=== PATIENT | male | born 1935 | race Caucasian/White ===

== ENCOUNTER → 2020-01-14 13:47 | Outpatient (BNVA) | payer MEDICARE, OTHER, SELFPAY | PROVIDERS: Family Provider Family Medicine; PCP Family Medicine; Visit Provider Urology | DX: N39.0 Urinary tract infection, site not specified (principal); N40.1 Benign prostatic hyperplasia with lower urinary tract symptoms | CPT/HCPCS: 81001 ==

== ENCOUNTER 2021-03-27 06:41 | Emergency (ER) | payer MEDICARE, OTHER, SELFPAY ==
[2021-03-27] VITALS (9 sets, daily range): BP systolic 136–164; BP diastolic 73–96; PULSE 59–72; RESP 16–23; TEMP 36.6–36.7; O2SAT 98–99; BMI 31.8
--- NOTE | 2021-03-27 06:57 | ED_ITS ---
HPI - Chest Pain General: Chief Complaint: Chest Pain Stated Complaint: CP: TOOK NITRO RECEIVED SOME RELIEF Time Seen by Provider: 03/27/21 06:43 History of Present Illness: HPI narrative: 86-year-old male presents emergency room with complaint of chest pain. Patient has a known history of coronary artery disease had a bypass in 1989. Chest pain woke him from sleep at around 4 AM this morning. He took a sublingual nitro and had complete relief of pain wi thin about 5 minutes. He had no recurrence since then. He is a known history of aortic stenosis for which she sees x ray inspector in [place] and gets yearly echocardiograms. Patient denies any other recent episodes of chest pain. He did have some associated shortness of breath no radiation of pain no nausea or diaphoresis. MD complaint: chest pain Pertinent past history: coronary artery disease and CABG Onset (ago): hour(s) Timing of current episode: episodic Prior episodes: Yes Onset: during rest Pain location: substernal and left chest Pain radiation: none Severity: moderate Quality: tightness and heaviness Relieving factors: nitroglycerin Exacerbating factors: nothing Associated symptoms: Reports dyspnea; Deny abdominal pain, diaphoresis, fever(s), leg edema, nausea, palpitations, sense of impending doom, syncope or vomiting Treatment prior to arrival: none Review of Systems Const: Denies: fever(s) or diaphoresis ENMT: Denies: throat pain, ear or mastoid pain, nasal discharge or nasal c ongestion Card: Denies: palpitations or syncope Resp: Reports: dyspnea GI: Denies: abdominal pain, nausea or vomiting : Denies: flank pain, dysuria, urinary frequency or urinary urgency Skin/Breast: Denies: rash or pruritus PFSH ED PFSH: Medical History (Updated 03/27/21 @ 10:09 by Arnold Lee DO) BPH loc w urin obs/LUTS Recurrent UTI Surgical History H/O colostomy H/O hernia repair H/O major abdominal surgery H/O shoulder surgery Hx of CABG Family History Family/Other Cancer CAD (coronary artery disease) Diabetes Social History Smoking and tobacco status: never smoked Alcohol intake: never Marital status: Physical Exam Const: COMMON NORMALS: no acute distress GENERAL APPEARANCE: cooperative and comfortable ORIENTATION/CONSCIOUSNESS: Yes awake, Yes oriented to person, Yes oriented to place and Yes oriented to time HENMT: COMMON NORMALS: normocephalic, atraumatic and hearing grossly normal bilaterally HEAD & SCALP: normocephalic and atraumatic Neck/C-Spine: COMMON NORMALS: no JVD Resp: COMMON NORMALS: normal respiratory effort, No retractions, No use of accessory muscles and clear to auscultation bilaterally AUSCULTATION: clear to auscultation bilaterally Cardio: COMMON NORMALS: no JVD, regular rate, regular rhythm and No murmurs present (Cardio) RATE: regular rate RHYTHM: regular rhythm GI: COMMON NORMALS: Soft to palpation and No hepatosplenomegaly present AUSCULTATION: Yes normoactive bowel sounds PALPATION: Yes Soft to palpation, No Tenderness to palpation present (GI), No Guarding due to palpation present (GI) and Yes No hepatosplenomegaly present Extremity: COMMON NORMALS: normal to inspection, capillary refill normal, no clubbing, cyanosis or edema, no calf tenderness and no pedal edema Neuro: SENSORIUM/ORIENTATION: Yes oriented to person, Yes oriented to place and Yes oriented to time Skin: COMMON NORMALS: no rashes or lesions noted GENERAL SKIN EXAM: no rashes or lesions noted Course Vital Signs: Vital signs: Vital Signs Temperature 98.1 F 03/27/21 08:53 Pulse Rate 67 03/27/21 10:25 Respiratory Rate 20 H 03/27/21 10:25 Blood Pressure 150/76 03/27/21 10:25 Pulse Oximetry 99 03/27/21 10:25 MDM - Chest Pain MDM Narrative: Medical decision making narrative: Labs x-rays and EKGs reviewed as on the chart. No acute changes noted. Reviewed the findings with the patient. I recommended that he be placed on observation for 6-hour troponin and further evaluation he does not want to do that and instead prefers to go home. Unknown start on isosorbide mononitrate did DC his hydrochlorothiazide continue baby aspirin daily. If he has any worsening symptoms return additionally we gave him a prescription for sublingual nitro. Lab Data: Labs: Lab Results 03/27/21 03/27/21 03/27/21 06:46 06:46 06:46 WBC 7.3 10^3/uL 10^3/ uL (4.0-10.0) RBC 4.50 10^6/uL 10^6 /uL (4.1-5.3) Hgb 10.9 g/dL L g/dL (11.7-16.6) Hct 36.1 % L % (42.0-52.0) MCV 80.2 fl fl (80-94) MCH 24.2 pg L pg (28.0-34.0) MCHC 30.2 g/dL g/dL (30.0-36.0) RDW 15.2 % H % (12.1-15.1) Plt Count 250 10^3/cmm 10^3 /cmm (130-400) MPV 9.1 fL fL (7.4-10.4) Neut % (Auto) 65.1 % % Lymph % (Auto) 19.5 % % Tucker % (Auto) 10.5 % % Eos % (Auto) 4.2 % % Baso % (Auto) 0.4 % % Neut # (Auto) 4.77 10^3/uL 10^3 /uL (1.8-7.7) Lymph # (Auto) 1.4 10^3/uL 10^3/ uL (0.8-4.8) Tucker # (Auto) 0.8 10^3/uL 10^3/ uL (0.2-0.9) Eos # (Auto) 0.3 10^3/uL 10^3/ uL (0.0-0.8) Baso # (Auto) 0.0 10^3/uL 10^3/ uL (0.0-0.1) Nucleated RBC % (a uto) 0 % % Nucleated RBCs # 0.0 /100WBC /100W BC Sodium 138 mmol/L mmol/L (136-145) Potassium 4.0 mmol/L mmol/L (3.5-5.1) Chloride 103 mmol/L mmol/L (98-107) Carbon Dioxide 28 mmol/L mmol/L (22-29) Anion Gap 11.0 (5-19) BUN 14 mg/dL mg/dL (8-23) Creatinine 0.7 mg/dL mg/dL (0.7-1.2) GFR Calculation Not Reportable Glucose 89 mg/dL mg/dL (65-115) Calculated Osmolal ity 286 mOsm/kg mOsm/ kg (285-295) Calcium 9.0 mg/dL mg/dL (8.5-10.5) Total Bilirubin 0.4 mg/dL mg/dL (0.15-1.2) AST 17 U/L U/L (0-40) ALT 11 U/L U/L (0-41) Alkaline Phosphata se 70 IU/L IU/L (40-130) Troponin T Baselin e 16 ng/L H ng/L (0-15) Troponin T 120 Min [place] Troponin T Total Protein 6.9 g/dL g/dL (6.6-8.7) Albumin 3.9 g/dL g/dL (3.5-5.2) Globulin 3.0 g/dL g/dL (1.3-4.6) 03/27/21 09:01 WBC RBC Hgb Hct MCV MCH MCHC RDW Plt Count MPV Neut % (Auto) Lymph % (Auto) Tucker % (Auto) Eos % (Auto) Baso % (Auto) Neut # (Auto) Lymph # (Auto) Tucker # (Auto) Eos # (Auto) Baso # (Auto) Nucleated RBC % (a uto) Nucleated RBCs # Sodium Potassium Chloride Carbon Dioxide Anion Gap BUN Creatinine GFR Calculation Glucose Calculated Osmolal ity Calcium Total Bilirubin AST ALT Alkaline Phosphata se Troponin T Baselin e Troponin T 120 Min [place] 14.09 ng/L ng/L (0-15) Delta Troponin T -1.91 ABS# L ABS# (0-10) Total Protein Albumin Globulin Discharge Plan Discharge Patient Disposition: Home Clinical Impression: Chest pain Condition: Stable Prescriptions: New isosorbide mononitrate 30 mg tablet extended release 24 hr 30 mg PO DAILY Qty: 30 RF: 0 Discontinued hydrochlorothiazide 25 mg tablet 25 mg PO DAILY RF: 0 No Action potassium chloride 10 mEq capsule, extended release 20 meq PO DAILY RF: 0 finasteride 5 mg tablet 5 mg PO DAILY RF: 0 aspirin [Aspir-81] 81 mg tablet,delayed release (DR/EC) 81 mg PO DAILY RF: 0 omeprazole 10 mg capsule,delayed release(DR/EC) 10 mg PO DAILY RF: 0 simvastatin 80 mg tablet 80 mg PO DAILY RF: 0 metoprolol succinate 25 mg capsule,sprinkle,ER 24hr 25 mg PO DAILY RF: 0 tamsulosin 0.4 mg capsule See Rx Instructions .ROUTE .COMPLEX Qty: 30 RF: 3 Discharge Orders: Discharge ED (Routine); Ordered 03/27/21 Ordered By: Arnold Lee Referrals: Franko Tavarez MD [Primary Care Provider] - Discharge Diet: Usual diet Discharge Activity: Limit activity as instructed Patient Instructions: Opioid Safety Activity Restrictions/Additional Instructions: Case management will make arrangements for you to have a Lexiscan sestamibi stress test and a follow-up appointment with cardiology. Coding Level of Care Code ED Pointer Machine Operator for Malik Fwrosalind Exam Comprehensive
--- NOTE | 2021-03-27 06:58 | ECG_ITS ---
[facility] Test Date: 2021-03-27 Pat Name: José uLis Castaneda Department: Room: Gender: Male Bundle Clerk: : 1935 Requested By: Arnold Armas Order Number: [id number] Henok MD: Ameya Recinos M.D. Measurements Intervals [place] Rate: 75 P: 24 OR: 214 QRS: 41 QRSD: 95 T: 69 QT: 371 QTc: 415 Interpretive Statements SINUS RHYTHM WITH FIRST DEGREE AV BLOCK WITH OCCASIONAL SUPRAVENTRICULAR PREMATURE COMPLEXES NONSPECIFIC T-WAVE ABNORMALITY Compared to ECG 05/15/2019 14:07:56 Possible ischemia no longer present T-wave abnormality still present Electronically Signed On 03-27-2021 21:09:49 CDT by Ameya Recinos M.D. [email or web address] [facility].[email or web address]/store/[id number]
--- NOTE | 2021-03-27 06:58 | XRR_ITS ---
PROCEDURE INFORMATION: Exam: XR Chest Exam date and time: 03/27/2021 6:58 AM Age: 86 years old Clinical indication: Sternal or substernal pain; Prior surgery; Surgery date: 6+ months; Additional info: Chest pain TECHNIQUE: Imaging protocol: XR of the chest. Views: 1 view. COMPARISON: CR Chest 1 [place] [id number] 05/15/2019 7:55 AM FINDINGS: Lungs: Unremarkable. No consolidation. Pleural spaces: Unremarkable. No pleural effusion. No pneumothorax. Heart/Mediastinum: The patient has undergone coronary bypass surgery. The heart is not enlarged for the AP projection. Bones/joints: Bilateral shoulder prostheses are present. XR/XR chest 1V portable [id number] IMPRESSION: No acute cardiopulmonary abnormality.
[2021-03-27] MEDS: aspirin 81 mg Chew Tablet 324 MG PO (07:04)
[2021-03-27 07:08] LABS: Basophils % 0.4 %; Eosinophils # 0.3 10^3/uL (0.0-0.8); Eosinophils % 4.2 %; Hematocrit 36.1 % (42.0-52.0); Hemoglobin 10.9 g/dL (11.7-16.6); Lymphocytes # 1.4 10^3/uL (0.8-4.8); Lymphocytes % 19.5 %; Mean Corpuscular HGB Conc 30.2 g/dL (30.0-36.0); Mean Corpuscular Hemoglobin 24.2 pg (28.0-34.0); Mean Corpuscular Volume 80.2 fl (80-94); Mean Platelet Volume 9.1 fL (7.4-10.4); Monocytes # 0.8 10^3/uL (0.2-0.9); Monocytes % 10.5 %; Neutrophils # 4.77 10^3/uL (1.8-7.7); Neutrophils % 65.1 %; Nucleated Red Blood Cells % 0 %; Platelet Count 250 10^3/cmm (130-400); Red Cell Distribution Width 15.2 % (12.1-15.1); White Blood Count 7.3 10^3/uL (4.0-10.0)
[2021-03-27 07:27] LABS: Troponin(5th) Baseline 16 ng/L (0-15)
[2021-03-27 07:30] LABS: Alanine Aminotransferase 11 U/L (0-41); Albumin Level 3.9 g/dL (3.5-5.2); Alkaline Phosphatase 70 IU/L (40-130); Aspartate Amino Transferase 17 U/L (0-40); Blood Urea Nitrogen 14 mg/dL (8-23); Carbon Dioxide 28 mmol/L (22-29); Chloride 103 mmol/L (98-107); Glucose 89 mg/dL (65-115); Osmolality Calculated 286 mOsm/kg (285-295); Sodium 138 mmol/L (136-145); Total Bilirubin 0.4 mg/dL (0.15-1.2); Total Protein 6.9 g/dL (6.6-8.7)
--- NOTE | 2021-03-27 08:58 | ECG_ITS ---
[facility] Test Date: 2021-03-27 Pat Name: José Luis Castaneda Department: Room: Gender: Male Rcis: : 1935 Requested By: Arnold Armas Order Number: [id number] Henok MD: Ameya Recinos M.D. Measurements Intervals [place] Rate: 69 P: 14 SC: 218 QRS: 49 QRSD: 100 T: 90 QT: 414 QTc: 445 Interpretive Statements SINUS RHYTHM WITH FIRST DEGREE AV BLOCK WITH OCCASIONAL VENTRICULAR PREMATURE COMPLEXES NONSPECIFIC T-WAVE ABNORMALITY Compared to ECG 03/27/2021 06:47:12 Ventricular premature complex(es) now present T-wave abnormality still present Electronically Signed On 03-27-2021 21:13:37 CDT by Ameya Recinos M.D. [email or web address] [email or web address] community hospitalApplication [facility]thol[facility].[employer]/store/OM/[id number]
[2021-03-27 09:47] LABS: Troponin 5 2HR 14.09 ng/L (0-15)
[2021-03-27 09:48] LABS: Troponin 5 2HR Delta -1.91 ABS# (0-10)
--- NOTE | 2021-03-30 09:18 | DCPLANNER ---
Addendum entered by Nicole Cotto 07/22/21 17:39: Patient had a follow up appointment scheduled with [facility] - this appointment was cancelled. Original Note: auto specialty services manager had message to schedule a follow up appointment for patient with heart care and an outpatient stress test. auto specialty services manager called heart care, spoke with Mary, gave clinic patients information. A follow up appointment was scheduled for April at 10:[address] Nava. auto specialty services manager called patient and gave patient the appointment information. auto specialty services manager also called patients daughter and gave her the appointment information. 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 Daughter is unsure if patient wants to still see the special class welder in [place] or if he wants to see someone in [place]. Patient is going to keep the scheduled appointment at this time, if patient wants to continue to see his special class welder in [place], daughter will call and cancel the appointment with [facility] in [place]. As far as the stress test is concerned, nurse outreach case manager is waiting to hear back from patients daughter to see if stress test will be scheduled in [place], or if it will be scheduled in [place]. Patients daughter stated that she would call nurse outreach case manager back and inform nurse outreach case manager where the stress test will be scheduled at.
== END 2021-03-27 10:25 | disposition home or self-care (01) ==
PROVIDERS: Emergency Provider Family Medicine; PCP Family Medicine
DX: R07.9 Chest pain, unspecified (principal); Z79.82 Long term (current) use of aspirin; Z95.1 Presence of aortocoronary bypass graft
CPT/HCPCS: 71045; 80053; 84484; 85025; 93005; 99284

== ENCOUNTER 2022-05-03 13:28 | Outpatient (RCR) | payer MEDICARE, OTHER, SELFPAY | END 2022-06-01 23:59 | disposition home or self-care (01) | LOC: CR 13:28 | PROVIDERS: PCP Family Medicine; Referring Provider Internal Medicine Cardiovascular Disease; Visit Provider Family Medicine | DX: Z95.2 Presence of prosthetic heart valve (principal) | CPT/HCPCS: 93798 ==

== ENCOUNTER 2022-05-27 15:36 | Outpatient (CLI) | payer MEDICARE, OTHER, SELFPAY ==
--- NOTE | 2022-05-27 | CT_ITS ---
WS: [id number] CT HEAD NONCONTRAST HISTORY: AMNESIA TECHNIQUE: Contiguous axial imaging performed through the brain in 2.5 mm imaging. Bone and soft tiss ue windows. Sagittal and coronal reformats reviewed. All CT scans at [facility] use at least one of these dose optimization techniques: automated exposure control; mA and/or kV adjustment per pa tient size (includes targeted exams where dose is matched to clinical indication); or iterative recon struction. DLP: 1003.98 mGy.cm COMPARISON: 07/15/2008 No acute intracranial hemorrhage, midline shift or mass effect. Moderate atrophy is symmetric bilaterally. Moderate bilateral small vessel ischemic disease. There is also moderate bilateral cerebellar atrophy. There is been a significant progression of atrophy and s mall vessel ischemic disease since 2008. Ventricles: Ventricles and extra-axial spaces are dilated on the basis of the atrophy. No inferior displacement of the cerebellar tonsils. Paranasal sinuses: As visualized are clear. Mastoid air cells: Well pneumatized. Calvarium and scalp: Skull is intact with no soft tissue edema or swelling. CT/CT head wo con* [id number] IMPRESSION: 1. No acute intracranial hemorrhage or edema. 2. Significant progression of cerebellar and cerebral atrophy and small vessel ischemic disease since 2008.
== END 2022-05-27 15:37 | disposition home or self-care (01) ==
LOC: RAD 15:36
PROVIDERS: PCP Nurse Practitioner Family; Visit Provider Nurse Practitioner Family
DX: R41.3 Other amnesia (principal)
CPT/HCPCS: 70450

== ENCOUNTER 2022-06-02 11:09 | Outpatient (RCR) | payer MEDICARE, OTHER, SELFPAY | END 2022-07-02 23:59 | disposition home or self-care (01) | LOC: CR 11:09 | PROVIDERS: PCP Nurse Practitioner Family; Referring Provider Internal Medicine Cardiovascular Disease; Visit Provider Family Medicine | DX: Z95.2 Presence of prosthetic heart valve (principal) | CPT/HCPCS: 93798 ==

== ENCOUNTER 2022-08-10 06:00 | Outpatient (RCR) | payer MEDICARE, OTHER, SELFPAY | END 2022-08-30 23:59 | disposition home or self-care (01) | LOC: TPS 06:00 | PROVIDERS: PCP Nurse Practitioner Family; Visit Provider Psychiatry & Neurology Neurology | DX: I69.30 Unspecified sequelae of cerebral infarction (principal) | CPT/HCPCS: 92507; 92523; 97110; 97116; 97161 ==

== ENCOUNTER 2022-08-15 23:37 | Emergency (ER) | payer MEDICARE, OTHER, SELFPAY ==
--- NOTE | 2022-08-15 23:38 | XRR_ITS ---
PROCEDURE INFORMATION: Exam: XR Chest Exam date and time: 08/15/2022 11:48 PM Age: 87 years old Clinical indication: Chest pressure; Prior surgery; Surgery type: Cabg. Tavr; Patient HX: C/O chest pain. ; Additional info: Cp TECHNIQUE: Imaging protocol: Radiologic exam of the chest. Views: 1 view. COMPARISON: CR XR chest 1V portable [id number] 03/27/2021 7:17 AM FINDINGS: Lungs: Visualized portions of the lungs are clear. Pleural spaces: Unremarkable. No pleural effusion. No pneumothorax. Heart/Mediastinum: Heart is within normal limits of size. Bones/joints: Sternotomy wires and mediastinal surgical clips are present, consistent with previous coronary arterial bypass grafting. There are bilateral shoulder replacements. XR/XR chest 1V portable [id number] IMPRESSION: No acute infiltrate.
--- NOTE | 2022-08-15 23:42 | ECG_ITS ---
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 Measurements Intervals [place] Rate: 69 P: -19 CT: 233 QRS: 3 QRSD: 96 T: 78 QT: 378 QTc: 406 Interpretive Statements SINUS RHYTHM WITH MARKED SINUS ARRHYTHMIA WITH FIRST DEGREE AV BLOCK POSSIBLE ANTERIOR MYOCARDIAL INFARCTION , OF INDETERMINATE AGE [30 ms Q WAVE IN V3/V4, OR R < 0.2 mV IN V4] Compared to ECG 03/27/2021 08:33:38 Myocardial infarct finding now present T-wave abnormality no longer present Electronically Signed On 08-16-2022 7:43:36 HEAVY MACHINERY ASSEMBLER by Ameya Recinos M.D. [email or web address] [email or web address]/[id number]
--- NOTE | 2022-08-15 23:44 | ED_ITS ---
HPI - Chest Pain General: Chief Complaint: Chest Pain Stated Complaint: cp Time Seen by Provider: 08/15/22 23:46 Source: patient Mode of arrival: ambulatory Limitations: no limitations History of Present Illness: 87-year-old male states that at 1039 he had an episode of chest pain he had taken a nitro and states the pain immediately resolved he has been pain-free since then. Denies any diaphoresis denies any shortness of breath he is resting comfortably currently. He has had extensive cardiac history including a CABG along with a valve replacement. Denies any nausea or vomiting. Associated symptoms: Deny abdominal pain, dyspnea, fever(s), nausea or vomiting Review of Systems Const: Denies: fever(s), chills, body aches or change in appetite Eyes: Denies: blurry vision or eye discomfort ENMT: Denies: throat pain or dental pain Card: Reports: chest pain Resp: Denies: dyspnea GI: Denies: abdominal pain, nausea, vomiting or diarrhea : Denies: dysuria Musc: Denies: neck pain or back pain Skin/Breast: Denies: rash Neuro: Denies: headache(s) Psych: Denies: depression Larry/Lymph: Denies: easy bruising All/Imm: Denies: urticaria PFSH ED PFSH: Medical History (Updated 08/16/22 @ 02:44 by Jez Prasad MD) BPH loc w urin obs/LUTS Recurrent UTI Surgical History H/O colostomy H/O hernia repair H/O major abdominal surgery H/O shoulder surgery Hx of CABG Family History Family/Other Cancer CAD (coronary artery disease) Diabetes Social History Smoking and tobacco status: never smoked Alcohol intake: never Marital status: Physical Exam Const: COMMON NORMALS: no acute distress, patient oriented x3 and healthy appearing HENMT: COMMON NORMALS: normocephalic and atraumatic HEAD & SCALP: normocephalic and atraumatic Eye: COMMON NORMALS: Equal, round and reactive pupils present and EOMs intact bilaterally PUPIL: Yes Equal, round and reactive pupils present Neck/C-Spine: COMMON NORMALS: full ROM and supple Chest: COMMONS NORMALS: normal inspection of the chest and normal palpation of entire chest wall Resp: COMMON NORMALS: normal respiratory effort, No retractions, No use of acc essory muscles and clear to auscultation bilaterally AUSCULTATION: clear to auscultation bilaterally Cardio: COMMON NORMALS: regular rate, regular rhythm and No murmurs present (Cardio) RATE: regular rate RHYTHM: regular rhythm GI: COMMON NORMALS: Normal to inspection, nondistended, normoactive bowel sounds present, Soft to palpation, non-tender and no masses PALPATION: Yes Soft to palpation Extremity: COMMON NORMALS: normal to inspection and full ROM Neuro: COMMON NORMALS: patient oriented x3, moves all extremities and no focal motor deficits Psych: COMMON NORMALS: mental status grossly normal, Normal thought process present and cooperative THOUGHT PROCESS: Normal thought process present Skin: COMMON NORMALS: no rashes or lesions noted and no wounds GENERAL SKIN EXAM: no rashes or lesions noted Course Vital Signs: Vital signs: Vital Signs Temperature 97.9 F 08/15/22 23:46 Pulse Rate 72 08/16/22 01:58 Respiratory Rate 21 H 08/16/22 01:58 Blood Pressure 157/80 08/16/22 01:58 Pulse Oximetry 97 08/16/22 01:58 Oxygen Delivery Me thod 08/16/22 01:58 MDM - Chest Pain Medical Decision Making Patient presents here chest pains atypical in nature has been pain-free here his initial repeat troponin here negative his EKG is normal he is stable for discharge he is to follow-up with PCP and return if worsening. Lab Data 08/15/22 23:45 08/15/22 23:45 Radiology Impressions Chest X-Ray 08/15/22 23:38 IMPRESSION: No acute infiltrate. Laboratory Results WBC 8.1 10^3/uL (4.0-10.0) 08/15/22 23:45 RBC 4.37 10^6/uL (4.1-5.3) 08/15/22 23:45 Hgb 11.4 g/dL (11.7-16.6) L 08/15/22 23:45 Hct 36.3 % (42.0-52.0) L 08/15/22 23:45 MCV 83.1 fl (80-94) 08/15/22 23:45 MCH 26.1 pg (28.0-34.0) L 08/15/22 23:45 MCHC 31.4 g/dL (30.0-36.0) 08/15/22 23:45 RDW 14.0 % (12.1-15.1) 08/15/22 23:45 Plt Count 174 10^3/cmm (130-400) 08/15/22 23:45 MPV 9.1 fL (7.4-10.4) 08/15/22 23:45 Neut % (Auto) 62.0 % 08/15/22 23:45 Lymph % (Auto) 23.1 % 08/15/22 23:45 [place]borne % (Auto) 11.6 % 08/15/22 23:45 Eos % (Auto) 2.4 % 08/15/22 23:45 Baso % (Auto) 0.5 % 08/15/22 23:45 Neut # (Auto) 5.01 10^3/uL (1.8-7.7) 08/15/22 23:45 Lymph # (Auto) 1.9 10^3/uL (0.8-4.8) 08/15/22 23:45 [place]borne # (Auto) 0.9 10^3/uL (0.2-0.9) 08/15/22 23:45 Eos # (Auto) 0.2 10^3/uL (0.0-0.8) 08/15/22 23:45 Baso # (Auto) 0.0 10^3/uL (0.0-0.1) 08/15/22 23:45 Nucleated RBC % (auto) 0 % 08/15/22 23:45 Nucleated RBCs # 0.0 /100WBC 08/15/22 23:45 Sodium 136 mmol/L (136-145) 08/15/22 23:45 Potassium 4.2 mmol/L (3.5-5.1) 08/15/22 23:45 Chloride 102 mmol/L (98-107) 08/15/22 23:45 Carbon Dioxide 25 mmol/L (22-29) 08/15/22 23:45 Anion Gap 13.2 (5-19) 08/15/22 23:45 BUN 14 mg/dL (8-23) 08/15/22 23:45 Creatinine 0.9 mg/dL (0.7-1.2) 08/15/22 23:45 GFR Calculation Not Reportable 08/15/22 23:45 Glucose 82 mg/dL (65-115) 08/15/22 23:45 Calculated Osmolality 282 mOsm/kg (285-295) L 08/15/22 23:45 Calcium 8.6 mg/dL (8.5-10.5) 08/15/22 23:45 Total Bilirubin 0.2 mg/dL (0.15-1.2) 08/15/22 23:45 AST 17 U/L (0-40) 08/15/22 23:45 ALT 12 U/L (0-41) 08/15/22 23:45 Alkaline Phosphatase 78 U/L (40-130) 08/15/22 23:45 Troponin T Baseline 15 ng/L (0-15) 08/15/22 23:45 Troponin T 120 Minute 15.76 ng/L (0-15) H 08/16/22 02:08 Delta Troponin T 0.76 ABS# (0-10) 08/16/22 02:08 Total Protein 6.2 g/dL (6.6-8.7) L 08/15/22 23:45 Albumin 3.7 g/dL (3.5-5.2) 08/15/22 23:45 Globulin 2.5 g/dL (1.3-4.6) 08/15/22 23:45 EKG Data EKG 1: I personally reviewed and interpreted this EKG as follows: EKG interpretation date: 08/15/22 EKG interpretation time: 23:42 Interpretation: nsr hr [address] or t wave abnormalities qrs 96 qtc 397 Discharge Plan Discharge Patient Disposition: Home Clinical Impression: Chest pain Condition: Stable Prescriptions: No Action potassium chloride 10 mEq capsule, extended release 20 meq PO DAILY finasteride 5 mg tablet 5 mg PO DAILY aspirin [Aspir-81] 81 mg tablet,delayed release (DR/EC) 81 mg PO DAILY omeprazole 10 mg capsule,delayed release(DR/EC) 10 mg PO DAILY simvastatin 80 mg tablet 40 mg PO DAILY amoxicillin-pot clavulanate 875-125 mg tablet 1 tab PO BID Qty: 20 0RF Discharge Orders: Discharge ED (Routine); Ordered 08/16/22 Ordered By: Jez Prasad Referrals: Zulema Manning APN [Primary Care Provider] - Discharge Diet: Advance as tolerated Discharge Activity: Resume usual activity Patient Instructions: Chest Pain (ED) Coding Level of Care Code ED Inside Sales Account Manager for Malik Arboleda
[2022-08-15 23:46] VITALS: BP 167/91; PULSE 79; RESP 18; TEMP 36.6; O2SAT 96; BMI 25.8
[2022-08-15 23:53] LABS: Basophils % 0.5 %; Eosinophils # 0.2 10^3/uL (0.0-0.8); Eosinophils % 2.4 %; Hematocrit 36.3 % (42.0-52.0); Hemoglobin 11.4 g/dL (11.7-16.6); Lymphocytes # 1.9 10^3/uL (0.8-4.8); Lymphocytes % 23.1 %; Mean Corpuscular HGB Conc 31.4 g/dL (30.0-36.0); Mean Corpuscular Hemoglobin 26.1 pg (28.0-34.0); Mean Corpuscular Volume 83.1 fl (80-94); Mean Platelet Volume 9.1 fL (7.4-10.4); Monocytes # 0.9 10^3/uL (0.2-0.9); Monocytes % 11.6 %; Neutrophils # 5.01 10^3/uL (1.8-7.7); Nucleated Red Blood Cells % 0 %; Platelet Count 174 10^3/cmm (130-400); Red Blood Count 4.37 10^6/uL (4.1-5.3); White Blood Count 8.1 10^3/uL (4.0-10.0)
[2022-08-16 00:08] LABS: Alanine Aminotransferase 12 U/L (0-41); Albumin Level 3.7 g/dL (3.5-5.2); Alkaline Phosphatase 78 U/L (40-130); Anion Gap 13.2 (5-19); Aspartate Amino Transferase 17 U/L (0-40); Blood Urea Nitrogen 14 mg/dL (8-23); Calcium 8.6 mg/dL (8.5-10.5); Carbon Dioxide 25 mmol/L (22-29); Chloride 102 mmol/L (98-107); Globulin 2.5 g/dL (1.3-4.6); Glucose 82 mg/dL (65-115); Osmolality Calculated 282 mOsm/kg (285-295); Potassium 4.2 mmol/L (3.5-5.1); Sodium 136 mmol/L (136-145); Total Bilirubin 0.2 mg/dL (0.15-1.2); Total Protein 6.2 g/dL (6.6-8.7)
[2022-08-16 00:10] LABS: Troponin(5th) Baseline 15 ng/L (0-15)
[2022-08-16] MEDS: hyDRALAzine 20 mg/mL INJ 1 mL 10 MG IVP (01:40)
[2022-08-16 01:58] VITALS: BP 157/80; PULSE 72; RESP 21; O2SAT 97
[2022-08-16 02:32] LABS: Troponin 5 2HR 15.76 ng/L (0-15)
[2022-08-16 02:34] LABS: Troponin 5 2HR Delta 0.76 ABS# (0-10)
== END 2022-08-16 02:57 | disposition home or self-care (01) ==
PROVIDERS: Emergency Provider Emergency Medicine; PCP Nurse Practitioner Family
DX: R07.9 Chest pain, unspecified (principal); Z79.82 Long term (current) use of aspirin; Z95.1 Presence of aortocoronary bypass graft
CPT/HCPCS: 71045; 80053; 84484; 85025; 93005; 96374; 99285; J0360

== ENCOUNTER 2022-08-31 06:00 | Outpatient (RCR) | payer MEDICARE, OTHER, SELFPAY | END 2022-09-30 23:59 | disposition home or self-care (01) | LOC: TPS 06:00 | PROVIDERS: PCP Nurse Practitioner Family; Visit Provider Psychiatry & Neurology Neurology | DX: I63.9 Cerebral infarction, unspecified (principal) | CPT/HCPCS: 92507 ==

== ENCOUNTER 2022-10-01 06:00 | Outpatient (RCR) | payer MEDICARE, OTHER, SELFPAY | END 2022-10-17 23:59 | disposition home or self-care (01) | LOC: TPS 06:00 | PROVIDERS: PCP Nurse Practitioner Family; Visit Provider Psychiatry & Neurology Neurology | DX: I69.30 Unspecified sequelae of cerebral infarction (principal) | CPT/HCPCS: 92507 ==

== ENCOUNTER 2023-02-19 13:16 | Emergency (ER) | payer MEDICARE, OTHER, SELFPAY ==
[2023-02-19] VITALS (64 sets, daily range): BP systolic 129–172; BP diastolic 57–98; PULSE 69–100; RESP 13–39; TEMP 36.6–36.8; O2SAT 92–100
--- NOTE | 2023-02-19 13:20 | XRR_ITS ---
PROCEDURE INFORMATION: Exam: XR Chest Exam date and time: 02/19/2023 1:44 PM Age: 88 years old Clinical indication: Chest wall pain; Additional info: Cp TECHNIQUE: Imaging protocol: Radiologic exam of the chest. Views: 1 view. COMPARISON: CR XR chest 1V portable [id number] 08/15/2022 11:48 PM FINDINGS: Lungs: There is no consolidation. Pleural spaces: There is no pleural effusion or pneumothorax. Heart/Mediastinum: There is mild enlargement of the cardiac silhouette. Bones/joints: Sternal wires are present. There is no displacement to suggest sternal dehiscence. There is bilateral shoulder arthroplasty in satisfactory alignment. No acute fracture. XR/XR chest 1V portable [id number] IMPRESSION: No acute findings.
--- NOTE | 2023-02-19 13:32 | ECG_ITS ---
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 Measurements Intervals [place] Rate: 79 P: 0 [place]: 0 QRS: 48 QRSD: 91 T: 82 QT: 356 QTc: 409 Interpretive Statements SINUS RHYTHM WITH FIRST DEGREE AV BLOCK WITH PAC'S NONSPECIFIC T-WAVE ABNORMALITY ABNORMAL RHYTHM ECG Compared to ECG 08/15/2022 23:42:52 T-wave abnormality now present Sinus rhythm no longer present Sinus arrhythmia no longer present First degree AV block no longer present Myocardial infarct finding no longer present Electronically Signed On 02-21-2023 6:48:25 CDT by Parisa Harris M.D. [id number]
--- NOTE | 2023-02-19 13:43 | W.ED.CHESTPA ---
HPI - Chest Pain General: Chief Complaint: Chest Pain Stated Complaint: 2 day chest pain (1xnitro) Time Seen by Provider: 02/19/23 13:29 Source: patient and family Mode of arrival: ambulatory Limitations: no limitations History of Present Illness: Gentleman's family brought him to the emergency department because of concerns about episode of chest pain he had today as well as an episode he had 2 days ago. Patient states today he had left worship and was with his grandson and stopped to get something to drink and he took a drink of the Powerade that he purchased and shortly thereafter developed some chest discomfort. At the prompting of his family he took a nitroglycerin and his symptoms resolved very quickly afterwards. He has had no recurrence of symptoms since that time. He also had an episode of chest pain approximately 2 days ago that responded quickly to sublingual nitroglycerin. The episode occurred 2 days ago was when he was walking from the house back to the barn. He had no intervening chest pain between that time and this morning. He has a known history of coronary artery disease had 5 vessel bypass done approximately over 30 years ago.. 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 He currently takes Eliquis and has a history of intermittent atrial fibrillation. He denies any recent cough fevers or other concurrent illness. The episode of pain today was substernal and did not radiate and was not associated with any nausea vomiting diaphoresis etc. His family reports that he still likes to work out in the yard and mows his lawn's etc. but likely does not keep up on his water intake particularly in warm weather. 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 Pertinent past history: coronary artery disease Pain location: substernal Quality: fullness Relieving factors: nitroglycerin Associated symptoms: Deny abdominal pain, fever(s), nausea, palpitations, syncope or vomiting Review of Systems Const: Denies: fever(s) or chills Eyes: Denies: change in vision ENMT: Denies: throat pain, nasal discharge or nasal congestion Card: Reports: chest pain and irregular heart rhythm; Denies: palpitations, syncope or pre-syncope Resp: Denies: productive cough, non-productive cough or wheezing GI: Denies: abdominal pain, nausea, vomiting or diarrhea : Denies: flank pain, difficulty urinating, dysuria or urinary frequency Musc: Denies: neck pain, extremity pain or extremity swelling Skin/Breast: Denies: rash or pruritus Neuro: Denies: headache(s), numbness in extremities or weakness in extremities Endo: Denies: polyuria or polydipsia PFSH ED PFSH: Medical History (Updated 02/19/23 @ 15:25 by Joe Laboy DO) BPH loc w urin obs/LUTS Recurrent UTI Surgical History H/O colostomy H/O hernia repair H/O major abdominal surgery H/O shoulder surgery Hx of CABG Family History Family/Other Cancer CAD (coronary artery disease) Diabetes Social History Smoking and tobacco status: never smoked Alcohol intake: never Substance/Drug Use: never Marital status: Physical Exam Narrative: EXAM NARRATIVE: He appears to be very comfortable, makes good eye contact answers questions appropriately. Const: COMMON NORMALS: no acute distress, average body habitus, patient oriented x3, healthy appearing and alert GENERAL APPEARANCE: cooperative and comfortable HENMT: COMMON NORMALS: normocephalic, Normal nasal mucous membranes and turbinates present, moist oral mucous membranes and oropharynx normal HEAD & SCALP: normocephalic NOSE: Normal nasal mucous membranes and turbinates present Eye: COMMON NORMALS: Equal, round and reactive pupils present, EOMs intact bilaterally and conjunctivae normal CONJUNCTIVA: Yes conjunctivae normal PUPIL: Yes Equal, round and reactive pupils present Neck/C-Spine: COMMON NORMALS: full ROM, no lymphadenopathy, no JVD and No carotid bruits Chest: COMMONS NORMALS: normal inspection of the chest and normal palpation of entire chest wall OTHER: Midline surgical scar Resp: COMMON NORMALS: normal respiratory effort, No retractions, No use of accessory muscles and clear to auscultation bilaterally EFFORT & INSPECTION: Yes able to speak in complete sentences AUSCULTATION: clear to auscultation bilaterally Cardio: COMMON NORMALS: no JVD and Peripheral pulses 2+ throughout RHYTHM: abnormal rhythm irregularly irregular HEART SOUNDS: Murmur heart sound present PERIPHERAL PULSES: Peripheral pulses 2+ throughout GI: COMMON NORMALS: Normal to inspection, nondistended, normoactive bowel sounds present, Soft to palpation and non-tender PALPATION: Yes Soft to palpation : COMMON NORMALS: Yes no CVA tenderness BLADDER/KIDNEY EXAM: Yes no CVA tenderness Back/Pelvis: COMMON NORMALS: no CVA tenderness, thoracic and lumbar spine normal to inspection, no thoracic nor lumbar tenderness, thoraco-lumbar ROM normal and straight leg raise negative bilaterally Extremity: COMMON NORMALS: normal to inspection, full ROM, capillary refill normal, no calf tenderness and no pedal edema Neuro: COMMON NORMALS: patient oriented x3, moves all extremities, no focal motor deficits and no sensory deficits noted SENSORIUM/ORIENTATION: Yes alert CRANIAL NERVES: Yes CN normal except as noted Psych: COMMON NORMALS: mental status grossly normal Skin: COMMON NORMALS: no rashes or lesions noted, no wounds and turgor normal GENERAL SKIN EXAM: no rashes or lesions noted and turgor normal Course Reevaluation(s): Reevaluation #1: Hemoglobin results were noted. Discussed with the patient and family. No history of bright red blood or black tarry stools per rectum. He does take omeprazole but there is not any clear history of GI bleeding. Other than 81 mg of aspirin he does not take any other antiplatelets or blood thinning medication. Rectal examination performed which reveals guaiac positive results on the test card. He apparently does take Eliquis which was not on our medication profile which is likely a contributing factor to his ongoing blood loss. I discussed the implications of his low hemoglobin with his history of coronary disease and recommended a transfusion. He will need to be placed in observation to complete the transfusion and that and then at that time determine whether he needs endoscopy. Time: 14:49 Reevaluation #2: After consideration the family would like to entertain an determine if he can be transferred to [facility] for continued care. He apparently has a follow-up this coming Monday with the valve team and they are trying to reduce the likelihood that that appointment will be compromised by him being at this facility. I discussed that this would be a family requested transfer as we have the capabilities to take care of his current acute condition in the emergency department. They acknowledged this discussion. We will go ahead and contact [facility] transfer center. Again this is a patient requested transfer. He is absolutely hemodynamically stable. Time: 15:02 Reevaluation #3: First unit of packed red cells are being readied for transfusion at this time. Patient remains chest pain-free and otherwise asymptomatic. Repeat troponin is essentially unchanged. Time: 16:43 Consultations: Consultation #1: I spoke with the check and transfer beader at [facility] who mediated conversation between Rebecca the NAPPER FIXER for the hospitalist team and myself. We discussed current case and she voiced understanding and agreed to accept the patient on behalf of doctors agree for admission to [facility]. Time: 15:24 Vital Signs: Vital signs: Vital Signs Temperature 97.9 F 02/19/23 13:21 Pulse Rate 81 02/19/23 15:10 Respiratory Rate 28 H 02/19/23 14:55 Blood Pressure 146/80 02/19/23 15:10 Pulse Oximetry 99 02/19/23 15:05 Oxygen Delivery Me thod Room Air 02/19/23 13:21 MDM - Chest Pain Medical Decision Making This patient was transported to the emergency room by his family because of chest pain. He has had a couple of episodes of chest pain over the past 2 days that have been relieved by nitroglycerin. There is also a history of increasing fatigue and dyspnea with usual activity over the past 2 to 10 days or so that has changed from his baseline. He arrived chest pain-free. He had short durations of chest pain. His past history is notable for coronary disease as well as a recent TAVR within the last 12 months. Clinical examination initially revealed a alert and cooperative gentleman without any focal findings. Studies were undertaken to determine if the patient was having ACS or unstable angina versus other potential etiologies of her symptoms. Initial hemoglobin returned and was 6.9 which is a marked change from his previous hemoglobins contained within our system. He had no symptoms of lower GI bleeding however a rectal examination revealed guaiac positive stool in the vault. These findings were shared with patient and family and we discussed treatment options to include transfusion and further evaluation. Both patient and family expressed desire to be transferred to [facility] because of a upcoming follow-up with the valve replacement team this coming week. I explained to them that we have the capabilities to transfuse and do endoscopy if necessary but I understood their desires. [facility] was contacted and agreed to accept the patient. We will initiate his blood transfusion here pending bed assignment. He is currently clinically and hemodynamically stable. Does have a initial troponin elevation over the URL however he no acute ischemic changes on EKG and he was asymptomatic. Medical Records I reviewed the patient's medical records. Evidence of prior normal hemoglobins. Lab Data I reviewed the patient's lab results. 02/19/23 14:12 02/19/23 14:12 Radiology Impressions Chest X-Ray 02/19/23 13:20 IMPRESSION: No acute findings. Laboratory Results WBC 8.5 10^3/uL (4.0-10.0) 02/19/23 14:12 RBC 3.75 10^6/uL (4.1-5.3) L 02/19/23 14:12 Hgb 6.9 g/dL (11.7-16.6) L 02/19/23 14:12 Hct 25.3 % (42.0-52.0) L 02/19/23 14:12 MCV 67.5 fl (80-94) L 02/19/23 14:12 MCH 18.4 pg (28.0-34.0) L 02/19/23 14:12 MCHC 27.3 g/dL (30.0-36.0) L 02/19/23 14:12 RDW 16.3 % (12.1-15.1) H 02/19/23 14:12 Plt Count 317 10^3/cmm (130-400) 02/19/23 14:12 MPV 9.2 fL (7.4-10.4) 02/19/23 14:12 Neut % (Auto) 69.4 % 02/19/23 14:12 Lymph % (Auto) 17.5 % 02/19/23 14:12 Fleming % (Auto) 9.8 % 02/19/23 14:12 Eos % (Auto) 2.4 % 02/19/23 14:12 Baso % (Auto) 0.4 % 02/19/23 14:12 Neut # (Auto) 5.87 10^3/uL (1.8-7.7) 02/19/23 14:12 Lymph # (Auto) 1.5 10^3/uL (0.8-4.8) 02/19/23 14:12 Fleming # (Auto) 0.8 10^3/uL (0.2-0.9) 02/19/23 14:12 Eos # (Auto) 0.2 10^3/uL (0.0-0.8) 02/19/23 14:12 Baso # (Auto) 0.0 10^3/uL (0.0-0.1) 02/19/23 14:12 Nucleated RBC % (auto) 0 % 02/19/23 14:12 Nucleated RBCs # 0.0 /100WBC 02/19/23 14:12 Sodium 135 mmol/L (136-145) L 02/19/23 14:12 Potassium 4.3 mmol/L (3.5-5.1) 02/19/23 14:12 Chloride 101 mmol/L (98-107) 02/19/23 14:12 Carbon Dioxide 25 mmol/L (22-29) 02/19/23 14:12 Anion Gap 13.3 (5-19) 02/19/23 14:12 BUN 16 mg/dL (8-23) 02/19/23 14:12 Creatinine 0.9 mg/dL (0.7-1.2) 02/19/23 14:12 GFR Calculation Not Reportable 02/19/23 14:12 Glucose 78 mg/dL (65-115) 02/19/23 14:12 Calculated Osmolality 280 mOsm/kg (285-295) L 02/19/23 14:12 Calcium 8.6 mg/dL (8.5-10.5) 02/19/23 14:12 Total Bilirubin 0.3 mg/dL (0.15-1.2) 02/19/23 14:12 AST 16 U/L (0-40) 02/19/23 14:12 ALT 11 U/L (0-41) 02/19/23 14:12 Alkaline Phosphatase 75 U/L (40-130) 02/19/23 14:12 Troponin T Baseline 23 ng/L (0-15) H 02/19/23 14:12 Troponin T 120 Minute 22.23 ng/L (0-15) H 02/19/23 15:38 Delta Troponin T -0.77 ABS# (0-10) L 02/19/23 15:38 Total Protein 7.0 g/dL (6.6-8.7) 02/19/23 14:12 Albumin 4.2 g/dL (3.5-5.2) 02/19/23 14:12 Globulin 2.8 g/dL (1.3-4.6) 02/19/23 14:12 Blood Type O Positive 02/19/23 15:38 Rho(D) Type Positive 02/19/23 15:38 Antibody Screen Negative 02/19/23 15:38 Crossmatch See Detail 02/19/23 15:38 EKG Data EKG 1: I personally reviewed and interpreted this EKG as follows: Interpretation: Contemporaneous review of resting EKG reveals ventricular rate of 79 bpm. Consistent with an underlying atrial fibrillation with a controlled ventricular response. QRS duration, corrected QT interval and axis are all normal. Nonspecific ST-T wave changes noted but no acute ischemic changes noted at this time. EKG 2: I personally reviewed and interpreted this EKG as follows: Interpretation: Second EKG this visit revealed a ventricular rate of 74 bpm. Compared with previous tracing this same visit he apparently is in sinus rhythm with a first-degree AV block with a IN interval of 247 ms. QRS duration is normal corrected QT is normal. Axes are normal. Other than rhythm change no other changes from prior tracing this visit. Discharge Plan Discharge Patient Disposition: Xfer Short-Term Hosp Clinical Impression: Chest pain, Coronary artery disease, Anemia, GI bleed Condition: Stable Referrals: Zulema Manning APN [Primary Care Provider] - Coding Level of Care Code ED Mattress Filling Machine Tender for Malik Arboleda
[2023-02-19 14:19] LABS: Basophils % 0.4 %; Eosinophils # 0.2 10^3/uL (0.0-0.8); Eosinophils % 2.4 %; Hematocrit 25.3 % (42.0-52.0); Hemoglobin 6.9 g/dL (11.7-16.6); Lymphocytes # 1.5 10^3/uL (0.8-4.8); Lymphocytes % 17.5 %; Mean Corpuscular HGB Conc 27.3 g/dL (30.0-36.0); Mean Corpuscular Hemoglobin 18.4 pg (28.0-34.0); Mean Corpuscular Volume 67.5 fl (80-94); Mean Platelet Volume 9.2 fL (7.4-10.4); Monocytes # 0.8 10^3/uL (0.2-0.9); Monocytes % 9.8 %; Neutrophils # 5.87 10^3/uL (1.8-7.7); Neutrophils % 69.4 %; Nucleated Red Blood Cells % 0 %; Platelet Count 317 10^3/cmm (130-400); Red Blood Count 3.75 10^6/uL (4.1-5.3); Red Cell Distribution Width 16.3 % (12.1-15.1); White Blood Count 8.5 10^3/uL (4.0-10.0)
[2023-02-19 14:55] LABS: Alanine Aminotransferase 11 U/L (0-41); Albumin Level 4.2 g/dL (3.5-5.2); Alkaline Phosphatase 75 U/L (40-130); Anion Gap 13.3 (5-19); Aspartate Amino Transferase 16 U/L (0-40); Blood Urea Nitrogen 16 mg/dL (8-23); Calcium 8.6 mg/dL (8.5-10.5); Carbon Dioxide 25 mmol/L (22-29); Chloride 101 mmol/L (98-107); Creatinine Clr Calc Pharmacy 59.0597; Globulin 2.8 g/dL (1.3-4.6); Glucose 78 mg/dL (65-115); Osmolality Calculated 280 mOsm/kg (285-295); Potassium 4.3 mmol/L (3.5-5.1); Sodium 135 mmol/L (136-145); Total Bilirubin 0.3 mg/dL (0.15-1.2)
[2023-02-19 14:56] LABS: Troponin(5th) Baseline 23 ng/L (0-15)
--- NOTE | 2023-02-19 15:06 | PC.PHAR ---
pts daughter verified pts medications-pts daughter states the pt gets his eliquis threw the mail
--- NOTE | 2023-02-19 15:47 | ECG_ITS ---
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 Measurements Intervals [place] Rate: 74 P: 17 NV: 247 QRS: 29 QRSD: 94 T: 111 QT: 393 QTc: 436 Interpretive Statements SINUS RHYTHM WITH FIRST DEGREE AV BLOCK WITH FREQUENT VENTRICULAR PREMATURE COMPLEXES NONSPECIFIC ST & T-WAVE ABNORMALITY Compared to ECG 02/19/2023 13:32:25 Ventricular premature complex(es) now present First degree AV block now present Atrial fibrillation no longer present T-wave abnormality still present Electronically Signed On 02-19-2023 17:18:29 CDT by Parisa Harris M.D. [id number]
[2023-02-19 16:22] LABS: Troponin 5 2HR 22.23 ng/L (0-15)
[2023-02-19 16:24] LABS: Troponin 5 2HR Delta -0.77 ABS# (0-10)
--- NOTE | 2023-02-19 19:27 | ECG_ITS ---
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 Measurements Intervals [place] Rate: 77 P: 0 MS: 0 QRS: 40 QRSD: 100 T: 76 QT: 363 QTc: 411 Interpretive Statements Multifocal atrial rhythm with ABERRANT CONDUCTION OR VENTRICULAR PREMATURE COMPLEXES NONSPECIFIC ST & T-WAVE ABNORMALITY ABNORMAL RHYTHM ECG Compared to ECG 02/19/2023 15:47:35 Ventricular premature complex(es) now present Aberrant conduction of supraventricular beat(s) now present Sinus rhythm no longer present First degree AV block no longer present T-wave abnormality still present Electronically Signed On 02-22-2023 20:09:48 CDT by Yash Nava M.D. [id number]
[2023-02-19 20:45] LABS: Troponin 5 6HR 18.18 ng/L (0-15)
[2023-02-19 20:59] LABS: Troponin 5 6HR Delta -4.82 ng/L (0-12)
[2023-02-19] MEDS: diphenhydrAMINE 50 mg/mL SDV 1mL 12.5 MG IVP (23:22)
[2023-02-20] VITALS (9 sets, daily range): BP systolic 100–155; BP diastolic 70–91; PULSE 74–93; RESP 17–23; TEMP 36.7–36.8; O2SAT 96–98
[2023-02-20] MEDS: sodium chloride 0.9% 100 mL Bag 50 ML IV (02:18)
[2023-02-20 02:35] LABS: Basophils # 0.1 10^3/uL (0.0-0.1); Basophils % 0.6 %; Eosinophils # 0.2 10^3/uL (0.0-0.8); Eosinophils % 2.3 %; Hematocrit 28.6 % (42.0-52.0); Hemoglobin 8.5 g/dL (11.7-16.6); Lymphocytes # 1.9 10^3/uL (0.8-4.8); Lymphocytes % 20.9 %; Mean Corpuscular HGB Conc 29.7 g/dL (30.0-36.0); Mean Corpuscular Hemoglobin 20.8 pg (28.0-34.0); Mean Corpuscular Volume 70.1 fl (80-94); Mean Platelet Volume 9.2 fL (7.4-10.4); Monocytes % 11.2 %; Neutrophils # 5.86 10^3/uL (1.8-7.7); Neutrophils % 64.7 %; Nucleated Red Blood Cells % 0 %; Platelet Count 268 10^3/cmm (130-400); Red Blood Count 4.08 10^6/uL (4.1-5.3); Red Cell Distribution Width 18.2 % (12.1-15.1); White Blood Count 9.1 10^3/uL (4.0-10.0)
== END 2023-02-20 02:54 | disposition home or self-care (01) ==
PROVIDERS: Emergency Medicine; Emergency Provider Emergency Medicine; PCP Nurse Practitioner Family
DX: R07.9 Chest pain, unspecified (principal); I25.10 Atherosclerotic heart disease of native coronary artery without angina pectoris; D64.9 Anemia, unspecified; K92.2 Gastrointestinal hemorrhage, unspecified; Z95.1 Presence of aortocoronary bypass graft
CPT/HCPCS: 36430; 71045; 80053; 84484; 85025; 86850; 86900; 86920; 93005; 96374; 99285; J1200; P9016; P9040

== ENCOUNTER 2023-06-01 12:39 | Emergency (ER) | payer MEDICARE, OTHER, SELFPAY ==
[2023-06-01 12:46] VITALS: PULSE 99; RESP 17; TEMP 36.7; O2SAT 96
--- NOTE | 2023-06-01 13:12 | XR_ITS ---
WS: [id number] Left hand, 3 views, 06/01/2023 Clinical Data: injury Comparison: None. Findings: There is amputation of the ungual tuft of the distal phalanx of the left third finger. Degenerative c hange of the PIP and DIP joints of the left second through fifth fingers is seen. There is also degen erative change of the left first metacarpal base, first MCP joint and left first IP joint. There are small metal fragments adjacent to the left fifth metacarpal and left fifth PIP joint. Impression: 1. 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 2. 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
--- NOTE | 2023-06-01 13:12 | W.ED.EXTPRO ---
Documented by User: LEO Varner 06/01/23 14:22 HPI - Extremity Problem General: Chief complaint: Extremity Injury, Upper Stated complaint: left hand laceration Time Seen by Provider: 06/01/23 13:05 History of Present Illness: 88-year-old male patient comes in with injury to the left hand. Patient was using a planer saw this morning while working on some project and accidentally cut off the tip of his middle finger on his left hand. Patient also has a superficial abrasion to the distal ring finger on his left hand. Patient has good range of motion of the finger. Half the nail is shaved through. Tissues overlying the bone. Patient cannot recall his last tetanus. Patient has a history of coronary artery disease. Patient does take apixaban daily. Daughter is at bedside. Associated symptoms: Deny chest pain Review of Systems General: Reports: 10 or more systems reviewed and unremarkable except in HPI and below Card: Denies: chest pain Resp: Denies: dyspnea Musc: Reports: extremity pain and extremity swelling Skin/Breast: Reports: new lesions PFSH ED PFSH: Medical History (Updated 06/01/23 @ 14:55 by JAIRON Loya) Recurrent UTI BPH loc w urin obs/LUTS Surgical History H/O major abdominal surgery H/O colostomy H/O shoulder surgery H/O hernia repair Hx of CABG Family History Family/Other Cancer CAD (coronary artery disease) Diabetes Social History Smoking and tobacco/nicotine status: never used tobacco/nicotine Alcohol intake: never Substance/Drug Use: never Marital status: Physical Exam Const: COMMON NORMALS: alert HENMT: COMMON NORMALS: normocephalic HEAD & SCALP: normocephalic MOUTH: Normal oral and palatal mucosa present Neck/C-Spine: COMMON NORMALS: full ROM Resp: COMMON NORMALS: normal respiratory effort and clear to auscultation bilaterally AUSCULTATION: clear to auscultation bilaterally Cardio: COMMON NORMALS: regular rate RATE: regular rate Extremity: LEFT UPPER EXTREMITY: Yes hand & digits (Distal amputation middle finger left hand,) Left hand and digits: Yes inspection, Yes palpation, Yes ROM and Yes neurovascular exam Neuro: SENSORIUM/ORIENTATION: Yes alert Skin: TRAUMA: abrasion (Distal ring finger left hand) and laceration (Amputation finger distal middle left hand) Course Vital Signs: Vital signs: Vital Signs Temperature 98.0 F 06/01/23 12:46 Pulse Rate 99 06/01/23 12:46 Respiratory Rate 17 06/01/23 12:46 Pulse Oximetry 96 06/01/23 12:46 Oxygen Delivery Me thod Room Air 06/01/23 12:46 MDM - Extremity (Nontraumatic) Medical Decision Making Patient comes in for a injury to the left hand distal middle finger. On exam we note a amputation of his distal middle finger on the left hand. Range of motion is noted. Bleeding is controlled with pressure. Patient also has a superficial abrasion to the distal ring finger. No foreign body is noted. Suspected bone is involved on the distal middle finger. Differential diagnosis includes amputation, avulsion, foreign body. X-ray confirmed distal amputation of the middle finger. Reviewed exam with Dr. Lee who recommended contacting orthopedics office to talk to Dr. Cooney regarding follow-up appointment or further care. Talked with Julio Cooney PA-C, he agreed to see patient in the office today for further evaluation and treatment options. Wound was cleaned and Vaseline gauze was applied with light pressure dressing. Patient and family both reported understanding to follow-up with orthopedic surgeon. Patient was discharged for follow-up. XR interpretation done by ED provider, pending radiology final review Discharge Plan Discharge Patient Disposition: Home Clinical Impression: Avulsion of finger tip Qualifiers: Encounter type: initial encounter Qualified Code(s): S61.209A - Unspecified open wound of unspecified finger without damage to nail, initial encounter Condition: Stable Prescriptions: No Action finasteride 5 mg tablet 5 mg PO DAILY donepezil 10 mg tablet 10 mg PO BEDTIME aspirin [Aspir-81] 81 mg Tablet,Delayed Release (Dr/Ec) 81 mg PO DAILY simvastatin 40 mg tablet 40 mg PO QPM nitroglycerin [Nitrostat] 0.4 mg Tablet, Sublingual 0.4 mg SUBLINGUAL Q5M PRN (Reason: Chest Pain) Rx Instructions: do not exceed 3 doses per episode omeprazole 20 mg capsule,delayed release(DR/EC) 20 mg PO DAILY cholecalciferol (vitamin D3) [Vitamin D3] 25 mcg (1,000 unit) Capsule 25 mcg PO DAILY Eliquis 5 mg tablet 5 mg PO BID Discharge Orders: Discharge ED (Routine); Ordered 06/01/23 Ordered By: José Luis Mai Referrals: Zulema Manning APN [Primary Care Provider] - Bowen Cooney DO [Physician] - Julio Cooney PA [Physician Auto Specialty Services Manager] - Discharge Diet: Usual diet Activity Restrictions/Additional Instructions: Keep dressing intact. Report to orthopedic clinic for further evaluation and treatment. Coding Level of Care Code ED Tool Machine Setup Operator for Chg Fwd Documented by User: Arnold Lee DO 06/01/23 17:14 HPI - Extremity Problem General: Chief complaint: Extremity Injury, Upper Stated complaint: left hand laceration Time Seen by Provider: 06/01/23 13:05 PFSH ED PFSH: Medical History (Updated 06/01/23 @ 14:55 by JAIRON Loya) Recurrent UTI BPH loc w urin obs/LUTS Surgical History H/O major abdominal surgery H/O colostomy H/O shoulder surgery H/O hernia repair Hx of CABG Family History Family/Other Cancer CAD (coronary artery disease) Diabetes Social History Smoking and tobacco/nicotine status: never used tobacco/nicotine Alcohol intake: never Substance/Drug Use: never Marital status: Course Vital Signs: Vital signs: Vital Signs Temperature 98.0 F 06/01/23 12:46 Pulse Rate 99 06/01/23 12:46 Respiratory Rate 17 06/01/23 12:46 Pulse Oximetry 96 06/01/23 12:46 Oxygen Delivery Me thod Room Air 06/01/23 12:46 MDM - Extremity (Nontraumatic) Medical Decision Making Patient comes in for a injury to the left hand distal middle finger. On exam we note a amputation of his distal middle finger on the left hand. Range of motion is noted. Bleeding is controlled with pressure. Patient also has a superficial abrasion to the distal ring finger. No foreign body is noted. Suspected bone is involved on the distal middle finger. Differential diagnosis includes amputation, avulsion, foreign body. X-ray confirmed distal amputation of the middle finger. Reviewed exam with Dr. Lee who recommended contacting orthopedics office to talk to Dr. Cooney regarding follow-up appointment or further care. Talked with Julio Cooney PA-C, he agreed to see patient in the office today for further evaluation and treatment options. Wound was cleaned and Vaseline gauze was applied with light pressure dressing. Patient and family both reported understanding to follow-up with orthopedic surgeon. Patient was discharged for follow-up. Chart reviewed and patient discussed with midlevel. Agree with assessment and plan. Discharge Plan Discharge Patient Disposition: Home Clinical Impression: Avulsion of finger tip Qualifiers: Encounter type: initial encounter Qualified Code(s): S61.209A - Unspecified open wound of unspecified finger without damage to nail, initial encounter Condition: Stable Prescriptions: No Action finasteride 5 mg tablet 5 mg PO DAILY donepezil 10 mg tablet 10 mg PO BEDTIME aspirin [Aspir-81] 81 mg Tablet,Delayed Release (Dr/Ec) 81 mg PO DAILY simvastatin 40 mg tablet 40 mg PO QPM nitroglycerin [Nitrostat] 0.4 mg Tablet, Sublingual 0.4 mg SUBLINGUAL Q5M PRN (Reason: Chest Pain) Rx Instructions: do not exceed 3 doses per episode omeprazole 20 mg capsule,delayed release(DR/EC) 20 mg PO DAILY cholecalciferol (vitamin D3) [Vitamin D3] 25 mcg (1,000 unit) Capsule 25 mcg PO DAILY Eliquis 5 mg tablet 5 mg PO BID Discharge Orders: Discharge ED (Routine); Ordered 06/01/23 Ordered By: José Luis Mai Referrals: Zulema Manning APN [Primary Care Provider] - Bowen Cooney DO [Physician] - Julio Cooney PA [Physician Auto Specialty Services Manager] - Discharge Diet: Usual diet Activity Restrictions/Additional Instructions: Keep dressing intact. Report to orthopedic clinic for further evaluation and treatment. Coding Level of Care Code ED Tool Machine Setup Operator for Malik Arboleda
[2023-06-01] MEDS: ceFAZolin 2,000 MG in sodium chloride 0.9% (plus) 50 ML 100 MG IV (13:58)
[2023-06-01] MEDS: tetanus-dipt-pertussis 0.5 mL SDV IM (14:00)
== END 2023-06-01 14:27 | disposition home or self-care (01) ==
PROVIDERS: Emergency Provider Nurse Practitioner Family; PCP Nurse Practitioner Family
DX: W27.0XXA Contact with workbench tool, initial encounter (principal); S68.113A Complete traumatic metacarpophalangeal amputation of left middle finger, initial encounter; Z79.01 Long term (current) use of anticoagulants; Z79.82 Long term (current) use of aspirin; S60.415A Abrasion of left ring finger, initial encounter; Z95.1 Presence of aortocoronary bypass graft; Z23 Encounter for immunization
CPT/HCPCS: 73130; 90471; 90715; 96374; 99214; 99284; J0690

== ENCOUNTER 2023-06-02 12:05 | Day surgery (SDC) | payer MEDICARE, OTHER, SELFPAY ==
[2023-06-02] VITALS (9 sets, daily range): BP systolic 126–180; BP diastolic 72–86; PULSE 63–80; RESP 15–18; TEMP 36.1–36.4; O2SAT 16–100; BMI 29.9
[2023-06-02] MEDS: ketorolac 30 mg/mL INJ IVP (13:27)
[2023-06-02] MEDS: sodium chloride 0.9% 1,000 ML 30 ML IV (13:28)
[2023-06-02] MEDS: acetaminophen 1,000 MG/100 ML PIGGYBACK 400 MG IV (13:29)
--- NOTE | 2023-06-02 13:29 | PM.MISC ---
Miscellaneous Note Note: patient and family declining anesthesia, firmly desire local only
--- NOTE | 2023-06-02 13:38 | W.PM.OPSUD ---
Surgery/Procedure H&P Update DATE OF PROCEDURE: June 02, 2023 DATE H&P PERFORMED: 06/01/23 H&P UPDATE INFORMATION: I have reviewed H&P completed within last 30 days, I have examined patient prior to procedure and No changes to prior documentation PREOP DIAGNOSIS: Left middle finger traumatic fingertip amputation PRIMARY INDICATION FOR PROCEDURE: Left middle finger traumatic fingertip amputation PLANNED PROCEDURE: Operation Date: 06/02/23 14:00 Proposed Procedures p Debridement Upper Extremity And Irrigation/ Left middle finger irrigation and debridement with possible revised amputation(Left) - Bowen Cooney DO
[2023-06-02] MEDS: ceFAZolin 2,000 MG in sodium chloride 0.9% (plus) 50 ML 100 MG IV (14:19)
[2023-06-02] MEDS: ROPivacaine 0.5% SDV 30 mL 50 MG INJECTION (14:54)
[2023-06-02] MEDS: lidocaine 2% INJ 20 mL 10 ML INJECTION (14:54)
--- NOTE | 2023-06-02 15:39 | P.BOP_ITS ---
Date of Procedure: [June 02, 2023] Surgeon: [Dr. Eros PHAM] Asset Recovery Specialist(s): [Julio Cooney physician associate] Procedure(s) performed: [Left middle finger irrigation and debridement and revision amputation] Findings of the procedure(s): [Left middle finger traumatic fingertip amputation] Estimated blood loss: [5 ml] Specimen(s) removed: [n/a] Post-operative diagnosis: [Left middle finger traumatic fingertip amputation]
--- NOTE | 2023-06-02 16:48 | P.OP_ITS ---
Operative Report Date of procedure: June 02, 2023 Surgeon: Bowen Cooney DO Pump Assembler: Julio Cooney PA-C: JAIRON was necessary for assistance in this case with hand positioning to execute the procedure, retraction and protection of neurovascular structures as well as to assist with wound closure and dressing application. Procedure: Pre-op diagnosis: Left Middle finger traumatic amputation distal tip Post-op diagnosis: Same, with comminution distal phalanx, disruption of nail matrix Post-op findings: See operative report Procedure done: Left middle finger irrigation & debridement (2cm x 1cmx 0.5cm) skin subcutaneous tissue fat and bone Left middle finger revision amputation Specimens removed/disposition: Distal phalanx bony fragments excised as well as nonviablel skin Surgeon: Bowen Cooney DO Pump Assembler: Julio Cooney PA-C: FARZANA was necessary for assistance in this case with execution of the procedure with appropriate finger positioning as well as skin retraction as well as assistance in wound closure and dressing application Estimated blood loss (mL): 5 IV fluids: see nurse record Complications: None Findings: See operative report Condition: stable Disposition: same day Brief History: Patient presents to the office outpatient setting for workup of left middle finger traumatic amputation at the distal phalanx this is distal to the DIP joint as well as appears to be distal to the tendon insertions. Open wound noted with a volar oblique amputation and a prominent volar flap. We talked about treatment options at this point in time given the multiple fracture fragments and exposed bone will recommend a left middle finger irrigation debridement possible revision amputation we talked about this in detail patient pt is on blood thinners and discussing with family and pt they would like to have it primarily closed very healing by secondary intention. THey would like to just have a revision amputation with primary closure if possible. Talked about this and possible flap closures understanding risk of surgery she elects proceed all questions answered at this time is here today to proceed with a surgery today. Procedure: Patient seen evaluated preoperative holding area. Consent was reviewed and signed with patient correct extremity/digit was marked. Patient is evaluated by anesthesia once cleared for surgery pt was taken back to the operative suite pt was placed in The OR [facility] in Supine Position Armboard Applied to the left Upper Extremity Nonsterile Tourniquet Applied to the left Upper Arm. Patient elected for Local only Anesthesia. the Patient Was Prepped and Draped in Standard Orthopedic Fashion. Final Timeout Performed. Patient Received Appropriate Preoperative Antibiotics. Patient under Sterile Aseptic Technique Underwent a Digital Block. I Utilized a Sterile Turnicot at the Base of the Finger for Procedure. Finger turnicot was placed. I then began my evaluation of the traumatic amputation. Patient had a volar oblique nature that went directly through the nail matrix there was some remanent of the matrix noted. At this point in time in order to prevent a nail deformity complete matrix excision through sharp scalpel excision as well as electrocautery was used to burn any remanent of the germinal matrix. I then evaluated the bony fragments. All sharp loose devitalized bony fragments were excised I performed a standard irrigation debridement of all nonviable tissue of skin subcutaneous tissue fascia as well as bone. The size was roughly 2 cm x 1 cm x 0.5 cm at this point in time I removed the bony fragments of the remanent of the stump did have multiple sharp edges I utilized a rongeur as well as a rasp to contour this and as well as to shorten this below the soft tissue amputa tion to accommodate for possible closure primarily. I took this back to the bases of where the tendinous insertions were as well as to accommodate for DIP motion still. At this point in time I then thoroughly irrigated the wound bed. I performed traction neurectomies of the digital nerves distally as well as electrocautery with bipolar of the neurovascular structures distally. At this point in time patient had a volar flap that i brought up for primary closure. This flap coverage was contoured and had nice tension free closure with chromic suture. Finger turnicot was removed hemostasis satisfactory. I then placed simple interrupted chromic stitches to finalize closing the incision site. I then subsequently placed Xeroform 4 x 4's Curlex/soft roll and nima wrap. Patient was then subsequently taken to PACU in stable condition. Disposition: Patient taken back in stable condition recovering well. Patient will receive appropriate discharge instruction as well as pain medication postoperatively she will follow-up with me in the office in roughly 2 weeks for incision checkl. Patient understands agrees with current plan. Questions answered.
== END 2023-06-02 16:11 | disposition home or self-care (01) ==
PROVIDERS: PCP Nurse Practitioner Family; Visit Provider Student in an Organized Health Care Education/Training Program
PROC: (CPT 26951; principal; 2023-06-02 13:50)
DX: S68.123A Partial traumatic metacarpophalangeal amputation of left middle finger, initial encounter (principal); W27.0XXA Contact with workbench tool, initial encounter; Z79.82 Long term (current) use of aspirin; Z87.440 Personal history of urinary (tract) infections; N40.1 Benign prostatic hyperplasia with lower urinary tract symptoms; N13.8 Other obstructive and reflux uropathy
CPT/HCPCS: 26951; J0131; J0690; J1885; J2795; J7030

== ENCOUNTER → 2023-06-15 13:44 | Outpatient (BNVA) | payer MEDICARE, OTHER, SELFPAY | PROVIDERS: PCP Nurse Practitioner Family; Visit Provider Student in an Organized Health Care Education/Training Program | DX: S68.113A Complete traumatic metacarpophalangeal amputation of left middle finger, initial encounter; X58.XXXA Exposure to other specified factors, initial encounter | CPT/HCPCS: 99213 ==

== ENCOUNTER 2023-06-22 13:39 | Outpatient (RCR) | payer MEDICARE, OTHER, SELFPAY | END 2023-07-02 23:59 | disposition home or self-care (01) | LOC: SOT 13:39 | PROVIDERS: PCP Nurse Practitioner Family; Visit Provider Physician Assistant | DX: S68.623D Partial traumatic transphalangeal amputation of left middle finger, subsequent encounter (principal); X58.XXXD Exposure to other specified factors, subsequent encounter | CPT/HCPCS: 97110; 97165; 97530 ==

== ENCOUNTER → 2023-08-01 13:59 | Outpatient (BNVA) | payer MEDICARE, OTHER, SELFPAY | PROVIDERS: PCP Nurse Practitioner Family; Visit Provider Student in an Organized Health Care Education/Training Program | DX: S68.113A Complete traumatic metacarpophalangeal amputation of left middle finger, initial encounter; X58.XXXA Exposure to other specified factors, initial encounter | CPT/HCPCS: 99213 ==

== ENCOUNTER 2025-03-19 09:58 | Emergency (ER) | payer MEDICARE, OTHER, SELFPAY ==
[2025-03-19 10:00] VITALS: BP 160/78; PULSE 80; TEMP 36.6; O2SAT 97
--- NOTE | 2025-03-19 10:05 | ECG_ITS ---
[facility] Date: 2025-03-19 Pat Name: José Luis Castaneda Department: Room: Gender: Male Ram Car Operator: : 1935 Requested By: Paulo Merino Order Number: [id number] Henok MD: Yash Nava M.D. Measurements Intervals May Rate: 85 P: -18 NJ: 228 QRS: 42 QRSD: 98 T: 60 QT: 354 QTc: 422 Interpretive Statements SINUS RHYTHM WITH MARKED SINUS ARRHYTHMIA WITH FIRST DEGREE AV BLOCK POSSIBLE ANTERIOR MYOCARDIAL INFARCTION , PROBABLY OLD [30 ms Q WAVE IN V3/V4, OR R < 0.2 mV IN V4] INTERPRETATION BASED ON A DEFAULT AGE OF 40 YEARS Compared to ECG 02/19/2023 19:27:15 First degree AV block now present Myocardial infarct finding now present Aberrant conduction of supraventricular beat(s) no longer present T-wave abnormality no longer present Electronically Signed On 03-19-2025 13:42:28 CDT by Yash Nava M.D. [email or web address]
--- OUTSIDE RECORDS SUMMARY | 2025-03-19 10:05 | XMS_ITS | Encounter Summary ---
Author Organization [facility] Address [address] [place] [address] Care Team Providers Care Chain Saw Operator Name Role Phone Dez Tavarez MD Primary Care Provider [phone] Encounter Details Date Type Department Care Team (Latest Contact Info) Description 06/29/2005 Outpatient [facility] [address] [place] [phone] Dmitriy Patrick MD NO ADDRESS ON FILE SPINAL STENOSIS-LUMBAR (Primary Dx); Lumbosacral spondylosis; LUMBAGO; LUMB/LUMBOSAC DISC DEGEN Social History Tobacco Use Types Packs/Day Years Used Date Smoking Tobacco: Never Assessed Sex and Gender Information Value Date Recorded Sex Assigned at Not on file 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 Sex Male 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 Gender Identity Not on file Sexual Orientation Not on file documented as of this encounter Plan of Treatment Not on file documented as of this encounter Visit Diagnoses Diagnosis Spinal stenosis, lumbar region, without neurogenic claudication- Primary Lumbosacral spondylosis Lumbosacral spondylosis without myelopathy Lumbago Degeneration of lumbar or lumbosacral intervertebral disc documented in this encounter Care Teams Chain Saw Operator Relationship Specialty Start Date End Date Dez Tavarez MD [address] [place] [address] [place] [address] PCP - General Family Practice 08/03/12 documented as of this encounter
--- OUTSIDE RECORDS SUMMARY | 2025-03-19 10:05 | XMS_ITS | Encounter Summary ---
Author Organization [facility] Address [address] [place] [address] Care Team Providers Care Fruit Inspector Name Role Phone Dez Tavarez MD Primary Care Provider [phone] Encounter Details Date Type Department Care Team (Latest Contact Info) Description 06/29/[address] 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
--- OUTSIDE RECORDS SUMMARY | 2025-03-19 10:05 | XMS_ITS | Encounter Summary ---
Author Organization [facility] Address [address] [place] [address] Care Team Providers Care Front End Engineer Name Role Phone Dez Tavarez MD Primary Care Provider [phone] Encounter Details Date Type Department Care Team (Late st Contact Info) Description 10/17/2005 Outpatient Historical [facility] Orthopedics- 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
--- OUTSIDE RECORDS SUMMARY | 2025-03-19 10:05 | XMS_ITS | Encounter Summary ---
Author Organization [facility] Address [address] [facility] [place] [address] Care Team Providers Care Thread Dresser Name Role Phone Dez Tavarez MD Primary Care Provider [phone] Encounter Details Date Type Department Care Team (Late st Contact Info) Description 05/30/2005 Outpatient Historical [facility] Imaging Services 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
--- OUTSIDE RECORDS SUMMARY | 2025-03-19 10:05 | XMS_ITS | Encounter Summary ---
Author Organization [facility] Address [address] [place] [address] Care Team Providers Care System Support Administrator Name Role Phone Dez Tavarez MD Primary Care Provider [phone] Encounter Details Date Type Department Care Team (Late st Contact Info) Description 12/15/2006 Outpatient Historical [facility] Orthopedics- 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
--- OUTSIDE RECORDS SUMMARY | 2025-03-19 10:05 | XMS_ITS | Encounter Summary ---
Author Organization [facility] Address [address] [place] [address] Care Team Providers Care Tire Trimmer Hand Name Role Phone Dez Tavarez MD Primary Care Provider [phone] Encounter Details Date Type Department Care Team (Late st Contact Info) Description 07/22/2005 Outpatient Historical [facility] Dermatology- 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
--- OUTSIDE RECORDS SUMMARY | 2025-03-19 10:05 | XMS_ITS | Encounter Summary ---
Author Organization [facility] Address [address] [place] [address] Care Team Providers Care Fish Filleter Name Role Phone Dez Tavarez MD Primary Care Provider [phone] Encounter Details Date Type Department Care Team (Late st Contact Info) Description 12/31/1997 Outpatient Historical [facility] Imaging Services-[address] [place] [address] Clay Kaye MD [address] [place] [address] Sprain and strain of other specified sites of shoulder and upper arm (Primary Dx) Social History Tobacco Use Types Packs/Day Years Used Date Smoking Tobacco: Never Assessed Sex and Gender Information Value Date Recorded Sex Assigned at Not on file 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
--- OUTSIDE RECORDS SUMMARY | 2025-03-19 10:05 | XMS_ITS | Encounter Summary ---
Author Organization [facility] Address [address] [place] [address] Care Team Providers Care Beauty Sales Consultant Name Role Phone Dez Tavarez MD Primary Care Provider [phone] Encounter Details Date Type Department Care Team (Latest Contact Info) Description 10/23/2006 Outpatient Historical [facility] [address] [place] [address] Inocente Romo MD [address] [place] [address] Pre-Operative Cardiovascular Examination (Primary Dx) Social History Tobacco Use Types Packs/Day Years Used Date Smoking Tobacco: Never Assessed Sex and Gender Information Value Date Recorded Sex Assigned at Not on file 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 Gender Identity Not on file Sexual Orientation Not on file documented as of this encounter Plan of Treatment Not on file documented as of this encounter Procedures Procedure Name Priority Date/Time Associated Diagnosis Comments URINALYSIS MICROSCOPY ONLY Routine 10/23/2006 12:07 PM CDT URINALYSIS W/REFLEX MICROSCOPIC Routine 10/23/2006 12:07 PM CDT CBC WITHOUT DIFFERENTIAL Routine 10/23/2006 11:30 AM CDT documented in this encounter Results * URINALYSIS MICROSCOPY ONLY (10/23/2006 12:07 PM CDT) WBC URINE 0-2 0 - 2 INTERFACE SYSTEM RBC UA None Seen 0 - 2 INTERFACE SYSTEM HYALINE CAST None Seen 0 - 2 INTERFA CE SYSTEM BACTERIA UA None Seen None Seen INTERFAC E SYSTEM 10/23/2006 12:0 7 PM CDT Inocente Romo MD URINE ORDERABLES Edited Performing Organization Address [facility] de Phone Number INTERFACE SYSTEM Refer to clinic/hospital department * (ABNORMAL) URINALYSIS (10/23/2006 12:07 PM CDT) COLOR UA Yellow Straw INTERFACE SYSTEM CLARITY UA SL CLOUDY Clear INTERFACE SYSTEM LEUKOCYTE ESTERASE UA NEGATIVE NEGATIVE INTERFACE SYSTEM NITRITE UA NEGATIVE NEGATIVE INTERFACE SYSTEM PH UA 6.5 5.0 - 9.0 INTERFACE SYSTEM PROTEIN UA NEGATIVE NEGATIVE INTERFACE SYSTEM GLUCOSE UA NEGATIVE NEGATIVE INTERFACE SYSTEM KETONES UA NEGATIVE NEGATIVE INTERFACE SYSTEM UROBILINOGEN UA 0.2 0.2 INTE RFACE SYSTEM BILIRUBIN UA NEGATIVE NEGATIVE INTERFA CE SYSTEM BLOOD UA NEGATIVE NEGATIVE INTERFACE SYSTEM SPECIFIC GRAVITY UA 1.015 1.005 - 1.030 INTERFACE SYSTEM MICRO EXAM Yes(A) No INTERFACE SYSTEM 10/23/2006 12:0 7 PM CDT Inocente Romo MD URINE ORDERABLES Edited Performing Organization Address [facility] Phone Number INTERFACE SYSTEM Refer to clinic/hospital department * (ABNORMAL) CBC WITHOUT DIFFERENTIAL (10/23/2006 11:30 AM CDT) WBC 8.3 4.8 - 10.8 K/ul INTERFACE SYSTEM RBC 4.97 4.60 - 6.20 Mil/ul INTERFACE SYSTEM HEMOGLOBIN 15.2 14.0 - 18.0 g/dL INTERFACE SYSTEM HEMATOCRIT 44.1 41.0 - 53.0 % INTERFACE SYSTEM MCV 88.7 84.0 - 103.0 Fl INTERFACE SYSTEM MCH 30.6 27.0 - 34.0 pg INTERFACE SYSTEM MCHC 34.5 30.0 - 35.0 g/dL INTERFACE SYSTEM RDW 13.0 11.0 - 14.5 % INTERFACE SYSTEM PLATELETS 183 140 - 440 K/ul INTERFACE SYSTEM MPV 9.9 8.9 - 12.8 Fl INTERFACE SYSTEM NEUTROPHILS 59.2 42.2 - 75.2 % INTERFACE SYSTEM LYMPHOCYTES 25.5 24.0 - 44.0 % INTERFACE SYSTEM MONOCYTES 10.3(H) 2.0 - 10.0 % INTERFACE SYSTEM EOSINOPHILS 4.8 0.0 - 7.0 % INTERFACE SYSTEM BASOPHILS 0.2 0.0 - 1.0 % INTERFACE SYSTEM NEUTROPHIL ABSOLUTE 4.9 2.0 - 8.0 K/ul INTERFACE SYSTEM LYMPHOCYTE ABSOLUTE 2.1 1.2 - 4.0 K/ul INTERFACE SYSTEM MONOCYTE ABSOLUTE 0.9(H) 0.1 - 0.6 K/ul INTERFACE SYSTEM EOSINOPHIL ABSOLUTE 0.4 0.0 - 0.7 K/ul INTERFACE SYSTEM BASOPHILS ABSOLUTE 0.0 0.0 - 0.2 K/ul INTERFACE SYSTEM 10/23/2006 11:3 0 AM CDT us Inocente Romo MD HEMATOLOGY ORDERABLES E dited INTERFACE SYSTEM Refer to clinic/hospital department documented in this encounter Visit Diagnoses Diagnosis Pre-operative cardiovascular examination- Primary documented in this encounter Care Teams Beauty Sales Consultant Relationship Specialty Start Date End Date Dez Tavarez MD [address] [place] [address] [place] [address] PCP - General Family Practice 08/03/12 documented as of this encounter
--- OUTSIDE RECORDS SUMMARY | 2025-03-19 10:05 | XMS_ITS | Encounter Summary ---
Author Organization [facility] Address [address] [place] [address] Care Team Providers Care Inspector Precision Name Role Phone Dez Tavarez MD Primary Care Provider [phone] Encounter Details Date Type Department Care Team (Late st Contact Info) Description 11/03/2006 Outpatient Historical [facility] Orthopedics- 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
--- OUTSIDE RECORDS SUMMARY | 2025-03-19 10:05 | XMS_ITS | Encounter Summary ---
Author Organization [facility] Address [address] [place] [address] Care Team Providers Care Orthotic Aide Name Role Phone Dez Tavarez MD Primary Care Provider [phone] Encounter Details Date Type Department Care Team (Late st Contact Info) Description 11/15/2006 Outpatient Historical [facility] Orthopedics- 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
--- OUTSIDE RECORDS SUMMARY | 2025-03-19 10:05 | XMS_ITS | Encounter Summary ---
Author Organization [facility] Address [address] [place] [address] Care Team Providers Care Director Digital Name Role Phone Dez Tavarez MD Primary Care Provider [phone] Encounter Details Date Type Department Care Team (Latest Contact Info) Description 05/01/2002 Outpatient Historical [facility] Rheumatology- [place] 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
--- OUTSIDE RECORDS SUMMARY | 2025-03-19 10:05 | XMS_ITS | Encounter Summary ---
Author Organization [facility] Address [address] [place] [address] Care Team Providers Care Hypercil Core Transformer Assembler Name Role Phone Dez Tavarez MD Primary Care Provider [phone] Reason for Referral * Outpatient Services (Routine) - Closed Specialty Diagnoses / Procedures Referred By Juan alcocer Referred To Contact Diagnoses Chest pain Old ND (myocardial infarction) Procedures CL LT HEART CATHETERIZATION Julio Hernandez MD NO ADDRESS ON FILE Referral ID Status Reason Start Date Expiration Date Visits Re quested Visits Authorized [id number] Closed 04/01/2013 05/02/2014 1 1 Encounter Details Date Type Department Care Team (Latest Contact Info) Description 04/01/2013 Ancillary Orders [facility] Cardiac Main [place] [facility] [employer] [facility] [address] [place] [id number] Julio Hernandez MD NO ADDRESS ON FILE Chest pain (Primary Dx); Old ND (myocardial infarction) Social History Tobacco Use Types Packs/Day Years Used Date Smoking Tobacco: Never Smokeless Tobacco: Never Alcohol Use Standard Drinks/Week Comments No 0 (1 standard drink = 0.6 oz pur e alcohol) Sex and Gender Information Value Date Recorded Sex Assigned at Not on file Legal Sex Male 5:33 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 COORDINATOR Gender Identity Not on file Sexual Orientation Not on file Occupation Industry Job Start Date Job End Date Not on file Not on file Not on file Not on file documented as of this encounter Plan of Treatment Not on file documented as of this encounter Results * CL LT HEART CATHETERIZATION (04/02/2013 11:12 AM CDT) [facility] - 04/02/2013 11:23 AM CDT S: 1) Left main and 3-vessel coronary artery disease 2) Low-normal LV contractility, unchanged 3) Patent SVG to the LAD 4) Patent SVG to a ramus intermedius branch 5) Patent SVG to an obtuse marginal branch of the left posterior circumflex coronary artery 6) Patent SVG to the RCA 7) No new high-grade narrowings found when compared to the 08/15 cath RECOMMENDATIONS: 1) Ongoing medical therapy. His small non-STEMI 4 days ago may have been due to spasm or small-vessel disease. Julio Hernandez MD, [facility], [facility] - 04/02/2013 11:23 AM CDT CARDIAC CATHETERIZATION REPORT [place], [place] PATIENT: José Luis Castaneda PATIENT NUMBER: [id number] BIRTHDATE: 1935 REFERRING PHYSICIAN: Dez Tavarez MD DATE: 04/02/2013 TIME: 11:19 AM PROCEDURE: Left heart catheterization with coronary and saphenous vein graft angiography, left ventricular cineangiography, 6FR angioseal closure of the right common femoral artery INDICATION: Recent non-STEMI, CAD with prior CABG After carefully discussing potential benefits/ risks of and alternatives to cardiac catheterization and possible intervention at length with the patient, informed consent was obtained. The right groin was prepped and draped in the usual manner. Continuous blood pressure, ECG, and oxygen saturation monitoring were utilized. Carefully titrated conscious sedation was achieved. Following infiltration of 1% lidocaine local anesthetic, a 6 FR right femoral arterial sheath was inserted over a flexible guidewire using single wall technique. There were no apparent complications. CORONARY ANGIOGRAPHY: Coronary angiography, saphenous vein graft , and left internal mammary angiography was performed with 6-4 left and 6-4 right Napoleon and 6FR CLAY diagnostic catheters. The results were as follows: There is severe calcification of the coronary arteries. The left main coronary artery is 70% narrowed. The left anterior descending coronary artery is 90% narrowed proximally. The SVG to the LAD is widely patent. The distal LAD is small in caliber. The left posterior circumflex coronary artery is chronically occluded. An SVG to an obtuse marginal branch of the left posterior circumflex coronary artery is widely patent. A small ramus intermedius branch is 90% narrowed proximally. The SVG to this branch is widely patent. The right coronary artery is dominant and chronically occluded proximally. The SVG to the RCA is widely patent. His COLUNGA has been previously visualized and is not a graft. No collaterals are seen. LEFT VENTRICULAR CINEANGIOGRAPHY: LV cineangiography was performed with a 6 FR pigtail catheter in EDWARDS projection. 20 ml of contrast were used. The left ventricle is normal in size. All wall segments contract fairly well. Estimated left ventricular ejection fraction is 50%. No significant mitral insufficiency is noted. There is no significant gradient across the aortic valve. Procedure Note Julio Hernandez MD - 04/02/2013 CARDIAC CATHETERIZATION REPORT [place], [place] PATIENT: José Luis Castaneda PATIENT NUMBER: [id number] BIRTHDATE: 1935 REFERRING PHYSICIAN: Dez Tavarez MD DATE: 04/02/2013 TIME: 11:19 AM PROCEDURE: Left heart catheterization with coronary and saphenous veingraft angiography, left ventricular cineangiography, 6FR angioseal closureof the right common femoral artery INDICATION: Recent non-STEMI, CAD with prior CABG After carefully discussing potential benefits/ risks of and alternativesto cardiac catheterization and possible intervention at length with thepatient, informed consent was obtained. The right groin was prepped anddraped in the usual manner. Continuous blood pressure, ECG, and oxygensaturation monitoring were utilized. Carefully titrated conscious sedationwas achieved. Following infiltration of 1% lidocaine local anesthetic, a 6 FR rightfemoral arterial sheath was inserted over a flexible guidewire usingsingle wall technique. There were no apparent complications. CORONARY ANGIOGRAPHY: Coronary angiography, saphenous vein graft , andleft internal mammary angiography was performed with 6-4 left and 6-4right Napoleon and 6FR CLAY diagnostic catheters. The results were asfollows: There is severe calcification of the coronary arteries. The left main coronary artery is 70% narrowed. The left anterior descending coronary artery is 90% narrowed proximally.The SVG to the LAD is widely patent. The distal LAD is small in caliber. The left posterior circumflex coronary artery is chronically occluded. AnSVG to an obtuse marginal branch of the left posterior circumflex coronaryartery is widely patent. A small ramus intermedius branch is 90% narrowed proximally. The SVG tothis branch is widely patent. The right coronary artery is dominant and chronically occluded proximally.The SVG to the RCA is widely patent. His COLUNGA has been previously visualized and is not a graft. No collaterals are seen. LEFT VENTRICULAR CINEANGIOGRAPHY: LV cineangiography was performed witha 6 FR pigtail catheter in EDWARDS projection. 20 ml of contrast were used.The left ventricle is normal in size. All wall segments contract fairlywell. Estimated left ventricular ejection fraction is 50%. Nosignificant mitral insufficiency is noted. There is no significantgradient across the aortic valve. IMPRESSIONS: 1) Left main and 3-vessel coronary artery disease 2) Low-normal LV contractility, unchanged 3) Patent SVG to the LAD 4) Patent SVG to a ramus intermedius branch 5) Patent SVG to an obtuse marginal branch of the left posteriorcircumflex coronary artery 6) Patent SVG to the RCA 7) No new high-grade narrowings found when compared to the 08/15 cath RECOMMENDATIONS: 1) Ongoing medical therapy. His small non-STEMI 4 days ago may have beendue to spasm or small-vessel disease. Julio Hernandez MD, [facility], [facility] us Julio Hernandez MD FLUOROSCOPY ORDERABLES Final R esult [facility] documented in this encounter Visit Diagnoses Diagnosis Chest pain- Primary Chest pain, unspecified Old ND (myocardial infarction) Old myocardial infarction CAD (coronary artery disease)- Primary Coronary atherosclerosis of unspecified type of vessel, [place] or graft Old ND (myocardial infarction) Old myocardial infarction Chest pain Chest pain, unspecified documented in this encounter Care Teams Hypercil Core Transformer Assembler Relationship Specialty Start Date End Date Dez Tavarez MD [address] [place] [address] [place] [address] PCP - General Family Practice 08/03/12 documented as of this encounter
--- OUTSIDE RECORDS SUMMARY | 2025-03-19 10:05 | XMS_ITS | Encounter Summary ---
Author Organization [facility] Address [address] [place] [address] Care Team Providers Care Roofing Foreman Name Role Phone Dez Tavarez MD Primary Care Provider [phone] Encounter Details Date Type Department Care Team (Latest Contact Info) Description 10/05/2004 Outpatient Historical [facility] PreAdmission Center [address] [place] [address] [place] [address] Inocente Romo MD [address] [place] [address] PREOP CARDIOVASC EXAM (Primary Dx) Social History Tobacco Use Types Packs/Day Years Used Date Smoking Tobacco: Never Assessed Sex and Gender Information Value Date Recorded Sex Assigned at Not on file 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 Gender Identity Not on file Sexual Orientation Not on file documented as of this encounter Plan of Treatment Not on file documented as of this encounter Procedures Procedure Name Priority Date/Time Associated Diagnosis Comments URINALYSIS W/REFLEX MICROSCOPIC Routine 10/05/2004 10:15 AM CDT CBC WITH DIFFERENTIAL Routine 10/05/2004 9:54 AM CDT BASIC METABOLIC PANEL Routine 10/05/2004 9:54 AM CDT documented in this encounter Results * URINALYSIS (10/05/2004 10:15 AM CDT) COLOR UA Yellow Straw INTERFACE SYSTEM CLARITY UA Clear Clear INTERFACE SYSTEM LEUKOCYTE ESTERASE UA NEGATIVE NEGATIVE INTERFACE SYSTEM NITRITE UA NEGATIVE NEGATIVE INTERFACE SYSTEM PH UA 7.0 5.0 - 9.0 INTERFACE SYSTEM PROTEIN UA NEGATIVE NEGATIVE INTERFACE SYSTEM GLUCOSE UA NEGATIVE NEGATIVE INTERFACE SYSTEM KETONES UA NEGATIVE NEGATIVE INTERFACE SYSTEM UROBILINOGEN UA 1.0 INTE RFACE SYSTEM BILIRUBIN UA NEGATIVE NEGATIVE INTERFA CE SYSTEM BLOOD UA NEGATIVE NEGATIVE INTERFACE SYSTEM SPECIFIC GRAVITY UA 1.010 1.005 - 1.030 INTERFACE SYSTEM MICRO EXAM No No INTERFACE SYSTEM 10/05/2004 10:1 5 AM CDT Inocente Romo MD URINE ORDERABLES Final Result Performing Organization Address [facility] Phone Number INTERFACE SYSTEM Refer to clinic/hospital department * BASIC METABOLIC PANEL (10/05/2004 9:54 AM CDT) GLUCOSE 71 70 - 110 mg/dL INTERFACE SYSTEM BUN 19 9 - 20 mg/dL INTERFACE SYSTEM CREATININE 1.1 0.7 - 1.5 mg/dL (inactive) INTERFACE SYSTEM SODIUM 142 136 - 145 mEq/L INTERFACE SYSTEM POTASSIUM 4.6 3.5 - 5.0 mEq/L INTERFACE SYSTEM CHLORIDE 106 95 - 110 mEq/L INTERFACE SYSTEM CO2 29 22 - 32 mmol/l INTERFACE SYSTEM ANION GAP 12 9 - 20 mEq/L INTERFACE SYSTEM OSMOLALITY, CALCULATED 293 275 - 295 mOsm/Kg INTERFACE SYSTEM CALCIUM 8.8 8.4 - 10.5 mg/dL INTERFACE SYSTEM 10/05/2004 9:54 AM CDT Inocente Romo MD CHEMISTRY ORDERABLES Fi nal Result Performing Organization Address [facility] Phone Number INTERFACE SYSTEM Refer to clinic/hospital department * (ABNORMAL) CBC WITH DIFFERENTIAL (10/05/2004 9:54 AM CDT) WBC 6.0 4.8 - 10.8 K/ul INTERFACE SYSTEM RBC 4.62 4.60 - 6.20 Mil/ul INTERFACE SYSTEM HEMOGLOBIN 13.9(L) 14.0 - 18.0 g/dL INTERFACE SYSTEM HEMATOCRIT 41.9 41.0 - 53.0 % INTERFACE SYSTEM MCV 90.7 84.0 - 103.0 Fl INTERFACE SYSTEM MCH 30.1 27.0 - 34.0 pg INTERFACE SYSTEM MCHC 33.2 30.0 - 35.0 g/dL INTERFACE SYSTEM RDW 13.5 11.0 - 14.5 percent(in active) INTERFACE SYSTEM PLATELETS 227 140 - 440 K/ul INTERFACE SYSTEM MPV 9.5 8.9 - 12.8 Fl INTERFACE SYSTEM NEUTROPHILS 53.3 42.2 - 75.2 percent(in active) INTERFACE SYSTEM LYMPHOCYTES 23.2(L) 24.0 - 44.0 percent(in active) INTERFACE SYSTEM MONOCYTES 16.3(H) 2.0 - 10.0 percent(in active) INTERFACE SYSTEM EOSINOPHILS 6.5 0.0 - 7.0 % INTERFACE SYSTEM BASOPHILS 0.7 0.0 - 1.0 percent(in active) INTERFACE SYSTEM NEUTROPHIL ABSOLUTE 3.2 2.0 - 8.0 K/uL INTERFACE SYSTEM LYMPHOCYTE ABSOLUTE 1.4 1.2 - 4.0 K/ul INTERFACE SYSTEM MONOCYTE ABSOLUTE 1.0(H) 0.1 - 0.6 K/ul INTERFACE SYSTEM EOSINOPHIL ABSOLUTE 0.4 0.0 - 0.7 K/ul INTERFACE SYSTEM BASOPHILS ABSOLUTE 0.0 0.0 - 0.2 K/ul INTERFACE SYSTEM 10/05/2004 9:54 AM CDT us Inocente Romo MD HEMATOLOGY ORDERABLES F inal Result INTERFACE SYSTEM Refer to clinic/hospital department documented in this encounter Visit Diagnoses Diagnosis Pre-operative cardiovascular examination- Primary documented in this encounter Care Teams Roofing Foreman Relationship Specialty Start Date End Date Dez Tavarez MD [address] [place] [address] [place] [address] PCP - General Family Practice 08/03/12 documented as of this encounter
--- OUTSIDE RECORDS SUMMARY | 2025-03-19 10:05 | XMS_ITS | Encounter Summary ---
Author Organization [facility] Address [address] [place] [address] Care Team Providers Care Director Of Clinical Applications Name Role Phone Dez Tavarez MD Primary Care Provider [phone] Encounter Details Date Type Department Care Team (Late st Contact Info) Description 09/06/2006 Outpatient Historical [facility] Dermatology- [address] [place] 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
--- OUTSIDE RECORDS SUMMARY | 2025-03-19 10:05 | XMS_ITS | Encounter Summary ---
Author Organization [facility] Address [address] [place] [address] Care Team Providers Care Web Services Architect Name Role Phone Dez Tavarez MD Primary Care Provider [phone] Encounter Details Date Type Department Care Team (Late st Contact Info) Description 01/23/2013 Ancillary Orders [facility] Orthopedics- [address] [place] [address] [place] [address] Inocente Romo MD [address] [place] [address] Pain in joint, shoulder region (Primary Dx) Social History Tobacco Use Types Packs/Day Years Used Date Smoking Tobacco: Never Smokeless Tobacco: Never Alcohol Use Standard Drinks/Week Comments No 0 (1 standard drink = 0.6 oz pur e alcohol) Sex and Gender Information Value Date Recorded Sex Assigned at Not on file Legal Sex Male 5:33 AM SILK SPOTTER Gender Identity Not on file Sexual Orientation Not on file Occupation Industry Job Start Date Job End Date Not on file Not on file Not on file Not on file documented as of this encounter Plan of Treatment Not on file documented as of this encounter Results * XR SHOULDER 2+ VW RIGHT (01/23/2013 3:15 PM CDT) Anatomical Region Laterality Modality Upper Extremity Computed Radiogr aphy Narrative 01/25/2013 6:46 AM CDT Four views of the right shoulder including internal rotation, external rotation, scapular Y and axillary lateral x-rays reveal 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 There is no evidence of any loosening of the component. There is some evidence of glenoid wear with an inferior glenoid osteophyte. There is some narrowed acromiohumeral distance. There are no fractures or dislocations. Procedure Note Maxine Dang PA - 01/25/2013 Four views of the right shoulder including internal rotation, externalrotation, scapular Y and axillary lateral x-rays reveal hemiarthroplastycomponents in good position. There is no evidence of any loosening of thecomponent. There is some evidence of glenoid wear with an inferiorglenoid osteophyte. There is some narrowed acromiohumeral distance.There are no fractures or dislocations. us Inocente Romo MD DIAGNOSTIC IMAGING [facility] Final Result documented in this encounter Visit Diagnoses Diagnosis Pain in joint, shoulder region- Primary documented in this encounter Care Teams Web Services Architect Relationship Specialty Start Date End Date Dez Tavarez MD [address] [place] [address] [place] [address] PCP - General Family Practice 08/03/12 documented as of this encounter
--- OUTSIDE RECORDS SUMMARY | 2025-03-19 10:05 | XMS_ITS | Encounter Summary ---
Author Organization [facility] Address [address] [place] [address] Care Team Providers Care Binding Folder Machine Name Role Phone Dez Tavarez MD Primary Care Provider [phone] Encounter Details Date Type Department Care Team (Late st Contact Info) Description 05/30/2005 Outpatient Historical [facility] [place] [address] Social History Tobacco Use Types Packs/Day Years Used Date Smoking Tobacco: Never Assessed Sex and Gender Information Value Date Recorded Sex Assigned at Not on file Legal Sex Male 5:33 AM PRECISION MECHANICAL INSTRUMENT MAKER Gender Identity Not on file Sexual Orientation Not on file documented as of this encounter Plan of Treatment Not on file documented as of this encounter Visit Diagnoses Not on filedocumented in this encounter Care Teams Binding Folder Machine Relationship Specialty Start Date End Date Dez Tavarez MD [address] [place] [address] [place] [address] PCP - General Family Practice 08/03/12 documented as of this encounter
--- OUTSIDE RECORDS SUMMARY | 2025-03-19 10:05 | XMS_ITS | Encounter Summary ---
Author Organization [email or web address] [facility] Address [address] [place] [address] Care Team Providers Care Outboard System Operator Name Role Phone Dez Tavarez MD Primary Care Provider [phone] Encounter Details Date Type Department Care Team (Latest Contact Info) Description 04/03/2008 Outpatient Historical [facility] Hand Therapy [address] [place] [address] [place] [address] Jose Manuel Ugarte MD [address] [place] [address] Primary Localized Osteoarthrosis, Forearm Social History Tobacco Use Types Packs/Day Years Used Date Smoking Tobacco: Never Assessed Sex and Gender Information Value Date Recorded Sex Assigned at Not on file Legal Sex Male 5:33 AM NUT GRINDER Gender Identity Not on file Sexual Orientation Not on file documented as of this encounter Plan of Treatment Not on file documented as of this encounter Visit Diagnoses Diagnosis Primary localized osteoarthrosis, forearm documented in this encounter Care Teams Outboard System Operator Relationship Specialty Start Date End Date Dez Tavarez MD [address] [place] [address] [place] [address] PCP - General Family Practice 08/03/12 documented as of this encounter
--- OUTSIDE RECORDS SUMMARY | 2025-03-19 10:05 | XMS_ITS | Encounter Summary ---
Author Organization [facility] Address [address] [place] [address] Care Team Providers Care Household Worker Name Role Phone Dez Tavarez MD Primary Care Provider [phone] Encounter Details Date Type Department Care Team (Late st Contact Info) Description 03/23/2005 Outpatient Historical [facility] Orthopedics- [address] [place] [address] [place] [address] Inocente Romo MD [address] [place] [address] Knee joint replacement (Primary Dx) Social History Tobacco Use Types Packs/Day Years Used Date Smoking Tobacco: Never Assessed Sex and Gender Information Value Date Recorded Sex Assigned at Not on file Legal Sex Male 5:33 AM PUBLIC POLICY MANAGER Gender Identity Not on file Sexual Orientation Not on file documented as of this encounter Plan of Treatment Not on file documented as of this encounter Visit Diagnoses Diagnosis Knee joint replacement- Primary Knee joint replacement by other means documented in this encounter Care Teams Household Worker Relationship Specialty Start Date End Date Dez Tavarez MD [address] [place] [address] [place] [address] PCP - General Family Practice 08/03/12 documented as of this encounter
--- OUTSIDE RECORDS SUMMARY | 2025-03-19 10:05 | XMS_ITS | Clinical Summary ---
Author Organization [facility] Address [address] Attn: Epic Prelude ADT ANURAG INGRAM [address] Care Team Providers Care Waste Disposal Attendant Name Role Phone Unavailable Primary Care Provider Unavailabl e Allergies Active Allergy Reactions Criticality Noted Date Comments Ciprofloxacin Rash Low 07/21/2011 Sulfa (Sulfonamide Antibiotics) Rash Low 07/03 Medications omeprazole (PriLOSEC) 20 mg Capsule, Delayed Release(E.C.) Take 20 mg by mouth daily. Active finasteride (PROSCAR) 5 mg tablet Take 5 mg by mouth daily. Active simvastatin (ZOCOR) 40 mg tablet Take 40 mg by mouth daily with supper. Active aspirin (ECOTRIN EC) 81 mg Tablet, Delayed Release (E.C.) Take 81 mg by mouth daily. Active apixaban (ELIQUIS) 5 mg tablet Take 1 Tablet (5 mg) by mouth 2 times daily. 60 Tablet 11 3 Active donepeziL (ARICEPT) 10 mg tablet Take 10 mg by mouth daily at bedtime. 3 Active nitroglycerin (NITROSTAT) 0.4 mg Tablet, Sublingual Place 1 Tablet (0.4 mg) under tongue every 5 minutes as needed for Chest Pain. 25 Tablet 3 3 Active CHOLECALCIFEROL , VITAMIN D3, ORAL Take by mouth daily. Active ferrous sulfate 325 mg (65 mg iron) tablet Take 325 mg by mouth daily. Active metoprolol succinate (TOPROL XL) 25 mg Extended Release 24 hour tablet Take 1 Tablet (25 mg) by mouth daily. 100 Tablet 3 4 Active Additional Information Patient not taking.Reported on 02/18/2025 amoxicillin (AMOXIL) 500 mg capsule Take 4 Capsules (2,000 mg) by mouth one time as needed for Other (See Comment) (30 to 60 minutes prior to dental procedures). 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, psychotic disturbance, mood disturbance, or anxiety 05/16/2023 PAF (paroxysmal atrial fibrillation) 02/21/2023 Chronic anticoagulation 02/21/2023 History of CVA (cerebrovascular accident) 2022 Amaurosis fugax of left eye 06/14/2022 Acute alteration in mental status 06/14/2022 S/P TAVR (transcatheter aortic valve replacement ) 03/23/2022 Overview (03/23/2022): 03/22/22: 26 mm Gruebr-Shena Ultra bovine prosthesis 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 03/22/2022 Overview (03/22/2022): NYHA class III Stable angina 01/27/2022 Overview (01/27/2022): Added automatically from request for surgery [id number] SOB (shortness of breath) 01/27/2022 Overview (01/27/2022): Added automatically from request for surgery [id number] Osteoarthritis of right shoulder 12/07/2016 Acute postoperative pain of shoulder 12/05/2016 Severe aortic stenosis 10/10/2016 Non-rheumatic mitral regurgitation 10/10/2016 Anemia, unspecified 03/06/2013 Dyslipidemia 03/06/2013 Low HDL (under 40) 03/07/2012 Hx of CABG 03/07/2012 Old VT (myocardial infarction) 03/07/2012 HTN (hypertension) 09/07/2011 ASHD (arteriosclerotic heart disease) 09/07/2011 Resolved Problems Problem Noted Date Diagnosed Date Resolved Date Edema 09/07/2011 10/10/2017 Encounters Date Type Department Care Team Description 02/18/2025 2:45 PM CDT Office Visit [facility] Cardiology [facility] and [facility] [address] [place] [phone] Janice Kelly DO PAF (paroxysmal atrial fibrillation) (CMS/HCC) (Primary Dx); S/P TAVR (transcatheter aortic valve replacement); Non-rheumatic mitral regurgitation; Hx of CABG; ASHD (arteriosclerotic heart disease) from Last 3 Months Immunizations Immunization Administration Dates Next Due Influenza Vaccine Split 3+ Yrs PF IM 08/03/2012 Pneumococcal conjugate, unspecified formulation 04/02/2009 Family History Medical History Relation Name Comments Diabetes Father Heart Disease Father Relation Name Status Comments Father Mother Social History Tobacco Use Types Packs/Day Years Used Date Smoking Tobacco: Former Cigarettes Q uit: 07/03/1969 Smokeless Tobacco: Never Tobacco Cessation:Counseling Given: Not Answered Alcohol Use Standard Drinks/Week Comments No 0 (1 standard drink = 0.6 oz pur e alcohol) Sex and Gender Information Value Date Recorded Sex Assigned at Not on file Legal Sex Male 5:23 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 Gender Identity Not on file Sexual Orientation Not on file Last Filed Vital Signs Vital Sign Reading Time Taken Comments Blood Pressure 157/71 02/18/2025 2:40 PM CDT Pulse 89 02/18/2025 2:40 PM CDT Temperature 36.9 C (98.4 F) 11/12/2024 10:40 AM CDT Respiratory Rate 16 05/14/2024 11:31 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 Oxygen Saturation 96% 02/18/2025 2:40 PM CDT Inhaled Oxygen Concentration - - Weight 80.7 kg (178 lb) 02/18/2025 2:40 PM CDT Height 167.6 cm (5' 6 ) 02/18/2025 2:40 PM CDT Body Mass Index 28.73 02/18/2025 2:40 PM CDT Plan of Treatment Upcoming Encounters Date Type Department Care Team (Late st Contact Info) Description 05/13/2025 10:45 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 Appointment [facility] Neurology [facility] [address] [place] [address] Félix Mart MD [address] [place] [address] 02/17/2026 2:00 PM CDT Office Visit [facility] Cardiology [address] [place] and [facility] [address] [place] [address] Janice Kelly, [address] [place] [address] Health Maintenance Due Date Last Done Comments ZOSTER VACCINE (1 of 2) 01/07/1986 RSV VACCINE (60+ or ) (1 - 1-dose 75+ series) 01/07/2011 PNEUMOCOCCAL VACCINE 50+ YEA RS (2 of 2 - PPSV23, PCV20, or PCV21) 11/04/2014 09/09/2014, 04/02/2009 , 07/05/2001 INFLUENZA VACCINE (#1) 2025 , 04/12/2023, 05/03/2022, Additional history exists COVID-19 Vaccine ( - 2024-2 6 season) 2025 05/07/2021, 08/28/2020, 07/31/2020 DTAP/TDAP/TD VACCINES (3 - T d or Tdap) 06/01/2033 06/01/2023, 06/18/2013, 07/03/1997 Medical Devices Implanted Type Area Bandage Winding Machine Operator Device Identifier Shelf Expiration Date Model / Serial / Lot Closure Perclose Proglide [id number] - [id number] Implanted:Qty: 1 on 03/22/2022 at [facility] Closure Device Right: Groin HOOKS- VASC DEVICE 12/31/2023 [id number] / / Closure Perclose Proglide [id number] - [id number] Implanted:Qty: 1 on 03/22/2022 at [facility] Closure Device Right: Groin HOOKS- VASC DEVICE 12/31/2023 [id number] / / [id number] Dev Closure Angioseal 6fr Vip [id number] - [id number] Implanted:Qty: 1 on 03/22/2022 by Prudencio Martinez MD at [facility] Closure Device Left: Groin HOOKS [employer] 11/30/2022 [id number] / / [id number] Vlv Sapien3 Aortic 26mm Lp [id number] - [id number] Implanted:Qty: 1 on 03/22/2022 at [facility] Valve Left: Heart [employer] [id number] / [id number] / [place] [address] MEDICARE RAILROAD Advance Directives For more information, please contact: [phone] * Full Code (Latest Code Status on File) Date Activated Date Inactivated Comments 03/22/2022 5:58 AM 03/23/2022 8:07 PM * Full Code Date Activated Date Inactivated Comments 02/01/2022 11:28 AM 02/01/2022 6:12 PM * Full Code Date Activated Date Inactivated Comments 02/01/2022 8:03 AM 02/01/2022 11:27 AM
--- OUTSIDE RECORDS SUMMARY | 2025-03-19 10:05 | XMS_ITS | Encounter Summary ---
Author Organization [facility] Address [address] [place] [address] Care Team Providers Care Tribunal Member Name Role Phone Dez Tavarez MD Primary Care Provider [phone] Encounter Details Date Type Department Care Team (Late st Contact Info) Description 12/02/[address] [facility] Orthopedics- 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
--- OUTSIDE RECORDS SUMMARY | 2025-03-19 10:05 | XMS_ITS | Encounter Summary ---
Author Organization [facility] Address [address] [place] [address] Care Team Providers Care Cardiovascular Technologist Name Role Phone Dez Tavarez MD Primary Care Provider Encounter Details Date Type Department Care Team (Latest Contact Info) Description 11/03/2006 Outpatient Historical [facility] Cardiovascular Services [address] [place] [address] Inocente Romo MD [address] [place] [address] Pain in Soft Tissues of Limb (Primary Dx) Social History Tobacco Use Types Packs/Day Years Used Date Smoking Tobacco: Never Assessed Sex and Gender Information Value Date Recorded Sex Assigned at Not on file Legal Sex 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
--- OUTSIDE RECORDS SUMMARY | 2025-03-19 10:05 | XMS_ITS | Encounter Summary ---
Author Organization [facility] Address [address] [place] [address] Care Team Providers Care Shampooer Name Role Phone Dez Tavarez MD Primary Care Provider [phone] Encounter Details Date Type Department Care Team (Late st Contact Info) Description 07/12/2006 Outpatient Historical [facility] Orthopedics- [address] [place] [phone] Inocente Romo MD [address] [place] [phone] Shoulder Joint Replacement (Primary Dx); Primary Localized Osteoarthrosis, Lower Leg Social History Tobacco Use Types Packs/Day Years Used Date Smoking Tobacco: Never Assessed Sex and Gender Information Value Date Recorded Sex Assigned at Not on file Legal Sex Male 5:33 AM MANAGER LVN Gender Identity Not on file Sexual Orientation Not on file documented as of this encounter Plan of Treatment Not on file documented as of this encounter Visit Diagnoses Diagnosis Shoulder joint replacement- Primary Shoulder joint replacement by other means Primary localized osteoarthrosis, lower leg documented in this encounter Care Teams Shampooer Relationship Specialty Start Date End Date Dez Tavarez MD [address] [place] [address] [place] [address] PCP - General Family Practice 08/03/12 documented as of this encounter
--- OUTSIDE RECORDS SUMMARY | 2025-03-19 10:05 | XMS_ITS | Encounter Summary ---
Author Organization [facility] Address [address] [place] [address] Care Team Providers Care Front Office Coordinator Name Role Phone Dez Tavarez MD Primary Care Provider [phone] Encounter Details Date Type Department Care Team (Latest Contact Info) Description 06/15/2005 Outpatient [facility] [address] [place] [phone] Dmitriy Patrick MD NO ADDRESS ON FILE LUMB/LUMBOSAC DISC DEGEN (Primary Dx); LUMBAGO; Lumbosacral spondylosis; SPINAL STENOSIS-LUMBAR Social History Tobacco Use Types Packs/Day Years Used Date Smoking Tobacco: Never Assessed Sex and Gender Information Value Date Recorded Sex Assigned at Not on file 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 Gender Identity Not on file Sexual Orientation Not on file documented as of this encounter Plan of Treatment Not on file documented as of this encounter Visit Diagnoses Diagnosis Degeneration of lumbar or lumbosacral intervertebral disc- Primary Lumbago Lumbosacral spondylosis Lumbosacral spondylosis without myelopathy Spinal stenosis, lumbar region, without neurogenic claudication documented in this encounter Care Teams Front Office Coordinator Relationship Specialty Start Date End Date Dez Tavarez MD [address] [place] [address] [place] [address] PCP - General Family Practice 08/03/12 documented as of this encounter
--- OUTSIDE RECORDS SUMMARY | 2025-03-19 10:05 | XMS_ITS | Patient Health Record ---
Author Organization [facility] Address [address] [place] [address] Care Team Providers Care Poultry Dressing Worker Name Role Phone Zulema Manning Primary Care Provider ZULEMA MANNING Unavailable Unavailable Allergies No Known Allergies Results Component Value Reference Range Flag Notes CBC w\ Auto Diff [id number] Reviewed date:04/30/2024 12:40:29 PM Interpretation: Performing Lab: Notes/Report: Diagnosis Description: Dizziness and giddiness WBC 10.0 4.5-11.0 X10'3 RBC 4.37 4.50-5.90 X10'6 LOW Hgb 11.5 13.5-17.5 G/DL LOW Hct 37.3 41.0-53.0 % LOW MCV 85.4 80.0-100.0 FL MCH 26.3 27.0-31.0 PG LOW MCHC 30.8 31.0-37.0 G/DL LOW Platelet 361 150-400 X10'3 RDW-SD 46.6 35.0-49.0 FL RDW-CV 14.9 12.2-15.6 % MPV 9.7 9.2-12.0 FL Neutro Auto% 74.7 40.0-70.0 % HI Lymph Auto% 12.3 22.0-44.0 % LOW Hardee Auto% 10.6 3.0-7.0 % HI Eos Auto% 1.5 2.0-4.0 % LOW Baso Auto% 0.4 0.0-1.0 % Imm Gran% .5 .0-.4 % HI Neutro Abs 7.46 .80-7.70 Absolute Neutrophil Count 7460 NA Lymph Abs 1.23 .10-4.10 Hardee Abs 1.06 .20-1.00 HI Eos Abs .15 .00-.40 Baso Abs .04 .00-.20 Imm Gran Abs .05 .00-.10 NRBC# .00 .00-.20 NRBC% .00 .00-.20 /100 int act WBC's Comprehensive Metabolic Pane l (CMP) [id number] Reviewed date:04/30/2024 03:11:20 PM Interpretation: Performing Lab: Notes/Report: Diagnosis Description: Dizziness and giddiness Glucose Serum 66 71-110 MG/DL LOW Testing p erformed at [facility], [address] [place] [address] [place] [address]. CLIA ID#: [id number] BUN 15 7-21 MG/DL Creat .88 .57-1.17 MG/DL Use of this assay is not recommended for patients undergoing treatment with phenindione, due to the potential for falsely depressed results. J-wyxxss-p-benzoquinone imine (NAPQI) is a metabolite of acetaminophen, NAPQI concentrations of apparoximately 10 mg/L correlation to toxic levels of acetaminophen demonstrates a greater than or equil to 10% change in results. NAPQI concentrations greater than this may lead to falsely depressed results for patient samples. GFR 82.6 NA Calculation pe rformed from GFR calculator provided by the National [employer]. Glomerular Filtration rate(GRF) is the best overall index of kidney function. Normal GFR varies according to age,sex, body size, and declines with age. The National Kidney Foundation recommends using the CKD-EPI Creatinine Equation(2020) to estimate GFR. BUN/Creat Ratio 17.0 12.0-20.0 % Total Protein 6.1 5.8-8.0 G/DL Albumin 3.6 3.2-4.8 G/DL Globulin 2.4 2.3-3.5 G/DL Alb/Glob 1.5 0.8-2.2 Calcium 8.9 8.7-10.4 MG/DL Sodium 141 136-145 MMOL/L Potassium 4.7 3.5-5.1 MMOL/L Chloride 107 98-107 MMOL/L CO2 29.4 20.0-31.0 MMOL/L Anion Gap 9 5-15 Alk Phos 102 46-116 Bili Total .3 .3-1.2 MG/DL Use of this assay is not recommended for patients undergoing treatment with eltrombopag due to the potential for falsely elevated results. AST/SGOT 20 15-37 UNIT/L ALT/SGPT 14 12-78 UNIT/L Osmo Serum,Calculated 291 280-300 MOSM/KG Influenza A/B PCR-- [id number] Reviewed date:04/29/2024 04:05:51 PM Interpretation: Performing Lab: Notes/Report: Influenza B PCR negative Influenza A PCR [place] A [id number] Reviewed date:04/29/2024 04:05:19 PM Interpretation: Performing Lab: Notes/Report: Strep Screen A negative COVID 19 PCR--[id number] Reviewed date:04/29/2024 04:06:09 PM Interpretation: Performing Lab: Notes/Report: COVID 19 PCR negative Urinalysis--[id number] Reviewed date:04/29/2024 04:06:47 PM Interpretation: Performing Lab: Notes/Report: Specific gravity UA 1.020 Urine Nitrite negative Color UA yellow Urine Blood negative Clarity UA clear Urine pH 6.0 Urine Glucose negative Urine Leukocyte negative Urine Protein negative Urine Bilirubin negative Urine Ketone negative Urobilinogen negative Reason For Referral Reason Dizziness Diagnosis 1 Dizziness (R42) Referral Organization [facility] Referring Provider First Name Zulema Referring Provider Last Name Nigel Referring Provider Speciality Nurse Prac titioner Referred Provider Specialty Physical The rapist General Notes Gerri Elam 05/09 02:25:02 PM >faxed to [facility] Referral Priority Routine Referral Appointment Date 05/17/2024 Medications Medication SIG (Take, Route, Frequency, Duration) Notes Start Date End Date Status Aspirin 81 81 MG Tablet Delayed Release Oral 09/10/2019 Active Finasteride 5 MG Tablet Take 1 tablet by mouth once daily; Duration: 30 Active Aspirin 81 MG Tablet Delayed Release 1 tablet Orally Once a day Active Fluticasone Propionate 50 MCG/ACT Suspension 2 spray in each nostril Nasally Once a day; Duration: 30 day(s) 07/12/2022 Active Simvastatin 40 MG Tablet TAKE 1 TABLET B Y MOUTH ONCE DAILY IN THE EVENING; Duration: 90 Active Omeprazole 20 MG Capsule Delayed Release Take 1 capsule by mouth once daily; Duration: 90 Active hydroCHLOROthiazide 25 MG Tablet Oral 09/10/2019 Active Metoprolol Tartrate 25 MG Tablet Oral 09/10/2019 Active Omeprazole Magnesium 20 MG Tablet Delayed Release Oral 09/10/2019 Activ e Eliquis 5 MG Tablet 1 tablet Orally Twice a day Not-Taking Donepezil HCl 10 MG Tablet TAKE 1 TABLET BY MOUTH ONCE DAILY AT BEDTIME; Duration: 30 days Active Potassium Chloride ER 10 mEq Tablet Extended Release TAKE ONE TABLET BY MOUTH TWICE DAILY WITH FOOD; Duration: 30 Not-Taking Clopidogrel Bisulfate 75 MG Tablet 1 tablet Orally Once a day Not-Taking Immunizations Vaccine Route Administration Date Status Comme nts Flucelvax Trivalent, Syringe 0.5 mL, PF Unknown 04/29/2024 Refused Influenza (split), seasonal, intradermal, preservative free Unknown 10/21/2021 Refused Prevnar 20 IM Intramuscular 06/07/2023 Administered [facility]-00 005-2000-0 1 Patient tolerated well. Social History Tobacco Use: Social History Observation Description Date Details (start date - stop date) Former Smoker NA - NA Social History Depression Screening Social Info Question Answer Notes PHQ-9 Little interest or pleasure in doing thin gs Not at all Feeling down, depressed, or hopeless Not at all Trouble falling or staying asleep, or sleeping t oo much Not at all Feeling tired or having little energy Not at all Poor appetite or overeating Not at all Feeling bad about yourself, or that you are a failure, or have let yourself or your family down Not at all Trouble concentrating on thi ngs, such as reading the newspaper or watching television Not at all Moving or speaking so slowly that other people could have noticed. Or the opposite ? being so fidgety or restless that you have been moving around a lot more than usual Not at all Thoughts that you would be b irving off , or of hurting yourself in some way Not at all Total Score 0 Drugs/Alcohol: Social Info Question Answer Notes Alcohol Screen (Audit-C) Did you have a drink containing alcohol in the past year? No Points 0 Interpretation Negative Comprehensive Health Assessm ent Social Info Question Answer Notes *Social Determinants of Health Has lack of transportation kept you from medical appointments, meetings, work or from getting things needed for daily living? No Do you feel physically and emotionally safe wher e you currently live? Yes Are you worried about losing your housing? No Recently, have you worried t hat your food would run out before you got money to buy more? No Drug/Alcohol: Social Info Question Answer Notes AUDIT-C (Standard) Did you have a drink containing alcohol in the past year? No Tobacco Use: Social Info Question Answer Notes Tobacco Control (Standard) Tobacco use: Former smoker How long has it been since you last smoked? Greater than 10 years Additional Details Category Social Info Options Details Migrated Social History Migrated Social History Smoking Status : Former tobacco user , History of tobacco use : Section Notes: 10/14/20 10/14/20 10/14/20 11/02/21 10/14/20 11/02/21 10/14/20 11/02/21 10/14/20 11/02/21 10/14/20 11/02/21 10/14/20 11/02/21 12-28-22 PHQ9 10/14/20 11/02/21 12-28-22 PHQ9 10/14/20 11/02/21 12-28-22 PHQ9 10/14/20 11/02/21 12-28-22 PHQ9 10/14/20 11/02/21 12-28-22 PHQ9 10/14/20 11/02/21 12-28-22 PHQ9 10/14/20 11/02/21 12-28-22 PHQ9 10/14/20 11/02/21 12-28-22 PHQ9 10/14/20 11/02/21 12-28-22 PHQ9 10/14/20 11/02/21 12-28-22 PHQ9 10/14/20 11/02/21 12-28-22 PHQ9 10/14/20 11/02/21 12-28-22 PHQ9 10/14/20 11/02/21 12-28-22 PHQ9 10/14/20 11/02/21 12-28-22 PHQ9 10/14/20 11/02/21 12-28-22 PHQ9 10/14/20 11/02/21 12-28-22 PHQ9 10/14/20/09/2112-28-22 PHQ9 10/14/20/09/2112-28-22 PHQ9 10/14/20/09/2112-28-22 PHQ9 10/14/20 512-28-22 PHQ9 10/14/20 11/02/21 12-28-22 PHQ9 10/14/20/09/2112-28-22 PHQ9 10/14/20 5/09/2112-28-22 PHQ9 10/14/20 5/09/2112-28-22 PHQ9 06/18/24 PHQ9 10/14/20 5/09/2112-28-22 PHQ9 06/18/24 PHQ9 10/14/20 5/09/2112-28-22 PHQ9 06/18/24 PHQ9 10/14/20 5/09/2112-28-22 PHQ9 06/18/24 PHQ9 10/14/20/09/2112-28-22 PHQ9 06/18/24 PHQ9 10/14/20 5/09/2112-28-22 PHQ9 06/18/24 PHQ9 10/14/20 5/09/2112-28-22 PHQ9 06/18/24 PHQ9 10/14/20 5/09/2112-28-22 PHQ9 06/18/24 PHQ9 10/14/20 512-28-22 PHQ9 10/14/20 11/02/21 12-28-22 PHQ9 10/14/20 11/02/21 12-28-22 PHQ9 10/14/20 11/02/21 12-28-22 PHQ9 10/14/20 11/02/21 10/14/20 Problems Problem Type SNOMED Code ICD Code Onset Dates Problem Status W/U Status Risk Notes Problem Mixed hyperlipidemia (372322548) Mixed hyperlipidemia (E78.2) Active confirmed Problem 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, 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) Active confirmed Problem Gastroesophageal reflux disease (093365778) GERD without esophagitis (K21.9) Active confirmed Problem Essential hypertension (70050293) Hypertension, unspecified type (I10) Active confirmed Problem Localized, primary osteoarthritis of the hand (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) Arthritis of hand (M19.049) Active confirmed Problem Rhinitis (59384119) Rhinitis (J31.0) Active con firmed Problem Amputation of finger (48551341) Amputation finger (S68.119A) Active confirmed Problem Amnesia (60888183) Memory change s (R41.3) Active confirmed Problem Environmental allergy (331887315) Environmental allergies (Z91.09) Active confirmed Problem Mild dementia (836999142516658) 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) Active confirmed Problem Benign prostatic hypertrophy without outflow obstruction (120851858) BPH without obstruction/lower urinary tract symptoms (N40.0) Active confirmed Vital Signs Heart Rate 83 /min 06/18/2024 Temperature 97.1 degrees Fahrenheit 06/18/2024 Respiratory Rate 20 /min 06/18/2024 Blood pressure diastolic 70 mm Hg 07/10/2024 Oximetry 99 % 06/18/2024 Height-cm 167.64 cm 07/10/2024 Weight-kg 76.2 kg 06/18/2024 Height 66 in 07/10/2024 Blood pressure systolic 120 mm Hg 07/10/2024 Weight 168 lbs 06/18/2024 BMI 27.11 kg/m2 06/18/2024 Encounters Encounter Location Date Provider Diagnosis [facility] [address] [place] [address] 03/20/2024 Zulema Manning Dizziness R42 and Environmental allergies Z91.09 [facility] [address] [place] [address] 04/29/2024 Zulema Manning Dizziness R42 ; Body aches R52 ; Encounter for immunization Z23 and Immunization not carried out because of patient refusal Z28.21 [facility] [address] [place] [address], [place] [address] 06/18/2024 Zulema Manning Hypertension, unspecified type I10 ; Encounter for Medicare annual wellness exam Z00.00 ; Mixed hyperlipidemia E78.2 and Mild dementia F03.90 [facility] [place] 02/03/2025 Zulemaharinder Manning Mixed hyperlipi demia E78.2 and Hypertension, unspecified type I10 [facility] [place] 03/05/2025 Zulemaharinder Manning [facility] [address] [place] [address] 03/26/2024 Zulema Batterton Environmental allergies Z91.09 [facility] [address] [place] [address] 03/27/2024 Zulema Batterton Hypertension, unspecified type I10 and Mixed hyperlipidemia E78.2 [facility] [address] [place] [address] 04/26/2024 Zulema Batterton Hypertension, unspecified type I10 and Mixed hyperlipidemia E78.[address] [place] [address] 05/09/2024 Zulema Batterton Dizziness R42 [facility] [address] [place] [address] 05/17/2024 Zulema Batterton Hypertension, unspecified type I10 and Mixed hyperlipidemia E78.2 [facility] [address] [place] [address] 06/12/2024 Zulema Batterton Mixed hyperlipidemia E78.2 and Hypertension, unspecified type I10 [facility] [place] 07/10/2024 Zulema Batterton Hypertension, unspecified type I10 and Mixed hyperlipidemia E78.2 [facility] [place] 08/09/2024 Zulema Batterton Hypertension, unspecified type I10 and BPH without obstruction/lower urinary tract symptoms N40.0 [facility] [place] 09/17/2024 Zulema Batterton Mild dementia F 03.90 and Hypertension, unspecified type I10 [facility] [place] 10/23/2024 Zulema Batterton Hypertension, unspecified type I10 and BPH without obstruction/lower urinary tract symptoms N40.0 [facility] [place] 11/18/2024 Zulema Batterton Hypertension, unspecified type I10 and BPH without obstruction/lower urinary tract symptoms N40.0 [facility] [place] 12/16/2024 Zulema Batterton Hypertension, unspecified type I10 and BPH without obstruction/lower urinary tract symptoms N40.0 [facility] [place] 12/31/2024 Zulema Batterton Hypertension, unspecified type I10 and Mixed hyperlipidemia E78.2 [facility] [place] 02/03/2025 Zulema Batterton Hypertension, unspecified type I10 and BPH without obstruction/lower urinary tract symptoms N40.0 Assessments Encounter Date Diagnosis (ICD Code) Assessment Notes Treatment Notes Treatment Clinical Notes Section Notes 03/20/2024 Dizziness (ICD-10 - R42) RTC Monday if not improving with treatment. 03/20/2024 Environmental allergies (ICD-10 - Z91.09) 03/26/2024 Environmental allergies (ICD-10 - Z91.09) 03/27/2024 Hypertension, unspecified type (ICD-10 - I10) Learning About High Blood Pressure material was published 04/26/2024 Hypertension, unspecified type (ICD-10 - I10) 04/29/2024 Dizziness (ICD-10 - R42) Will draw labs today. Discussed with pt and daughter referral to PT for eval and treat for recurrent dizziness, they will discuss further and let us know. 04/29/2024 Body aches (ICD-10 - R52) 05/09/2024 Dizziness (ICD-10 - R42) 05/17/2024 Hypertension, unspecified type (ICD-10 - I10) 06/12/2024 Mixed hyperlipidemia (ICD-10 - E78.2) 06/18/2024 Hypertension, unspecified type (ICD-10 - I10) Stable 06/18/2024 Encounter for Medicare annual wellness exam (ICD-10 - Z00.00) Return in one year for your annual wellness visit. 07/10/2024 Hypertension, unspecified type (ICD-10 - I10) 08/09/2024 Hypertension, unspecified type (ICD-10 - I10) 09/17/2024 Mild dementia (ICD-10 - F03.90) Dementia: Care Instructions material was published 10/23/2024 Hypertension, unspecified type (ICD-10 - I10) 11/18/2024 Hypertension, unspecified type (ICD-10 - I10) 12/16/2024 Hypertension, unspecified type (ICD-10 - I10) High Blood Pressure: Care Instructions material was published 12/31/2024 Hypertension, unspecified type (ICD-10 - I10) 02/03/2025 Mixed hyperlipidemia (ICD-10 - E78.2) 02/03/2025 Hypertension, unspecified type (ICD-10 - I10) 02/03/2025 BPH without obstruction/lower urinary tract symptoms (ICD-10 - N40.0) 02/03/2025 Hypertension, unspecified type (ICD-10 - I10) 12/31/2024 Mixed hyperlipidemia (ICD-10 - E78.2) 12/16/2024 BPH without obstruction/lower urinary tract symptoms (ICD-10 - N40.0) Benign Prostatic Hyperplasia: Care Instructions material was published 11/18/2024 BPH without obstruction/lower urinary tract symptoms (ICD-10 - N40.0) 10/23/2024 BPH without obstruction/lower urinary tract symptoms (ICD-10 - N40.0) 09/17/2024 Hypertension, unspecified type (ICD-10 - I10) 08/09/2024 BPH without obstruction/lower urinary tract symptoms (ICD-10 - N40.0) 07/10/2024 Mixed hyperlipidemia (ICD-10 - E78.2) 06/18/2024 Mixed hyperlipidemia (ICD-10 - E78.2) Stable 06/12/2024 Hypertension, unspecified type (ICD-10 - I10) 05/17/2024 Mixed hyperlipidemia (ICD-10 - E78.2) 04/29/2024 Encounter for immunization (ICD-10 - Z23) 04/26/2024 Mixed hyperlipidemia (ICD-10 - E78.2) 03/27/2024 Mixed hyperlipidemia (ICD-10 - E78.2) Learning About High Cholesterol material was published 04/29/2024 Immunization not carried out because of patient refusal (ICD-10 - Z28.21) 06/18/2024 Mild dementia (ICD-10 - F03.90) Stable 04/29/2024 Other Venipuncture performed. Right arm. One attempt. Pt tolerated well, bleeding controlled with light dressing.Gerri Elam PRESIDENT AND CHIEF EXECUTIVE OFFICER Plan Of Treatment No Information Insurance Providers Payer Name Payer Address Payer Phone Subscriber Number Group Number Insured Name Patient Relationship to Insured Coverage Start Date Coverage End Date [place] Medicare [address] [phone] [id number] José Luis Castaneda Self - patient is the insured [employer] [address] [address] [place] [phone] [id number] José Luis Castaneda Self - patient is the insured Medications Administered Medication Instructions Date of Administration Dosage Notes Ketorolac Tromethamine 02/26/[address] [facility] [address] [id number] Patient tolerated well. Rocephin 06/07/2023 1 g [id number] Patient tolerated well. Medical (General) History Medical History History ICD Code hypertension GERD hyperlipidemia Surgical History Surgery Date(Month/Year) bilateral knee replacement bilateral shoulder replacement heart surgery valve replacement colostomy and reversal hernia repair Hospitalization History Reason Date(Month/Year) see surgery
--- OUTSIDE RECORDS SUMMARY | 2025-03-19 10:05 | XMS_ITS | Encounter Summary ---
Author Organization [facility] Address [address] [place] [address] Care Team Providers Care High [employer] Learning Support Teacher Name Role Phone Dez Tavarez MD Primary Care Provider [phone] Encounter Details Date Type Department Care Team (Late st Contact Info) Description 07/28/2003 Inpatient Historical [facility] Inocente Romo MD [address] [place] [phone] LOC OSTEOARTH NOS-SHLDER (Primary Dx) Social History Tobacco Use Types Packs/Day Years Used Date Smoking Tobacco: Never Assessed Sex and Gender Information Value Date Recorded Sex Assigned at Not on file Legal Sex Male 5:33 AM RN ACUTE DIALYSIS Gender Identity Not on file Sexual Orientation Not on file documented as of this encounter Plan of Treatment Not on file documented as of this encounter Visit Diagnoses Diagnosis Localized osteoarthrosis not specified whether primary or secondary, shoulder region- Primary documented in this encounter Care Teams High [employer] Learning Support Teacher Relationship Specialty Start Date End Date Dez Tavarez MD [address] [place] [address] [place] [address] PCP - General Family Practice 08/03/12 documented as of this encounter
--- OUTSIDE RECORDS SUMMARY | 2025-03-19 10:05 | XMS_ITS | Encounter Summary ---
Author Organization [facility] Address [address] [place] [address] Care Team Providers Care Manufacturing Support Engineer Name Role Phone Dez Tavarez MD Primary Care Provider [phone] Encounter Details Date Type Department Care Team (Latest Contact Info) Description 03/13/2003 Outpatient Historical [facility] [address] [place] [address] Inocente Romo MD [address] [place] [phone] PREOP CARDIOVASC EXAM (Primary Dx) Social History Tobacco Use Types Packs/Day Years Used Date Smoking Tobacco: Never Assessed Sex and Gender Information Value Date Recorded Sex Assigned at Not on file Legal Sex Male 5:33 AM SHOW HOST Gender Identity Not on file Sexual Orientation Not on file documented as of this encounter Plan of Treatment Not on file documented as of this encounter Visit Diagnoses Diagnosis Pre-operative cardiovascular examination- Primary documented in this encounter Care Teams Manufacturing Support Engineer Relationship Specialty Start Date End Date Dez Tavarez MD [address] [place] [address] [place] [address] PCP - General Family Practice 08/03/12 documented as of this encounter
--- OUTSIDE RECORDS SUMMARY | 2025-03-19 10:05 | XMS_ITS | Encounter Summary ---
Author Organization [facility] Address [address] [place] [address] Care Team Providers Care Textile Clothing And Footwear Mechanic Name Role Phone Dez Tavarez MD Primary Care Provider [phone] Encounter Details Date Type Department Care Team (Latest Contact Info) Description 06/15/[address] 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
--- OUTSIDE RECORDS SUMMARY | 2025-03-19 10:05 | XMS_ITS | Encounter Summary ---
Author Organization [facility] Address [address] [place] [address] Care Team Providers Care Chicken Picker Name Role Phone Dez Tavarez MD Primary Care Provider [phone] Encounter Details Date Type Department Care Team (Late st Contact Info) Description 05/25/2005 Outpatient Historical [facility] 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
--- OUTSIDE RECORDS SUMMARY | 2025-03-19 10:05 | XMS_ITS | Encounter Summary ---
Author Organization [facility] Address [address] [place] [address] Care Team Providers Care Event Av Operator Name Role Phone Dez Tavarez MD Primary Care Provider [phone] Encounter Details Date Type Department Care Team (Latest Contact Info) Description 04/06/1999 Outpatient Historical [facility] Ophthalmology 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
--- OUTSIDE RECORDS SUMMARY | 2025-03-19 10:05 | XMS_ITS | Encounter Summary ---
Author Organization [facility] Address [address] [place] [address] Care Team Providers Care Senior Sales Assistant Name Role Phone Dez Tavarez MD Primary Care Provider [phone] Encounter Details Date Type Department Care Team (Late st Contact Info) Description 06/13/2007 Outpatient Historical [facility] Dermatology- [address] [place] 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
--- OUTSIDE RECORDS SUMMARY | 2025-03-19 10:05 | XMS_ITS | Encounter Summary ---
Author Organization [facility] Address [address] [place] [address] Care Team Providers Care Ice Puller Name Role Phone Dez Tavarez MD Primary Care Provider [phone] Encounter Details Date Type Department Care Team (Latest Contact Info) Description 05/04/2008 Outpatient Historical [facility] Hand Therapy [address] [place] [address] [place] [address] Jose Manuel Ugarte MD [address] [place] [address] Primary Localized Osteoarthrosis, Forearm Social History Tobacco Use Types Packs/Day Years Used Date Smoking Tobacco: Never Assessed Sex and Gender Information Value Date Recorded Sex Assigned at Not on file 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
--- OUTSIDE RECORDS SUMMARY | 2025-03-19 10:05 | XMS_ITS | Encounter Summary ---
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
--- OUTSIDE RECORDS SUMMARY | 2025-03-19 10:05 | XMS_ITS | Encounter Summary ---
Author Organization [facility] Address [address] [place] [address] Care Team Providers Care Neurology Technician Name Role Phone Dez Tavarez MD Primary Care Provider [phone] Encounter Details Date Type Department Care Team (Late st Contact Info) Description 12/03/2004 Outpatient Historical [facility] [address] [place] [address] [facility] [address] [place] [address] Inocente Romo MD [address] [place] [address] JOINT STIFFNESS NEC-L/LEG (Primary Dx) Social History Tobacco Use Types Packs/Day Years Used Date Smoking Tobacco: Never Assessed Sex and Gender Information Value Date Recorded Sex Assigned at Not on file 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
--- OUTSIDE RECORDS SUMMARY | 2025-03-19 10:05 | XMS_ITS | Encounter Summary ---
Author Organization [facility] Address [address] [place] [address] Care Team Providers Care Reo Asset Manager Name Role Phone Dez Tavarez MD Primary Care Provider [phone] Encounter Details Date Type Department Care Team (Late st Contact Info) Description 07/16/2003 Outpatient Historical [facility] Orthopedics- [address] [place] 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
--- OUTSIDE RECORDS SUMMARY | 2025-03-19 10:05 | XMS_ITS | Encounter Summary ---
Author Organization [facility] Address [address] [place] [address] Care Team Providers Care Pill Machine Operator Name Role Phone Dez Taavrez MD Primary Care Provider [phone] Encounter Details Date Type Department Care Team (Latest Contact Info) Description 12/31/1997 Outpatient Historical [facility] Rheumatology- [address] [place] [address] [place] [address] Juan Ramon Bai MD NO ADDRESS ON FILE Disorders of bursae and tendons in shoulder region, unspecified (Primary Dx); Primary localized osteoarthrosis, hand Social History Tobacco Use Types Packs/Day Years Used Date Smoking Tobacco: Never Assessed Sex and Gender Information Value Date Recorded Sex Assigned at Not on file 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
--- OUTSIDE RECORDS SUMMARY | 2025-03-19 10:05 | XMS_ITS | Encounter Summary ---
Author Organization [facility] Address [address] [place] [address] Care Team Providers Care Press Tender Short Goods Name Role Phone Dez Tavarez MD Primary Care Provider [phone] Encounter Details Date Type Department Care Team (Late st Contact Info) Description 04/02/2003 Outpatient Historical [facility] Orthopedics- [address] [place] 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
--- OUTSIDE RECORDS SUMMARY | 2025-03-19 10:05 | XMS_ITS | Encounter Summary ---
Author Organization [facility] Address [address] [place] [address] Care Team Providers Care Orthodontic Lab Technician Name Role Phone Dez Tavarez MD Primary Care Provider [phone] Encounter Details Date Type Department Care Team (Late st Contact Info) Description 02/26/2003 Outpatient Historical [facility] Orthopedics- [address] [place] 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 Gender Identity Not on file Sexual Orientation Not on file documented as of this encounter Plan of Treatment Not on file documented as of this encounter Visit Diagnoses Diagnosis Pain in joint, shoulder region- Primary Localized osteoarthrosis not specified whether primary or secondary, shoulder region Unspecified essential hypertension Personal history of surgery to heart and great vessels, presenting hazards to health documented in this encounter Care Teams Orthodontic Lab Technician Relationship Specialty Start Date End Date Dez Tavarez MD [address] [place] [address] [place] [address] PCP - General Family Practice 08/03/12 documented as of this encounter
--- OUTSIDE RECORDS SUMMARY | 2025-03-19 10:05 | XMS_ITS | Encounter Summary ---
Author Organization [facility] Address [address] [place] [address] Care Team Providers Care Central Supply Clerk Name Role Phone Dez Tavarez MD Primary Care Provider [phone] Encounter Details Date Type Department Care Team (Latest Contact Info) Description 07/22/2003 Outpatient Historical [facility] Pre[facility] Center [address] [place] [address] Inocente Romo MD [address] [place] [address] PREOP EXAM OTHER SPECIFIED (Primary Dx) Social History Tobacco Use Types Packs/Day Years Used Date Smoking Tobacco: Never Assessed Sex and Gender Information Value Date Recorded Sex Assigned at Not on file 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
--- OUTSIDE RECORDS SUMMARY | 2025-03-19 10:05 | XMS_ITS | Encounter Summary ---
Author Organization [facility] Address [address] [place] [address] Care Team Providers Care Pro Shop Attendant Name Role Phone Dez Tavarez MD Primary Care Provider [phone] Encounter Details Date Type Department Care Team (Late st Contact Info) Description 10/26/2006 Inpatient Historical [facility] IN BED Inocente Romo MD [address] [place] [address] Osteoarth NOS-L/Leg (Primary Dx) Social History Tobacco Use Types Packs/Day Years Used Date Smoking Tobacco: Never Assessed Sex and Gender Information Value Date Recorded Sex Assigned at Not on file 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 Gender Identity Not on file Sexual Orientation Not on file documented as of this encounter Plan of Treatment Not on file documented as of this encounter Procedures Procedure Name Priority Date/Time Associated Diagnosis Comments CBC WITHOUT DIFFERENTIAL Routine 10/29/2006 5:12 AM CDT CBC WITH DIFFERENTIAL Routine 10/28/2006 6:57 AM CDT CBC WITHOUT DIFFERENTIAL Routine 10/27/2006 6:45 AM CDT POC GLUCOSE Routine 10/26/2006 2:11 PM CDT POC GLUCOSE Routine 10/26/2006 9:43 AM CDT documented in this encounter Results * (ABNORMAL) CBC WITHOUT DIFFERENTIAL (10/29/2006 5:12 AM CDT) WBC 8.2 4.8 - 10.8 K/ul INTERFACE SYSTEM RBC 3.68(L) 4.60 - 6.20 Mil/ul INTERFACE SYSTEM HEMOGLOBIN 10.9(L) 14.0 - 18.0 g/dL INTERFACE SYSTEM HEMATOCRIT 33.0(L) 41.0 - 53.0 % INTERFACE SYSTEM MCV 89.7 84.0 - 103.0 Fl INTERFACE SYSTEM MCH 29.6 27.0 - 34.0 pg INTERFACE SYSTEM MCHC 33.0 30.0 - 35.0 g/dL INTERFACE SYSTEM RDW 12.8 11.0 - 14.5 % INTERFACE SYSTEM PLATELETS 131(L) 140 - 440 K/ul INTERFACE SYSTEM MPV 9.9 8.9 - 12.8 Fl INTERFACE SYSTEM NEUTROPHILS 71.4 42.2 - 75.2 % INTERFACE SYSTEM LYMPHOCYTES 14.6(L) 24.0 - 44.0 % INTERFACE SYSTEM MONOCYTES 11.6(H) 2.0 - 10.0 % INTERFACE SYSTEM EOSINOPHILS 2.3 0.0 - 7.0 % INTERFACE SYSTEM BASOPHILS 0.1 0.0 - 1.0 % INTERFACE SYSTEM NEUTROPHIL ABSOLUTE 5.8 2.0 - 8.0 K/ul INTERFACE SYSTEM LYMPHOCYTE ABSOLUTE 1.2 1.2 - 4.0 K/ul INTERFACE SYSTEM MONOCYTE ABSOLUTE 1.0(H) 0.1 - 0.6 K/ul INTERFACE SYSTEM EOSINOPHIL ABSOLUTE 0.2 0.0 - 0.7 K/ul INTERFACE SYSTEM BASOPHILS ABSOLUTE 0.0 0.0 - 0.2 K/ul INTERFACE SYSTEM 10/29/2006 5:12 AM CDT us Inocente Romo MD HEMATOLOGY ORDERABLES E dited INTERFACE SYSTEM Refer to clinic/hospital department * (ABNORMAL) CBC WITH DIFFERENTIAL (10/28/2006 6:57 AM CDT) WBC 9.2 4.8 - 10.8 K/ul INTERFACE SYSTEM RBC 3.94(L) 4.60 - 6.20 Mil/ul INTERFACE SYSTEM HEMOGLOBIN 11.7(L) 14.0 - 18.0 g/dL INTERFACE SYSTEM HEMATOCRIT 35.3(L) 41.0 - 53.0 % INTERFACE SYSTEM MCV 89.6 84.0 - 103.0 Fl INTERFACE SYSTEM MCH 29.7 27.0 - 34.0 pg INTERFACE SYSTEM MCHC 33.1 30.0 - 35.0 g/dL INTERFACE SYSTEM RDW 12.8 11.0 - 14.5 % INTERFACE SYSTEM PLATELETS 130(L) 140 - 440 K/ul INTERFACE SYSTEM MPV 9.9 8.9 - 12.8 Fl INTERFACE SYSTEM NEUTROPHILS 69.8 42.2 - 75.2 % INTERFACE SYSTEM LYMPHOCYTES 14.5(L) 24.0 - 44.0 % INTERFACE SYSTEM MONOCYTES 12.6(H) 2.0 - 10.0 % INTERFACE SYSTEM EOSINOPHILS 3.0 0.0 - 7.0 % INTERFACE SYSTEM BASOPHILS 0.1 0.0 - 1.0 % INTERFACE SYSTEM NEUTROPHIL ABSOLUTE 6.4 2.0 - 8.0 K/ul INTERFACE SYSTEM LYMPHOCYTE ABSOLUTE 1.3 1.2 - 4.0 K/ul INTERFACE SYSTEM MONOCYTE ABSOLUTE 1.2(H) 0.1 - 0.6 K/ul INTERFACE SYSTEM EOSINOPHIL ABSOLUTE 0.3 0.0 - 0.7 K/ul INTERFACE SYSTEM BASOPHILS ABSOLUTE 0.0 0.0 - 0.2 K/ul INTERFACE SYSTEM 10/28/2006 6:57 AM CDT us Inocente Romo MD HEMATOLOGY ORDERABLES E dited INTERFACE SYSTEM Refer to clinic/hospital department * (ABNORMAL) CBC WITHOUT DIFFERENTIAL (10/27/2006 6:45 AM CDT) WBC 6.9 4.8 - 10.8 K/ul INTERFACE SYSTEM RBC 3.82(L) 4.60 - 6.20 Mil/ul INTERFACE SYSTEM HEMOGLOBIN 11.2(L) 14.0 - 18.0 g/dL INTERFACE SYSTEM HEMATOCRIT 34.5(L) 41.0 - 53.0 % INTERFACE SYSTEM MCV 90.3 84.0 - 103.0 Fl INTERFACE SYSTEM MCH 29.3 27.0 - 34.0 pg INTERFACE SYSTEM MCHC 32.5 30.0 - 35.0 g/dL INTERFACE SYSTEM RDW 13.2 11.0 - 14.5 % INTERFACE SYSTEM PLATELETS 123(L) 140 - 440 K/ul INTERFACE SYSTEM MPV 9.7 8.9 - 12.8 Fl INTERFACE SYSTEM NEUTROPHILS 65.0 42.2 - 75.2 % INTERFACE SYSTEM LYMPHOCYTES 17.7(L) 24.0 - 44.0 % INTERFACE SYSTEM MONOCYTES 13.5(H) 2.0 - 10.0 % INTERFACE SYSTEM EOSINOPHILS 3.5 0.0 - 7.0 % INTERFACE SYSTEM BASOPHILS 0.3 0.0 - 1.0 % INTERFACE SYSTEM NEUTROPHIL ABSOLUTE 4.5 2.0 - 8.0 K/ul INTERFACE SYSTEM LYMPHOCYTE ABSOLUTE 1.2 1.2 - 4.0 K/ul INTERFACE SYSTEM MONOCYTE ABSOLUTE 0.9(H) 0.1 - 0.6 K/ul INTERFACE SYSTEM EOSINOPHIL ABSOLUTE 0.2 0.0 - 0.7 K/ul INTERFACE SYSTEM BASOPHILS ABSOLUTE 0.0 0.0 - 0.2 K/ul INTERFACE SYSTEM 10/27/2006 6:45 AM CDT Result [facility] Inocente Romo MD HEMATOLOGY ORDERABLES E dited Performing Organization Address [facility] Phone Number INTERFACE SYSTEM Refer to clinic/hospital department * (ABNORMAL) POC GLUCOSE (10/26/2006 2:11 PM CDT) GLUCOSE POC 105(H) 60 - 100 mg/dL INTERFACE SYSTEM 10/26/2006 2:11 PM CDT Result [facility] Inocente Romo MD POINT OF CARE TESTING E dited Performing Organization Address [facility] de Phone Number INTERFACE SYSTEM Refer to clinic/hospital department * (ABNORMAL) POC GLUCOSE (10/26/2006 9:43 AM CDT) GLUCOSE POC 104(H) 60 - 100 mg/dL INTERFACE SYSTEM 10/26/2006 9:43 AM CDT Inocente Romo MD POINT OF CARE TESTING E dited Performing Organization Address [facility] Co de Phone Number INTERFACE SYSTEM Refer to clinic/hospital department documented in this encounter Visit Diagnoses Diagnosis Osteoarthrosis, unspecified whether generalized or localized, lower leg- Primary documented in this encounter Care Teams Pro Shop Attendant Relationship Specialty Start Date End Date Dez Tavarez MD [address] [place] [address] [place] [address] PCP - General Family Practice 08/03/12 documented as of this encounter
--- OUTSIDE RECORDS SUMMARY | 2025-03-19 10:05 | XMS_ITS | Encounter Summary ---
Author Organization [facility] Address [address] [place] [address] Care Team Providers Care Knit Goods Cutter Hand Name Role Phone Dez Tavarez MD Primary Care Provider [phone] Encounter Details Date Type Department Care Team (Late st Contact Info) Description 05/14/2003 Outpatient Historical [facility] Orthopedics- [address] [place] 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
--- OUTSIDE RECORDS SUMMARY | 2025-03-19 10:05 | XMS_ITS | Encounter Summary ---
Author Organization [facility] Address [address] [place] [address] Care Team Providers Care Cnc Lathe Programmer Name Role Phone Dez Tavarez MD Primary Care Provider [phone] Encounter Details Date Type Department Care Team (Late st Contact Info) Description 12/20/2004 Outpatient Historical [facility] Orthopedics- [address] [place] 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
--- OUTSIDE RECORDS SUMMARY | 2025-03-19 10:05 | XMS_ITS | Encounter Summary ---
Author Organization [facility] Address [address] [place] [address] Care Team Providers Care Salesperson Burial Needs Name Role Phone Dez Tavarez MD Primary Care Provider [phone] Encounter Details Date Type Department Care Team (Late st Contact Info) Description 03/17/2003 Inpatient Historical [facility] IN BED Inocente Romo MD [address] [place] [address] LOC OSTEOARTH NOS-SHLDER (Primary Dx) Social History Tobacco Use Types Packs/Day Years Used Date Smoking Tobacco: Never Assessed Sex and Gender Information Value Date Recorded Sex Assigned at Not on file 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
--- OUTSIDE RECORDS SUMMARY | 2025-03-19 10:05 | XMS_ITS | Encounter Summary ---
Author Organization [facility] Address [address] [place] [address] Care Team Providers Care High Density Finishing Operator Name Role Phone Dez Tavarez MD Primary Care Provider [phone] Encounter Details Date Type Department Care Team (Latest Contact Info) Description 12/31/1997 Outpatient Historical [facility] Imaging Services-Cr Zendejas Levy [address] [place] [phone] Juan Ramon Bai MD NO ADDRESS ON FILE Pain in joint, shoulder region (Primary Dx) Social History Tobacco Use Types Packs/Day Years Used Date Smoking Tobacco: Never Assessed Sex and Gender Information Value Date Recorded Sex Assigned at Not on file 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
--- OUTSIDE RECORDS SUMMARY | 2025-03-19 10:05 | XMS_ITS | Encounter Summary ---
Author Organization [facility] Address [address] [place] [address] Care Team Providers Care Loadmaster Name Role Phone Dez Tavarez MD Primary Care Provider [phone] Encounter Details Date Type Department Care Team (Late st Contact Info) Description 01/20/2005 Outpatient Historical [facility] Orthopedics- [address] [place] [phone] Inocente Romo MD [address] 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
--- OUTSIDE RECORDS SUMMARY | 2025-03-19 10:06 | XMS_ITS | Encounter Summary ---
Author Organization [facility] Address [address] [place] [address] Care Team Providers Care Store Operations Manager Name Role Phone Dez Tavarez MD Primary Care Provider [phone] Encounter Details Date Type Department Care Team (Late st Contact Info) Description 09/16/2004 Outpatient Historical [facility] Orthopedics- 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
--- OUTSIDE RECORDS SUMMARY | 2025-03-19 10:06 | XMS_ITS | Encounter Summary ---
Author Organization [facility] Address [address] [place] [address] Care Team Providers Care Honing Machine Set Up Operator Name Role Phone Dez Tavarez MD Primary Care Provider [phone] Encounter Details Date Type Department Care Team (Late st Contact Info) Description 09/24/2003 Outpatient Historical [facility] Orthopedics- 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
--- OUTSIDE RECORDS SUMMARY | 2025-03-19 10:06 | XMS_ITS | Encounter Summary ---
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 Gender Identity Not on file Sexual Orientation Not on file documented as of this encounter Plan of Treatment Not on file documented as of this encounter Procedures Procedure Name Priority Date/Time Associated Diagnosis Comments CBC WITH DIFFERENTIAL Routine 10/22/2004 4:46 AM CDT URINALYSIS W/REFLEX MICROSCOPIC Routine 10/21/2004 10:07 PM CDT MAGNESIUM LEVEL Routine 10/21/2004 8:55 AM CDT BASIC METABOLIC PANEL Routine 10/21/2004 8:55 AM CDT CBC WITH DIFFERENTIAL Routine 10/21/2004 8:54 AM CDT CBC WITHOUT DIFFERENTIAL Routine 10/20/2004 6:45 AM CDT documented in this encounter Results * (ABNORMAL) CBC WITH DIFFERENTIAL (10/22/2004 4:46 AM CDT) WBC 8.3 4.8 - 10.8 K/ul INTERFACE SYSTEM RBC 3.45(L) 4.60 - 6.20 Mil/ul INTERFACE SYSTEM HEMOGLOBIN 10.3(L) 14.0 - 18.0 g/dL INTERFACE SYSTEM HEMATOCRIT 31.5(L) 41.0 - 53.0 % INTERFACE SYSTEM MCV 91.3 84.0 - 103.0 Fl INTERFACE SYSTEM MCH 29.9 27.0 - 34.0 pg INTERFACE SYSTEM MCHC 32.7 30.0 - 35.0 g/dL INTERFACE SYSTEM RDW 13.5 11.0 - 14.5 percent(in active) INTERFACE SYSTEM PLATELETS 162 140 - 440 K/ul INTERFACE SYSTEM MPV 9.7 8.9 - 12.8 Fl INTERFACE SYSTEM NEUTROPHILS 68.9 42.2 - 75.2 percent(in active) INTERFACE SYSTEM LYMPHOCYTES 16.9(L) 24.0 - 44.0 percent(in active) INTERFACE SYSTEM MONOCYTES 11.2(H) 2.0 - 10.0 percent(in active) INTERFACE SYSTEM EOSINOPHILS 2.9 0.0 - 7.0 % INTERFACE SYSTEM BASOPHILS 0.1 0.0 - 1.0 percent(in active) INTERFACE SYSTEM NEUTROPHIL ABSOLUTE 5.7 2.0 - 8.0 K/uL INTERFACE SYSTEM LYMPHOCYTE ABSOLUTE 1.4 1.2 - 4.0 K/ul INTERFACE SYSTEM MONOCYTE ABSOLUTE 0.9(H) 0.1 - 0.6 K/ul INTERFACE SYSTEM EOSINOPHIL ABSOLUTE 0.2 0.0 - 0.7 K/ul INTERFACE SYSTEM BASOPHILS ABSOLUTE 0.0 0.0 - 0.2 K/ul INTERFACE SYSTEM 10/22/2004 4:46 AM CDT us Roge Choe MD HEMATOLOGY ORDERABLES Final Re sult INTERFACE SYSTEM Refer to clinic/hospital department * URINALYSIS (10/21/2004 10:07 PM CDT) COLOR UA Yellow Straw INTERFACE SYSTEM CLARITY UA Clear Clear INTERFACE SYSTEM LEUKOCYTE ESTERASE UA NEGATIVE NEGATIVE INTERFACE SYSTEM NITRITE UA NEGATIVE NEGATIVE INTERFACE SYSTEM PH UA 7.0 5.0 - 9.0 INTERFACE SYSTEM PROTEIN UA NEGATIVE NEGATIVE INTERFACE SYSTEM GLUCOSE UA NEGATIVE NEGATIVE INTERFACE SYSTEM KETONES UA NEGATIVE NEGATIVE INTERFACE SYSTEM UROBILINOGEN UA 2.0 INTE RFACE SYSTEM BILIRUBIN UA NEGATIVE NEGATIVE INTERFA CE SYSTEM BLOOD UA NEGATIVE NEGATIVE INTERFACE SYSTEM SPECIFIC GRAVITY UA 1.015 1.005 - 1.030 INTERFACE SYSTEM MICRO EXAM No No INTERFACE SYSTEM 10/21/2004 10:0 7 PM CDT Roge Choe MD URINE ORDERABLES Final Result Performing Organization Address [facility] Phone Number INTERFACE SYSTEM Refer to clinic/hospital department * MAGNESIUM LEVEL (10/21/2004 8:55 AM CDT) MAGNESIUM 2.2 1.6 - 2.3 mg/dL INTERFACE SYSTEM 10/21/2004 8:55 AM CDT Inocente Romo MD CHEMISTRY ORDERABLES Fi nal Result Performing Organization Address [facility] Phone Number INTERFACE SYSTEM Refer to clinic/hospital department * (ABNORMAL) BASIC METABOLIC PANEL (10/21/2004 8:55 AM CDT) GLUCOSE 94 70 - 110 mg/dL INTERFACE SYSTEM BUN 13 9 - 20 mg/dL INTERFACE SYSTEM CREATININE 0.9 0.7 - 1.5 mg/dL (inactive) INTERFACE SYSTEM SODIUM 137 136 - 145 mEq/L INTERFACE SYSTEM POTASSIUM 4.0 3.5 - 5.0 mEq/L INTERFACE SYSTEM CHLORIDE 100 95 - 110 mEq/L INTERFACE SYSTEM CO2 31 22 - 32 mmol/l INTERFACE SYSTEM ANION GAP 10 9 - 20 mEq/L INTERFACE SYSTEM OSMOLALITY, CALCULATED 282 275 - 295 mOsm/Kg INTERFACE SYSTEM CALCIUM 7.9(L) 8.4 - 10.5 mg/dL INTERFACE SYSTEM 10/21/2004 8:55 AM CDT Inocente Romo MD CHEMISTRY ORDERABLES Fi nal Result Performing Organization Address [facility] Phone Number INTERFACE SYSTEM Refer to clinic/hospital department * (ABNORMAL) CBC WITH DIFFERENTIAL (10/21/2004 8:54 AM CDT) WBC 8.5 4.8 - 10.8 K/ul INTERFACE SYSTEM RBC 3.39(L) 4.60 - 6.20 Mil/ul INTERFACE SYSTEM HEMOGLOBIN 10.2(L) 14.0 - 18.0 g/dL INTERFACE SYSTEM HEMATOCRIT 31.1(L) 41.0 - 53.0 % INTERFACE SYSTEM MCV 91.7 84.0 - 103.0 Fl INTERFACE SYSTEM MCH 30.1 27.0 - 34.0 pg INTERFACE SYSTEM MCHC 32.8 30.0 - 35.0 g/dL INTERFACE SYSTEM RDW 13.4 11.0 - 14.5 percent(in active) INTERFACE SYSTEM PLATELETS 159 140 - 440 K/ul INTERFACE SYSTEM MPV 9.5 8.9 - 12.8 Fl INTERFACE SYSTEM NEUTROPHILS 76.3(H) 42.2 - 75.2 percent(in active) INTERFACE SYSTEM LYMPHOCYTES 11.8(L) 24.0 - 44.0 percent(in active) INTERFACE SYSTEM MONOCYTES 8.9 2.0 - 10.0 percent(in active) INTERFACE SYSTEM EOSINOPHILS 2.8 0.0 - 7.0 % INTERFACE SYSTEM BASOPHILS 0.2 0.0 - 1.0 percent(in active) INTERFACE SYSTEM NEUTROPHIL ABSOLUTE 6.5 2.0 - 8.0 K/uL INTERFACE SYSTEM LYMPHOCYTE ABSOLUTE 1.0(L) 1.2 - 4.0 K/ul INTERFACE SYSTEM MONOCYTE ABSOLUTE 0.8(H) 0.1 - 0.6 K/ul INTERFACE SYSTEM EOSINOPHIL ABSOLUTE 0.2 0.0 - 0.7 K/ul INTERFACE SYSTEM BASOPHILS ABSOLUTE 0.0 0.0 - 0.2 K/ul INTERFACE SYSTEM 10/21/2004 8:54 AM CDT us Inocente Romo MD HEMATOLOGY ORDERABLES F inal Result INTERFACE SYSTEM Refer to clinic/hospital department * (ABNORMAL) CBC WITHOUT DIFFERENTIAL (10/20/2004 6:45 AM CDT) WBC 11.4(H) 4.8 - 10.8 K/ul INTERFACE SYSTEM RBC 3.82(L) 4.60 - 6.20 Mil/ul INTERFACE SYSTEM HEMOGLOBIN 11.3(L) 14.0 - 18.0 g/dL INTERFACE SYSTEM HEMATOCRIT 35.3(L) 41.0 - 53.0 % INTERFACE SYSTEM MCV 92.4 84.0 - 103.0 Fl INTERFACE SYSTEM MCH 29.6 27.0 - 34.0 pg INTERFACE SYSTEM MCHC 32.0 30.0 - 35.0 g/dL INTERFACE SYSTEM RDW 13.6 11.0 - 14.5 percent(in active) INTERFACE SYSTEM PLATELETS 209 140 - 440 K/ul INTERFACE SYSTEM MPV 9.4 8.9 - 12.8 Fl INTERFACE SYSTEM NEUTROPHILS 85.6(H) 42.2 - 75.2 percent(in active) INTERFACE SYSTEM LYMPHOCYTES 8.3(L) 24.0 - 44.0 percent(in active) INTERFACE SYSTEM MONOCYTES 6.0 2.0 - 10.0 percent(in active) INTERFACE SYSTEM BASOPHILS 0.1 0.0 - 1.0 percent(in active) INTERFACE SYSTEM NEUTROPHIL ABSOLUTE 9.8(H) 2.0 - 8.0 K/uL INTERFACE SYSTEM LYMPHOCYTE ABSOLUTE 1.0(L) 1.2 - 4.0 K/ul INTERFACE SYSTEM MONOCYTE ABSOLUTE 0.7(H) 0.1 - 0.6 K/ul INTERFACE SYSTEM BASOPHILS ABSOLUTE 0.0 0.0 - 0.2 K/ul INTERFACE SYSTEM 10/20/2004 6:45 AM CDT us Inocente Romo MD HEMATOLOGY ORDERABLES F inal Result INTERFACE SYSTEM Refer to clinic/hospital department documented in this encounter Visit Diagnoses Diagnosis Osteoarthrosis, unspecified whether generalized or localized, lower leg- Primary documented in this encounter Care Teams Wrap Turner Relationship Specialty Start Date End Date Dez Tavarez MD [address] [place] [address] [place] [address] PCP - General Family Practice 08/03/12 documented as of this encounter
--- OUTSIDE RECORDS SUMMARY | 2025-03-19 10:06 | XMS_ITS | Encounter Summary ---
Author Organization [facility] Address [address] [place] [address] Care Team Providers Care Family Protection Specialist Name Role Phone Dez Tavarez MD Primary Care Provider Encounter Details Date Type Department Care Team (Late st Contact Info) Description 12/29/2003 Outpatient Historical [facility] Orthopedics- 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
--- OUTSIDE RECORDS SUMMARY | 2025-03-19 10:06 | XMS_ITS | Encounter Summary ---
Author Organization [facility] Address [address] [place] [address] Care Team Providers Care Digital Hardware Design Engineer Name Role Phone Dez Tavarez MD Primary Care Provider [phone] Encounter Details Date Type Department Care Team (Late st Contact Info) Description 08/13/2003 Outpatient Historical [facility] Orthopedics- [address] [place] [address] 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
--- OUTSIDE RECORDS SUMMARY | 2025-03-19 10:06 | XMS_ITS | Encounter Summary ---
Author Organization [facility] Address [address] [place] [address] Care Team Providers Care Radiological Equipment Specialist Name Role Phone Dez Tavarez MD Primary Care Provider [phone] Reason for Referral * Outpatient Services (Routine) - Closed Specialty Diagnoses / Procedures Referred By Juan alcocer Referred To Contact Diagnoses Non-rheumatic mitral regurgitation Procedures ECHOCARDIOGRAM W/ CONTRAST AGENT ECHO COMPLETE Chrissie Card FNP [facility] Pre-Registration Filion CALL TO MAKE APPOINTMENT ONLY [address] [place] [address] Phone: tel: fax: Referral ID Status Reason Start Date Expiration Date Visits Re quested Visits Authorized [id number] Closed 06/07/2016 10/27/2016 1 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 MOVER HELPER Encounter Details Date Type Department Care Team (Latest Contact Info) Description 10/10/2016 Ancillary Orders [facility]- [place] [address] [place] [address] Chrissie Card FNP NO ADDRESS ON FILE Non-rheumatic mitral regurgitation Social History Tobacco Use Types Packs/Day Years Used Date Smoking Tobacco: Former Cigarettes Q uit: 07/03/1969 Smokeless Tobacco: Never Alcohol Use Standard Drinks/Week Comments No 0 (1 standard drink = 0.6 oz pur e alcohol) Sex and Gender Information Value Date Recorded Sex Assigned at Not on file 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 Gender Identity Not on file Sexual Orientation Not on file Occupation Industry Job Start Date Job End Date Not on file Not on file Not on file Not on file documented as of this encounter Plan of Treatment Not on file documented as of this encounter Results * ECHOCARDIOGRAM W/ CONTRAST AGENT (10/10/2016 1:53 PM CDT) EJECTION FRACTION 45 INTERFACE SYSTEM 10/10/2016 10:3 7 AM CDT Narrative INTERFACE SYSTEM - 10/10/2016 4:41 PM CDT [facility] [place] [address] Transthoracic Echocardiography Patient: Leonel Study ECHO COMPLETE José Luis Armas ID: Gender: M : 1935 Age: 81 Room: Study 10/10/2016 Pt Outpatient Date: Status: Study 10:37 AM CSN #: [id number] Time: Ordering:Chrissie Granger Interpreting:Nataly Uribe MD Buggy Driver: Elba Menendez [facility] Indications and History: Mitral lnsufficiency. Labs, prior tests, procedures, and surgery: Transthoracic echocardiography (October 07, 2015). The mitral valve showed moderate regurgitation. EF was 50%. Coronary artery bypass grafting. Summary and Conclusion: - Left ventricle: The cavity size was mildly dilated. Hypertrophy was noted. Systolic function was mildly reduced. Assessment of systolic function was difficult due to underlying arrhythmia. The left ventricular ejection fraction was 45%, by biplane method of disks. Possible hypokinesis of the basalinferolateral and inferior myocardium. Left ventricular diastolic function parameters were normal. - Right ventricle: The cavity size was dilated. Systolic function was reduced. Systolic pressure was at the upper limits of normal. RV systolic pressure: 35mm Hg (S, est). - Left atrium: The atrium was dilated. - Right atrium: The atrium was dilated. - Aortic valve: Trileaflet; thickened, calcified leaflets. There was moderate to severe stenosis. Mean gradient: 21mm Hg (S). Peak gradient: 33mm Hg (S). Valve area: 1.06cm\S\2(VTI). Peak velocity ratio of LVOT to aortic valve: 0.27. Valve area: 1.07cm\S\2 (Vmax). - Mitral valve: Calcified annulus. Mildly thickened Mild regurgitation. - Tricuspid valve: Moderate regurgitation. - Pulmonic valve: Mild regurgitation. Comparison: Compared to the previous study, aortic stenosishas worsened. Procedure information: Study status: Routine. Procedure: Transthoracic echocardiography. Image quality was adequate. Scanning was performed from the parasternal, apical, subcostal, and suprasternal notch acoustic windows. Intravenous contrast (Definity) was administered to opacify the LV. There were no contrast reactions. Study components: M-mode, 2D, complete spectral Doppler, and color Doppler. Height: Height: 167.6cm. Height: 66in. Weight: Weight: 90.9kg. Weight: 199.6lb. Body mass index: BMI: 32.4kg/m\S\2. Body surface area: BSA: 2.09m\S\2. Blood pressure: 100/80. Patient status: Outpatient. Study date: Study date: October 10, 2016. Cardiac Anatomy: LEFT VENTRICLE: The cavity size was mildly dilated. Hypertrophy was noted. Systolic function was mildly reduced. Assessment of systolic function was difficult due to underlying arrhythmia. The left ventricular ejection fraction was 45%, by biplane method of disks. Regional wall motion abnormalities: Possible hypokinesis of the basalinferolateral and inferior myocardium. Left ventricular diastolic function parameters were normal. RIGHT VENTRICLE: The cavity size was dilated. Systolic function was reduced. Systolic pressure was at the upper limits of normal. LEFT ATRIUM: The atrium was dilated. RIGHT ATRIUM: The atrium was dilated. ATRIAL SEPTUM: No obvious PFO or ASD identified by 2D imaging and color Doppler. AORTIC VALVE: Trileaflet; thickened, calcified leaflets. Valve mobility was restricted. Doppler: There was moderate to severe stenosis. No significant regurgitation. VTI ratio of LVOT to aortic valve: 0.26. Valve area: 1.06cm\S\2(VTI). Indexed valve area: 0.51cm\S\2/m\S\2 (VTI). Peak velocity ratio of LVOT to aortic valve: 0.27. Valve area: 1.07cm\S\2 (Vmax). Indexed valve area: 0.51cm\S\2/m\S\2 (Vmax). Mean gradient: 21mm Hg (S). Peak gradient: 33mm Hg (S). MITRAL VALVE: Calcified annulus. Mildly thickened Mobility was not restricted. No echocardiographic evidence for prolapse. Doppler: There was no evidence for stenosis. Mild regurgitation. TRICUSPID VALVE: Structurally normal valve. Mobility was not restricted. Doppler: There was no evidence for stenosis. Moderate regurgitation. PULMONIC VALVE: Not well visualized. The valve appears to be grossly normal. Doppler: There was no evidence for stenosis. Mild regurgitation. PERICARDIUM: There was no pericardial effusion. AORTA: Aortic root: The aortic root was normal in size. Aortic arch: The aortic arch was normal in size. SYSTEMIC VEINS: Inferior vena cava: The vessel was normal in size. INTRACARDIAC MASS THROMBUS: No apparent intracavitary masses or thrombi detected. 2D measurements Adult Normal Range Left ventricle LVID ED, chord, PLAX *55.99 mm 43-52 LVID ES, chord, PLAX *41.92 mm 23-38 FS, chord, PLAX *25 % >29 LVPW, ED 9 mm IVS/LVPW ratio, ED 1.14 <1.3 Vol ED, MOD1 155 ml Vol ES, MOD1 91.2 ml Stroke vol, MOD1 63.8 ml Vol index, ED, MOD1 74 ml/m\S\2 Vol index, ES, MOD1 44 ml/m\S\2 Stroke index, MOD1 30.5 ml/m\S\2 Vol ED, MOD2 157.2 ml 62-170 Vol ES, MOD2 87 ml EF, MOD2 44.68 % Vol index, ED, MOD2 75 ml/m\S\2 Vol index, ES, MOD2 42 ml/m\S\2 Ventricular septum IVS, ED 10.28 mm LVOT Diam, S 22.6 mm AP diam 22.65 mm Area 4.01 cm\S\2 Aorta Root diam, ED 33.35 mm Left atrium AP dim ES, PLAX *41.15 mm 23-38 SI dim, A4C 46.19 mm 29-53 Area ES, A4C 15.1 cm\S\2 8.8-23.4 Vol, S 40 ml Vol index, S 19.2 ml/m\S\2 Right atrium SI dim, ES, A4C *49.14 mm 34-49 Right ventricle RVID ED, PLAX 26.4 mm 19-38 M-mode measurements Adult Normal Range Left ventricle Stroke vol, Teichholz 78.1 ml Stroke index, 37.4 ml/m\S\2 Teichholz Doppler measurements Adult Normal Range Main pulmonary artery Pressure, S *35 mm Hg <=30 LVOT Peak kaushal, S 75.35 cm/s VTI, S 19.38 cm Peak gradient, S 2 mm Hg Mean gradient, S 1 mm Hg HR 175 bpm Cardiac output 13.7 L/min Cardiac index 6.5 L/(min-m\S\2) Aortic valve Peak kaushal, S 283.18 cm/s Mean kaushal, S 219.94 cm/s VTI, S 73.85 cm Mean gradient, S 21 mm Hg Peak gradient, S 33 mm Hg VTI ratio LVOT/AV 0.26 Area, VTI 1.06 cm\S\2 Area index (VTI) 0.51 cm\S\2/m\S\2 Peak kaushal ratio, 0.27 LVOT/AV Area, Vmax 1.07 cm\S\2 Area index (Vmax) 0.51 cm\S\2/m\S\2 Tricuspid valve Regurg peak kaushal 281.79 cm/s Peak RV-RA gradient, S 32 mm Hg Max regurg kaushal 281.79 cm/s Systemic veins Estimated CVP 3 mm Hg Right ventricle Pressure, S *35 mm Hg <30 Other echo measurements Adult Normal Range Other Legend: Mean values are shown as u=mean value. Asterisk (*) montoya values outside specified normal range. [facility] are accredited with the [facility] Accreditation Commission - Echocardiography. Prepared and Electronically Authenticated Nataly Uribe MD Confirmed 10/10/2016 16:41 Procedure Note Krishan Uribe MD - 10/10/2016 [facility] [place] [address] Transthoracic Echocardiography Patient: Leonel Study ECHO COMPLETE José Luis Armas ID: Gender: M : 1935 Age: 81 Room: Study 10/10/2016 Pt Outpatient Date: Status: Study 10:37 AM CSN #: [id number] Time: Ordering:Chrissie Granger Interpreting:Nataly Urieb MD Buggy Driver: Elba Menendez [facility] Indications and History: Mitral lnsufficiency. Labs, prior tests, procedures, and surgery: Transthoracic echocardiography (October 07, 2015). The mitral valve showed moderate regurgitation. EF was 50%. Coronary artery bypass grafting. Summary and Conclusion: - Left ventricle: The cavity size was mildly dilated. Hypertrophy was noted. Systolic function was mildly reduced. Assessment of systolic function was difficult due to underlying arrhythmia. The left ventricular ejection fraction was 45%, by biplane method of disks. Possible hypokinesis of the basalinferolateral and inferior myocardium. Left ventricular diastolic function parameters were normal. - Right ventricle: The cavity size was dilated. Systolic function was reduced. Systolic pressure was at the upper limits of normal. RV systolic pressure: 35mm Hg (S, est). - Left atrium: The atrium was dilated. - Right atrium: The atrium was dilated. - Aortic valve: Trileaflet; thickened, calcified leaflets. There was moderate to severe stenosis. Mean gradient: 21mm Hg (S). Peak gradient: 33mm Hg (S). Valve area: 1.06cm\S\2(VTI). Peak velocity ratio of LVOT to aortic valve: 0.27. Valve area: 1.07cm\S\2 (Vmax). - Mitral valve: Calcified annulus. Mildly thickened Mild regurgitation. - Tricuspid valve: Moderate regurgitation. - Pulmonic valve: Mild regurgitation. Comparison: Compared to the previous study, aortic stenosishas worsened. Procedure information: Study status: Routine. Procedure: Transthoracic echocardiography. Image quality was adequate. Scanning was performed from the parasternal, apical, subcostal, and suprasternal notch acoustic windows. Intravenous contrast (Definity) was administered to opacify the LV. There were no contrast reactions. Study components: M-mode, 2D, complete spectral Doppler, and color Doppler. Height: Height: 167.6cm. Height: 66in. Weight: Weight: 90.9kg. Weight: 199.6lb. Body mass index: BMI: 32.4kg/m\S\2. Body surface area: BSA: 2.09m\S\2. Blood pressure: 100/80. Patient status: Outpatient. Study date: Study date: October 10, 2016. Cardiac Anatomy: LEFT VENTRICLE: The cavity size was mildly dilated. Hypertrophy was noted. Systolic function was mildly reduced. Assessment of systolic function was difficult due to underlying arrhythmia. The left ventricular ejection fraction was 45%, by biplane method of disks. Regional wall motion abnormalities: Possible hypokinesis of the basalinferolateral and inferior myocardium. Left ventricular diastolic function parameters were normal. RIGHT VENTRICLE: The cavity size was dilated. Systolic function was reduced. Systolic pressure was at the upper limits of normal. LEFT ATRIUM: The atrium was dilated. RIGHT ATRIUM: The atrium was dilated. ATRIAL SEPTUM: No obvious PFO or ASD identified by 2D imaging and color Doppler. AORTIC VALVE: Trileaflet; thickened, calcified leaflets. Valve mobility was restricted. Doppler: There was moderate to severe stenosis. No significant regurgitation. VTI ratio of LVOT to aortic valve: 0.26. Valve area: 1.06cm\S\2(VTI). Indexed valve area: 0.51cm\S\2/m\S\2 (VTI). Peak velocity ratio of LVOT to aortic valve: 0.27. Valve area: 1.07cm\S\2 (Vmax). Indexed valve area: 0.51cm\S\2/m\S\2 (Vmax). Mean gradient: 21mm Hg (S). Peak gradient: 33mm Hg (S). MITRAL VALVE: Calcified annulus. Mildly thickened Mobility was not restricted. No echocardiographic evidence for prolapse. Doppler: There was no evidence for stenosis. Mild regurgitation. TRICUSPID VALVE: Structurally normal valve. Mobility was not restricted. Doppler: There was no evidence for stenosis. Moderate regurgitation. PULMONIC VALVE: Not well visualized. The valve appears to be grossly normal. Doppler: There was no evidence for stenosis. Mild regurgitation. PERICARDIUM: There was no pericardial effusion. AORTA: Aortic root: The aortic root was normal in size. Aortic arch: The aortic arch was normal in size. SYSTEMIC VEINS: Inferior vena cava: The vessel was normal in size. INTRACARDIAC MASS THROMBUS: No apparent intracavitary masses or thrombi detected. 2D measurements Adult Normal Range Left ventricle LVID ED, chord, PLAX *55.99 mm 43-52 LVID ES, chord, PLAX *41.92 mm 23-38 FS, chord, PLAX *25 % >29 LVPW, ED 9 mm IVS/LVPW ratio, ED 1.14 <1.3 Vol ED, MOD1 155 ml Vol ES, MOD1 91.2 ml Stroke vol, MOD1 63.8 ml Vol index, ED, MOD1 74 ml/m\S\2 Vol index, ES, MOD1 44 ml/m\S\2 Stroke index, MOD1 30.5 ml/m\S\2 Vol ED, MOD2 157.2 ml 62-170 Vol ES, MOD2 87 ml EF, MOD2 44.68 % Vol index, ED, MOD2 75 ml/m\S\2 Vol index, ES, MOD2 42 ml/m\S\2 Ventricular septum IVS, ED 10.28 mm LVOT Diam, S 22.6 mm AP diam 22.65 mm Area 4.01 cm\S\2 Aorta Root diam, ED 33.35 mm Left atrium AP dim ES, PLAX *41.15 mm 23-38 SI dim, A4C 46.19 mm 29-53 Area ES, A4C 15.1 cm\S\2 8.8-23.4 Vol, S 40 ml Vol index, S 19.2 ml/m\S\2 Right atrium SI dim, ES, A4C *49.14 mm 34-49 Right ventricle RVID ED, PLAX 26.4 mm 19-38 M-mode measurements Adult Normal Range Left ventricle Stroke vol, Teichholz 78.1 ml Stroke index, 37.4 ml/m\S\2 Teichholz Doppler measurements Adult Normal Range Main pulmonary artery Pressure, S *35 mm Hg <=30 LVOT Peak kaushal, S 75.35 cm/s VTI, S 19.38 cm Peak gradient, S 2 mm Hg Mean gradient, S 1 mm Hg HR 175 bpm Cardiac output 13.7 L/min Cardiac index 6.5 L/(min-m\S\2) Aortic valve Peak kaushal, S 283.18 cm/s Mean kaushal, S 219.94 cm/s VTI, S 73.85 cm Mean gradient, S 21 mm Hg Peak gradient, S 33 mm Hg VTI ratio LVOT/AV 0.26 Area, VTI 1.06 cm\S\2 Area index (VTI) 0.51 cm\S\2/m\S\2 Peak kaushal ratio, 0.27 LVOT/AV Area, Vmax 1.07 cm\S\2 Area index (Vmax) 0.51 cm\S\2/m\S\2 Tricuspid valve Regurg peak kaushal 281.79 cm/s Peak RV-RA gradient, S 32 mm Hg Max regurg kaushal 281.79 cm/s Systemic veins Estimated CVP 3 mm Hg Right ventricle Pressure, S *35 mm Hg <30 Other echo measurements Adult Normal Range Other Legend: Mean values are shown as u=mean value. Asterisk (*) montoya values outside specified normal range. [facility] are accredited with the [facility] Accreditation Commission - Echocardiography. Prepared and Electronically Authenticated Nataly Uribe MD Confirmed 10/10/2016 16:41 us Chrissie Barcipriano ACOUSTIC ENGINEER US ORDERABLES Final Result Performing Organization Address City/State/[facility] Co de Phone Number INTERFACE SYSTEM Refer to clinic/hospital department documented in this encounter Visit Diagnoses Diagnosis Non-rheumatic mitral regurgitation Non-rheumatic mitral regurgitation documented in this encounter Care Teams Radiological Equipment Specialist Relationship Specialty Start Date End Date Dez Tavarez MD [address] [place] [address] [place] [address] PCP - General Family Practice 08/03/12 documented as of this encounter
--- OUTSIDE RECORDS SUMMARY | 2025-03-19 10:06 | XMS_ITS | Clinical Summary ---
Author Organization [facility] Address [address] [place] [address] Care Team Providers Care Geological Specialist Name Role Phone Dez Tavarez MD Primary Care Provider [phone] Allergies Active Allergy Reactions Criticality Noted Date Comments Ciprofloxacin Rash Low 07/21/2011 Sulfa (Sulfonamide Antibiotics) Rash Low 07/03 Medications aspirin (TAMMI) 81 mg Oral Tab Take 1 Tab by mouth daily with breakfast. 1 Tab 0 3 Active omeprazole (PRILOSEC) 20 mg Oral CpDR Take 1 Cap by mouth daily. 30 Cap 1 3 Active finasteride (PROSCAR) 5 mg Oral tablet Take 5 mg by mouth daily. Active TAMSULOSIN HCL (TAMSULOSIN ORAL) Take 0.4 mg by mouth daily. Active hydrochlorothia zide (MICROZIDE) 12.5 mg capsule TAKE 1 CAPSULE BY MOUTH DAILY. 90 Cap 3 4 Active simvastatin (ZOCOR) 80 mg tablet Take 1 Tab by mouth daily. 45 Tab 3 4 Active Additional Information Patient taking differently: 40 mgOral DAILY, Reported on 10/10/2016 nitroglycerin (NITROSTAT) 0.4 mg Tablet, Sublingual Place 1 Tablet (0.4 mg) under tongue every 5 minutes as needed for Chest Pain. 25 Tablet 12 6 Active potassium chloride (KLOR-CON) 20 mEq Extended Release tablet Take 20 mEq by mouth daily. 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) 03/07/2012 Old MA (myocardial infarction) 03/07/2012 CAD (coronary artery disease) 09/07/2011 HTN (hypertension) 09/07/2011 Resolved Problems Problem Noted Date Diagnosed Date Resolved Date Edema 09/07/2011 10/10/2017 Immunizations Immunization Administration Dates Next Due Influenza [...] on file 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 Gender Identity Not on file Sexual Orientation Not on file Occupation Industry Job Start Date Job End Date Not on file Not on file Not on file Not on file Last Filed Vital Signs Vital Sign Reading Time Taken Comments Blood Pressure 118/72 03/06/2019 10:46 AM CDT Pulse 60 03/06/2019 10:46 AM CDT Temperature 36.4 C (97.6 F) 04/02/2013 9:23 AM CDT Respiratory Rate 18 04/02/2013 12:3 0 PM CDT Oxygen Saturation 93% 04/02/2013 12: 30 PM CDT Inhaled Oxygen Concentration - - Weight 87.9 kg (193 lb 12.8 oz) 019 10:46 AM CDT Height 170.2 cm (5' 7 ) 03/06/2019 10:4 6 AM CDT Body Mass Index 30.35 03/06/2019 10:46 AM CDT Plan of Treatment Health Maintenance Due Date Last Done Comments DTAP/TDAP/TD VACCINES (1 - Tdap) 01[birth year]07/1954 PNEUMOCOCCAL VACCINE 50+ YEARS (1 of 1 - PCV) 01/07/19 86 04/02/2009 ZOSTER VACCINE (1 of 2) 01/07/1986 RSV VACCINE (60+ or ) (1 - 1-dose 75+ series) 01/07/2011 INFLUENZA VACCINE (#1) 2025 08/03/2012 Insurance MEDICARE [employer] [place] [id number] Advance Directives For more information, please contact: [phone] * Full Code (Latest Code Status on File) Date Activated Date Inactivated Comments 08/03/2012 6:57 AM 08/03/2012 5:20 PM Care Teams Geological Specialist Relationship Specialty Start Date End Date Dez Tavarez MD [address] [place] [address] [place] [address] PCP - General Family Practice 08/03/12
--- OUTSIDE RECORDS SUMMARY | 2025-03-19 10:06 | XMS_ITS | Encounter Summary ---
Author Organization [facility] Address [address] [place] [address] Care Team Providers Care Abrasive Worker Name Role Phone Dez Tavarez MD Primary Care Provider [phone] Encounter Details Date Type Department Care Team (Late st Contact Info) Description 11/04/2004 Outpatient Historical [facility] 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
--- OUTSIDE RECORDS SUMMARY | 2025-03-19 10:06 | XMS_ITS | Encounter Summary ---
Author Organization [facility] Address [address] [place] [address] Care Team Providers Care Craniologist Name Role Phone Dez Tavarez MD Primary Care Provider [phone] Reason for Referral * Outpatient Services (Routine) - Closed Specialty Diagnoses / Procedures Referred By Juan alcocer Referred To Contact Diagnoses Aortic valve stenosis, unspecified etiology Procedures ECHOCARDIOGRAM W/ CONTRAST AGENT ECHO COMPLETE Julio Hernandez MD [facility] Pre-Registration [place] CALL TO MAKE APPOINTMENT ONLY [address] [place] [address] Phone: tel: fax: Referral ID Status Reason Start Date Expiration Date Visits Re quested Visits Authorized [id number] Closed 10/10/2016 11/10/2017 1 1 Encounter Details Date Type Department Care Team (Late st Contact Info) Description 10/10/[address] 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 Gender Identity Not on file Sexual Orientation Not on file Occupation Industry Job Start Date Job End Date Not on file Not on file Not on file Not on file documented as of this encounter Plan of Treatment Not on file documented as of this encounter Results * ECHOCARDIOGRAM W/ CONTRAST AGENT (10/10/2017 1:20 PM CDT) EJECTION FRACTION 40 INTERFACE SYSTEM 10/10/2017 12:0 7 PM CDT Narrative INTERFACE SYSTEM - 10/10/2017 2:01 PM CDT [facility] Echocardiography-[address] [place] [id number] Transthoracic Echocardiography Patient: Leonel Study ECHO COMPLETE José Luis Armas ID: Gender: M : 1935 Age: 82 Room: Study 10/10/2017 Pt Outpatient Date: Status: Study 12:07 PM CSN #: [id number] Time: Ordering:Julio Hernandez MD Interpreting:Jef Stokes MD 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 Labs, prior tests, procedures, and surgery: Transthoracic echocardiography (October 10, 2016). EF was 45%. Coronary artery bypass grafting (1970). Summary and Conclusion: - Left ventricle: The cavity size was normal. Wall thickness was normal. Systolic function was normal. Assessment of systolic function was difficult due to image quality and underlying arrhythmia. The left ventricular ejection fraction was 40%. Diffuse hypokinesis which is worse in the inferior and inferolateral myocardium. The study is not technically sufficient to allow evaluation of LV diastolic function. - Right ventricle: The cavity size was normal. Systolic function was difficult to assess and probably normal. Systolic pressure was mildly increased. The estimated peak pressure was 40mm Hg. - Left atrium: The atrium was mildly dilated. - Aortic valve: Not well visualized. Thickened, calcified leaflets. There was moderate to severe stenosis. Mean gradient: 21mm Hg (S). Peak gradient: 33mm Hg (S). VTI ratio of LVOT to aortic valve: 0.32. Valve area: 1.17cm\S\2(VTI). Peak velocity ratio of LVOT to aortic valve: 0.32. Valve area: 1.17cm\S\2 (Vmax). - Mitral valve: Mildly calcified annulus. Sclerosis. Mild regurgitation. - Tricuspid valve: Mild regurgitation. - Pulmonic valve: Mild regurgitation. Comparison: Compared to the prior study, there has been no significant interval change. Procedure information: Comparison was made to the study of October 10, 2016. Study status: Routine. Procedure: Transthoracic echocardiography. Image quality was adequate. Scanning was performed from the parasternal, apical, and subcostal acoustic windows. Intravenous contrast (Definity) was administered to opacify the LV. There were no contrast reactions. Study components: M-mode, 2D, complete spectral Doppler, and color Doppler. Height: Height: 167.6cm. Height: 66in. Weight: Weight: 86.2kg. Weight: 189.6lb. Body mass index: BMI: 30.7kg/m\S\2. Body surface area: BSA: 2.03m\S\2. Blood pressure: 116/70. Patient status: Outpatient. Study date: Study date: October 10, 2017. Cardiac Anatomy: LEFT VENTRICLE: The cavity size was normal. Wall thickness was normal. Systolic function was normal. Assessment of systolic function was difficult due to image quality and underlying arrhythmia. The left ventricular ejection fraction was 40%. Diffuse hypokinesis which is worse in the inferior and inferolateral myocardium. The study is not technically sufficient to allow evaluation of LV diastolic function. RIGHT VENTRICLE: The cavity size was normal. Systolic function was difficult to assess and probably normal. Systolic pressure was mildly increased. The estimated peak pressure was 40mm Hg. LEFT ATRIUM: The atrium was mildly dilated. RIGHT ATRIUM: The atrium was normal in size. ATRIAL SEPTUM: No obvious PFO or ASD identified by 2D imaging and color Doppler. AORTIC VALVE: Not well visualized. Thickened, calcified leaflets. Valve mobility was restricted. Doppler: There was moderate to severe stenosis. Trivial regurgitation. VTI ratio of LVOT to aortic valve: 0.32. Valve area: 1.17cm\S\2(VTI). Indexed valve area: 0.58cm\S\2/m\S\2 (VTI). Peak velocity ratio of LVOT to aortic valve: 0.32. Valve area: 1.17cm\S\2 (Vmax). Indexed valve area: 0.58cm\S\2/m\S\2 (Vmax). Mean gradient: 21mm Hg (S). Peak gradient: 33mm Hg (S). MITRAL VALVE: Mildly calcified annulus. Sclerosis. Mobility was not restricted. No echocardiographic evidence for prolapse. Doppler: There was no evidence for stenosis. Mild regurgitation. TRICUSPID VALVE: Structurally normal valve. Mobility was not restricted. Doppler: There was no evidence for stenosis. Mild regurgitation. PULMONIC VALVE: Not well visualized. The [...] intracavitary masses or thrombi detected. 2D measurements Doppler measurements Left ventricle Main pulmonary artery LVID ED, chord, 55.55 mm Pressure, 41 mm Hg PLAX S LVID ES, chord, 47.24 mm LVOT PLAX Peak kaushal, 91.08 cm/s FS, chord, PLAX 15 % S LVPW, ED 8.9 mm VTI, S 23.72 cm IVS/LVPW ratio, 1.17 Peak 3 mm Hg ED gradient, Ventricular septum S IVS, ED 10.37 mm HR 55 bpm LVOT Cardiac 4.8 L/min Diam, S 21.6 mm output AP diam 21.65 mm Cardiac 2.3 L/(min-m\S\2) Area 3.66 cm\S\2 index Aorta Aortic valve Root diam, ED 32.98 mm Peak kaushal, 285.76 cm/s AAo AP diam, S 32.37 mm S Left atrium Mean kaushal, 222.07 cm/s AP dim ES, PLAX 46.28 mm S SI dim, A4C 52.58 mm VTI, S 74.66 cm Area ES, A4C 20.09 cm\S\2 Mean 21 mm Hg Vol, S 63 ml gradient, Vol index, S 31 ml/m\S\2 S Right atrium Peak 33 mm Hg SI dim, ES, A4C 54.35 mm gradient, Right ventricle S RVID ED, PLAX 23.51 mm VTI ratio 0.32 LVOT/AV M-mode measurements Area, VTI 1.17 cm\S\2 Left ventricle Area index 0.58 cm\S\2/m\S\2 Stroke vol, 87.3 ml (VTI) Teichholz Peak kaushal 0.32 Stroke index, 43 ml/m\S\2 ratio, Teichholz LVOT/AV Area, Vmax 1.17 cm\S\2 Area index 0.58 cm\S\2/m\S\2 (Vmax) Tricuspid valve Regurg 306.64 cm/s peak kuashal Peak RV-RA 38 mm Hg gradient, S Max regurg 306.64 cm/s kaushal Systemic veins Estimated 3 mm Hg CVP [facility] are accredited with the [facility] Accreditation Commission - Echocardiography. 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 Labs, prior tests, procedures, and surgery: Transthoracic echocardiography (October 10, 2016). EF was 45%. Coronary artery bypass grafting (1970). Summary and Conclusion: - Left ventricle: The cavity size was normal. Wall thickness was normal. Systolic function was normal. Assessment of systolic function was difficult due to image quality and underlying arrhythmia. The left ventricular ejection fraction was 40%. Diffuse hypokinesis which is worse in the inferior and inferolateral myocardium. The study is not technically sufficient to allow evaluation of LV diastolic function. - Right ventricle: The cavity size was normal. Systolic function was difficult to assess and probably normal. Systolic pressure was mildly increased. The estimated peak pressure was 40mm Hg. - Left atrium: The atrium was mildly dilated. - Aortic valve: Not well visualized. Thickened, calcified leaflets. There was moderate to severe stenosis. Mean gradient: 21mm Hg (S). Peak gradient: 33mm Hg (S). VTI ratio of LVOT to aortic valve: 0.32. Valve area: 1.17cm\S\2(VTI). Peak velocity ratio of LVOT to aortic valve: 0.32. Valve area: 1.17cm\S\2 (Vmax). - Mitral valve: Mildly calcified annulus. Sclerosis. Mild regurgitation. - Tricuspid valve: Mild regurgitation. - Pulmonic valve: Mild regurgitation. Comparison: Compared to the prior study, there has been no significant interval change. Procedure information: Comparison was made to the study of October 10, 2016. Study status: Routine. Procedure: Transthoracic echocardiography. Image quality was adequate. Scanning was performed from the parasternal, apical, and subcostal acoustic windows. Intravenous contrast (Definity) was administered to opacify the LV. There were no contrast reactions. Study components: M-mode, 2D, complete spectral Doppler, and color Doppler. Height: Height: 167.6cm. Height: 66in. Weight: Weight: 86.2kg. Weight: 189.6lb. Body mass index: BMI: 30.7kg/m\S\2. Body surface area: BSA: 2.03m\S\2. Blood pressure: 116/70. Patient status: Outpatient. Study date: Study date: October 10, 2017. Cardiac Anatomy: LEFT VENTRICLE: The cavity size was normal. Wall thickness was normal. Systolic function was normal. Assessment of systolic function was difficult due to image quality and underlying arrhythmia. The left ventricular ejection fraction was 40%. Diffuse hypokinesis which is worse in the inferior and inferolateral myocardium. The study is not technically sufficient to allow evaluation of LV diastolic function. RIGHT VENTRICLE: The cavity size was normal. Systolic function was difficult to assess and probably normal. Systolic pressure was mildly increased. The estimated peak pressure was 40mm Hg. LEFT ATRIUM: The atrium was mildly dilated. RIGHT ATRIUM: The atrium was normal in size. ATRIAL SEPTUM: No obvious PFO or ASD identified by 2D imaging and color Doppler. AORTIC VALVE: Not well visualized. Thickened, calcified leaflets. Valve mobility was restricted. Doppler: There was moderate to severe stenosis. Trivial regurgitation. VTI ratio of LVOT to aortic valve: 0.32. Valve area: 1.17cm\S\2(VTI). Indexed valve area: 0.58cm\S\2/m\S\2 (VTI). Peak velocity ratio of LVOT to aortic valve: 0.32. Valve area: 1.17cm\S\2 (Vmax). Indexed valve area: 0.58cm\S\2/m\S\2 (Vmax). Mean gradient: 21mm Hg (S). Peak gradient: 33mm Hg (S). MITRAL VALVE: Mildly calcified annulus. Sclerosis. Mobility was not restricted. No echocardiographic evidence for prolapse. Doppler: There was no evidence for stenosis. Mild regurgitation. TRICUSPID VALVE: Structurally normal valve. Mobility was not restricted. Doppler: There was no evidence for stenosis. Mild regurgitation. PULMONIC VALVE: Not well visualized. The [...] intracavitary masses or thrombi detected. 2D measurements Doppler measurements Left ventricle Main pulmonary artery LVID ED, chord, 55.55 mm Pressure, 41 mm Hg PLAX S LVID ES, chord, 47.24 mm LVOT PLAX Peak kaushal, 91.08 cm/s FS, chord, PLAX 15 % S LVPW, ED 8.9 mm VTI, S 23.72 cm IVS/LVPW ratio, 1.17 Peak 3 mm Hg ED gradient, Ventricular septum S IVS, ED 10.37 mm HR 55 bpm LVOT Cardiac 4.8 L/min Diam, S 21.6 mm output AP diam 21.65 mm Cardiac 2.3 L/(min-m\S\2) Area 3.66 cm\S\2 index Aorta Aortic valve Root diam, ED 32.98 mm Peak kaushal, 285.76 cm/s AAo AP diam, S 32.37 mm S Left atrium Mean kaushal, 222.07 cm/s AP dim ES, PLAX 46.28 mm S SI dim, A4C 52.58 mm VTI, S 74.66 cm Area ES, A4C 20.09 cm\S\2 Mean 21 mm Hg Vol, S 63 ml gradient, Vol index, S 31 ml/m\S\2 S Right atrium Peak 33 mm Hg SI dim, ES, A4C 54.35 mm gradient, Right ventricle S RVID ED, PLAX 23.51 mm VTI ratio 0.32 LVOT/AV M-mode measurements Area, VTI 1.17 cm\S\2 Left ventricle Area index 0.58 cm\S\2/m\S\2 Stroke vol, 87.3 ml (VTI) Teichholz Peak kaushal 0.32 Stroke index, 43 ml/m\S\2 ratio, Teichholz LVOT/AV Area, Vmax 1.17 cm\S\2 Area index 0.58 cm\S\2/m\S\2 (Vmax) Tricuspid valve Regurg 306.64 cm/s peak kaushal Peak RV-RA 38 mm Hg gradient, S Max regurg 306.64 cm/s kaushal Systemic veins Estimated 3 mm Hg CVP [facility] are accredited with the [facility] Accreditation Commission - Echocardiography. Prepared and Electronically Authenticated Jef Stokes MD Confirmed 10/10/2017 14:01 us Julio Hernandez MD ORDERABLES Final Result Performing Organization Address City/State/[facility] Co co Phone Number INTERFACE SYSTEM Refer to clinic/hospital department documented in this encounter Visit Diagnoses Diagnosis Aortic valve stenosis, unspecified etiology Aortic valve stenosis, unspecified etiology documented in this encounter Care Teams Craniologist Relationship Specialty Start Date End Date Dez Tavarez MD [address] [place] [address] [place] [address] PCP - General Family Practice 08/03/12 documented as of this encounter
--- NOTE | 2025-03-19 11:20 | XR_ITS ---
WS: [id number] XR chest 1V portable [id number] REASON FOR EXAM: chest pain FINDINGS: The chest is unchanged compared to the examination of 02/19/2023. Moderate to significant tortuosity and ectasia of the thoracic aorta with calcification of the aortic arch. Aortic stent graft. Mild cardiomegaly. Minimal central pulmonary venous congestion. No acute pulmonary parenchymal or pleural abnormality. Bilateral shoulder arthroplasties. XR/XR chest 1V portable [id number] IMPRESSION: Stable chest with cardiomegaly as above.
--- NOTE | 2025-03-19 11:27 | W.ED.CHESTPA ---
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 but no focal deficits residually, presenting to the emergency department with approximately 45-minute episode of left-sided chest pain radiating to the shoulder blade that started while he was eating breakfast at approximately 8:30 AM, he did take a nitroglycerin afterwards, his pain resolved completely by 9:30 AM and he is now asymptomatic for the last 2 hours, no associated fevers cough shortness of breath, no recent illnesses or infections, no exertional component to the pain, no radiation into the arm or the jaw, no diaphoresis or nausea associated with the event, patient has good outpatient cardiology follow-up with his hvac design engineer in [place] who he prefers to obtain all cardiology related evaluation through. No recent travel or immobilization no leg pain or calf swelling, no abdominal pain, no vomiting or diarrhea Related Data Home Medications ?Medication ?Instructions ?Recorded ?Confirmed finasteride 5 mg tablet 5 mg PO DAILY 01/14/20 03/19/25 apixaban 5 mg tablet (Eliquis) 5 mg PO BID 02/19/23 03/19/25 aspirin 81 mg tablet,delayed 81 mg PO DAILY 02/19/23 03/19/25 release cholecalciferol (vitamin D3) 25 25 mcg PO DAILY 02/19/23 03/19/25 mcg (1,000 unit) capsule (Vitamin D3) donepezil 10 mg tablet 10 mg PO BEDTIME 02/19/23 03/19/25 nitroglycerin 0.4 mg sublingual 0.4 mg sublingual Q5M PRN Chest 02/19/23 03/19/25 tablet (Nitrostat) Pain omeprazole 20 mg capsule,delayed 20 mg PO DAILY 02/19/23 03/19/25 release simvastatin 40 mg tablet 40 mg PO QPM 02/19/23 03/19/25 ferrous sulfate 325 mg (65 mg 325 mg PO DAILY 03/19/25 03/19/25 iron) tablet Previous Rx's ?Medication ?Instructions ?Recorded CUSTOM TIP PROTECTOR #1 ea 06/15/23 Allergies Allergy/AdvReac Type Severity Reaction Status Date / Time ciprofloxacin (From Cipro) Allergy rash Verified 03/19/25 10:09 Sulfa (Sulfonamide Allergy rash Verified 03/19/25 10:09 Antibiotics) PFS ED PFSH: Medical History Recurrent UTI BPH loc w urin obs/LUTS Surgical History H/O major abdominal surgery H/O colostomy H/O shoulder surgery H/O hernia repair Hx of CABG Family History Family/Other Cancer CAD (coronary artery disease) Diabetes Social History Smoking and tobacco/nicotine status: never used tobacco/nicotine Alcohol intake: never Substance/Drug Use: never Marital status: Physical Exam Narrative: EXAM NARRATIVE: Gen: A&Ox4, no acute distress, nontoxic appearing HEENT: Normocephalic, atraumatic, no scleral icterus, external ears normal, moist mucous membranes Neck: Supple, full range of motion, no observable masses Lungs: No Respiratory distress, Lungs clear to auscultation bilaterally no rales, rhonchi, wheezing CV: Regular rate and rhythm, no murmur, no pitting edema to lower extremities bilaterally, sternotomy scar to chest wall Abdomen: Soft, nondistended, nontender to palpation MSK: No joint swelling, FROM all 4 extremities Skin: No rashes, petechiae, lesions. Normal color per patient. Neuro: Alert and oriented, no slurred speech, sensation and strength grossly intact all 4 extremities Psych: Appropriate for situation. Course Reevaluation(s): Reevaluation #1: I reassessed the patient at this time, he is still asymptomatic, feels well, discussed the results of his workup including his moderate risk heart score putting him at approximately 12 to 16% chance of major adverse cardiovascular events in the near future. I did offer him medical admission for inpatient urgent workup including echocardiogram and stress testing, at this time he has a good relationship and the ability to obtain close follow-up with his hvac design engineer in [place], he prefers to have all cardiovascular testing done through them, and prefers to be discharged to follow-up with them in the outpatient setting. He understands the importance of returning to the ER if this chest pain were to recur or worsen, he does understand the inherently increased risk associated with obtaining outpatient workup and his family member at the bedside was present for this discussion and is also in agreement. Time: 14:17 Vital Signs: Vital signs: Vital Signs Temperature 97.8 F 03/19/25 10:00 Pulse Rate 80 03/19/25 10:00 Blood Pressure 160/78 03/19/25 10:00 Pulse Oximetry 97 03/19/25 10:00 Oxygen Delivery Me thod Room Air 03/19/25 10:00 MDM - Chest Pain Medical Decision Making 89-year-old male history of CAD status post 5 vessel CABG, aortic valve replacement in 2021 (angiogram during procedure showed clear coronaries per his report), postprocedural stroke with mild memory deficits but no focal residual deficits, otherwise generally healthy, history of diverticulitis perforated with reverse colostomy in the past, presenting with onset of nonexertional chest pain while eating breakfast this morning at 830, did improve somewhat with nitro and radiate to the back currently asymptomatic no radiation to the jaw or arm no nausea or diaphoresis, no history of exertional angina in the recent past, last echo 1 year ago was reportedly normal per his report but not available for my review, follows with a hvac design engineer in [place], currently asymptomatic with a normal exam and stable vital signs other than mild to moderate hypertension, plan for cardiac rapid rule out given moderate risk heart score of 6, serial enzymes, reassess for disposition. Anticipate shared decision making with patient with consideration of observation type admission for cardiac restratification and consideration of stress test versus follow-up in the outpatient setting with his preferred hvac design engineer in [place]. This would involve a discussion of the heart score as well as his risk of major adverse cardiovascular events as well as the limitations in an ED evaluation in ruling out clinically significant obstructive coronary artery disease that may warrant urgent intervention. Lab Data Labs showing negative troponin x 2, no leukocytosis or anemia, normal D-dimer, 03/19/25 11:29 03/19/25 11:29 Radiology Impressions Chest X-Ray 03/19/25 11:20 IMPRESSION: Stable chest with cardiomegaly as above. Laboratory Results WBC 8.29 10^3/uL (3.29-11.43) 03/19/25 11:29 RBC 4.50 10^6/uL (3.85-5.65) 03/19/25 11:29 Hgb 12.80 g/dL (11.27-16.99) 03/19/25 11:29 Hct 39.8 % (37-53) 03/19/25 11:29 MCV 88.4 fl (82-101) 03/19/25 11:29 MCH 28.4 pg (27-33) 03/19/25 11:29 MCHC 32.2 g/dL (30-55) 03/19/25 11:29 RDW 14.6 % (12.1-15.1) 03/19/25 11:29 Plt Count 215 10^3/cmm (157-399) 03/19/25 11:29 MPV 8.9 fL (7.4-10.4) 03/19/25 11: Neut % (Auto) 73.0 % 03/19/25 11: Lymph % (Auto) 14.2 % 03/19/25 11:29 [place] % (Auto) 10.0 % 03/19/25 11: Eos % (Auto) 1.8 % 03/19/25 11:29 Baso % (Auto) 0.6 % 03/19/25 11:29 Neut # (Auto) 6.05 10^3/uL (1.8-7.7) 03/19/25 11:29 Lymph # (Auto) 1.2 10^3/uL (0.8-4.8) 03/19/25 11:29 [place] # (Auto) 0.8 10^3/uL (0.2-0.9) 03/19/25 11:29 Eos # (Auto) 0.2 10^3/uL (0.0-0.8) 03/19/25 11:29 Baso # (Auto) 0.1 10^3/uL (0.0-0.1) 03/19/25 11:29 Nucleated RBC % (auto) 0 % 03/19/25 11:29 Nucleated RBCs # 0.0 /100WBC 03/19/25 11:29 PT 15.80 SECONDS (12.1-14.9) H 03/19/25 11:29 INR 1.18 (0.8-1.2) 03/19/25 11:29 APTT 35.3 SECONDS (23.9-36.7) 03/19/25 11:29 D-Dimer 0.49 ug/mLFEU (0-0.59) 03/19/25 11:29 Sodium 139 mmol/L (136-145) 03/19/25 11:29 Potassium 4.7 mmol/L (3.5-5.1) 03/19/25 11:29 Chloride 102 mmol/L (98-107) 03/19/25 11:29 Carbon Dioxide 26 mmol/L (22-29) 03/19/25 11:29 Anion Gap 15.7 (5-19) 03/19/25 11:29 BUN 19 mg/dL (8-23) 03/19/25 11:29 Creatinine 0.8 mg/dL (0.7-1.2) 03/19/25 11:29 GFR Calculation Not Reportable 03/19/25 11:29 Glucose 83 mg/dL (65-115) 03/19/25 11:29 Calculated Osmolality 289 mOsm/kg (285-295) 03/19/25 11:29 Calcium 9.0 mg/dL (8.5-10.5) 03/19/25 11:29 Total Bilirubin 0.4 mg/dL (0.15-1.2) 03/19/25 11:29 AST 21 U/L (0-40) 03/19/25 11:29 ALT 14 U/L (0-41) 03/19/25 11:29 Alkaline Phosphatase 95 U/L (40-130) 03/19/25 11:29 Troponin T Baseline 14 ng/L (0-15) 03/19/25 11:29 Troponin T 120 Minute 14.83 ng/L (0-15) 03/19/25 13:15 Delta Troponin T 0.83 ABS# (0-10) 03/19/25 13:15 NT-Pro-B Natriuret Pep 1009 pg/mL (0-450) H 03/19/25 11:29 Total Protein 6.7 g/dL (6.6-8.7) 03/19/25 11:29 Albumin 3.9 g/dL (3.5-5.2) 03/19/25 11:29 Globulin 2.8 g/dL (1.3-4.6) 03/19/25 11:29 Lipase 33 U/L (13-60) 03/19/25 11:29 All radiology interpretation(s) finalized by discharge ED provider radiology interpretation(s): Chest x-ray no pleural effusion no pulmonary edema no pneumothorax no consolidation EKG Data EKG 1: I personally reviewed and interpreted this EKG as follows: EKG interpretation date: 03/19/25 EKG interpretation time: 10:05 Prior EKG tracings: available for review Computer generated interpretation: Sinus rhythm at 85 bpm with marked sinus arrhythmia and first-degree AV block, poor R wave progression/old anterior WA, no STEMI, QTc 422 ms, normal axis, no significant acute ischemic changes compared to EKG 02/19/2023 EKG 2: I personally reviewed and interpreted this EKG as follows: EKG interpretation date: 03/19/25 EKG interpretation time: 13:15 Prior EKG tracings: available for review Interpretation: Sinus rhythm at 77 bpm, poor R wave progression possible old anterior WA with Q waves in V3 and mildly to V4, no STEMI, QTc 417 ms (computer read out as atrial fibrillation however I see clear visible atrial activity, there is a PAC present) Clincial Decision Support The following clinical decision support tools were used to aid in care of the patient HEART Score -> History: Moderately Suspicious, EKG: Non-specific Changes, Age: 65 or more yrs, Risk Factors: >/=3 Risk Factors, Troponin: Baseline Trop <16 ng/L. Resulting HEART Score: 6. Discharge Plan Discharge Patient Disposition: Home Clinical Impression: Chest pain Condition: Stable Prescriptions: No Action finasteride 5 mg tablet 5 mg PO DAILY (DME) CUSTOM TIP PROTECTOR See Rx Instructions .Route .MEDSUPPLY Qty: 1 0RF Rx Instructions: As directed donepezil 10 mg tablet 10 mg PO BEDTIME aspirin 81 mg Tablet,Delayed Release (Dr/Ec) 81 mg PO DAILY simvastatin 40 mg tablet 40 mg PO QPM nitroglycerin [Nitrostat] 0.4 mg Tablet, Sublingual 0.4 mg SUBLINGUAL Q5M PRN (Reason: Chest Pain) Rx Instructions: do not exceed 3 doses per episode omeprazole 20 mg capsule,delayed release(DR/EC) 20 mg PO DAILY cholecalciferol (vitamin D3) [Vitamin D3] 25 mcg (1,000 unit) Capsule 25 mcg PO DAILY Eliquis 5 mg tablet 5 mg PO BID ferrous sulfate 325 mg (65 mg iron) Tablet 325 mg PO DAILY Discharge Orders: Discharge ED (Routine); Ordered 03/19/25 Ordered By: Paulo Merino Referrals: Zulema Manning APN [Primary Care Provider, Family Practice] Patient Instructions: Chest Pain (ED), Patient Portal & [facility] Instructions Print Language: Latvian Coding Level of Care Code ED Management Manager for Malik Arboleda
[2025-03-19 11:37] LABS: Hematocrit 39.8 % (37-53); Hemoglobin 12.80 g/dL (11.27-16.99); Mean Corpuscular HGB Conc 32.2 g/dL (30-55); Mean Corpuscular Hemoglobin 28.4 pg (27-33); Mean Corpuscular Volume 88.4 fl (82-101); Nucleated Red Blood Cells % 0 %; Platelet Count 215 10^3/cmm (157-399); Red Blood Count 4.50 10^6/uL (3.85-5.65); White Blood Count 8.29 10^3/uL (3.29-11.43)
[2025-03-19 11:52] LABS: INR 1.18 (0.8-1.2); Partial Thromboplastin Time 35.3 SECONDS (23.9-36.7); Prothrombin Time 15.80 SECONDS (12.1-14.9)
[2025-03-19 12:01] LABS: Troponin(5th) Baseline 14 ng/L (0-15)
[2025-03-19 12:08] LABS: Alanine Aminotransferase 14 U/L (0-41); Albumin Level 3.9 g/dL (3.5-5.2); Alkaline Phosphatase 95 U/L (40-130); Anion Gap 15.7 (5-19); Aspartate Amino Transferase 21 U/L (0-40); Blood Urea Nitrogen 19 mg/dL (8-23); Calcium 9.0 mg/dL (8.5-10.5); Carbon Dioxide 26 mmol/L (22-29); Chloride 102 mmol/L (98-107); Creatinine Clr Calc Pharmacy 61.2039; Globulin 2.8 g/dL (1.3-4.6); Glucose 83 mg/dL (65-115); Lipase 33 U/L (13-60); NT Pro B Type Natriuretic Pept 1009 pg/mL (0-450); Osmolality Calculated 289 mOsm/kg (285-295); Potassium 4.7 mmol/L (3.5-5.1); Sodium 139 mmol/L (136-145); Total Protein 6.7 g/dL (6.6-8.7)
--- NOTE | 2025-03-19 13:07 | ECG_ITS ---
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 Measurements Intervals [place] Rate: 77 P: 0 CT: 0 QRS: 25 QRSD: 95 T: 53 QT: 385 QTc: 438 Interpretive Statements Normal sinus rhythm with a first-degree AV block POSSIBLE ANTERIOR MYOCARDIAL INFARCTION , PROBABLY OLD [30 ms Q WAVE IN V3/V4, OR R < 0.2 mV IN V4] ABNORMAL RHYTHM ECG Compared to ECG 03/19/2025 10:05:12 Sinus rhythm no longer present Sinus arrhythmia no longer present First degree AV block no longer present Myocardial infarct finding still present Electronically Signed On 03-19-2025 13:53:25 CDT by Yash Nava M.D. [email or web address]
--- NOTE | 2025-03-19 13:12 | PC.PHAR ---
Verified medications with pts' family member who has current list.
[2025-03-19 13:41] LABS: Troponin 5 2HR 14.83 ng/L (0-15); Troponin 5 2HR Delta 0.83 ABS# (0-10)
[2025-03-19 15:30] VITALS: BP 159/92; PULSE 76; O2SAT 98
[2025-03-19 15:35] VITALS: BP 159/92; PULSE 74; O2SAT 99
== END 2025-03-19 15:37 | disposition home or self-care (01) ==
PROVIDERS: Emergency Provider Student in an Organized Health Care Education/Training Program; PCP Nurse Practitioner Family
DX: R07.9 Chest pain, unspecified (principal); Z79.82 Long term (current) use of aspirin; Z79.01 Long term (current) use of anticoagulants; Z95.1 Presence of aortocoronary bypass graft; E78.5 Hyperlipidemia, unspecified
CPT/HCPCS: 36415; 71045; 80053; 83690; 83880; 84484; 85025; 85378; 85610; 85730; 93005; 99285; J9999